=== PATIENT | female | born 1935 | race Caucasian/White ===

== ENCOUNTER 2017-11-28 15:15 | Outpatient (CLI) | payer MEDICARE ==
[2017-11-28 17:17] LABS: INR 2.4 (0.8-1.2); PT - PROTHROMBIN TIME 27.4 secs (9.9-12.6)
== END 2017-11-28 15:16 | disposition home or self-care (01) ==
LOC: LAB.F 15:15
PROVIDERS: ATTEND Emergency Medicine
DX: I48.91 Unspecified atrial fibrillation (principal)
CPT/HCPCS: 36415; 85610

== ENCOUNTER 2018-01-16 13:55 | Outpatient (CLI) | payer MEDICARE ==
[2018-01-16 17:37] LABS: INR 2.7 (0.8-1.2); PT - PROTHROMBIN TIME 30.6 secs (9.9-12.6)
== END 2018-01-16 13:56 | disposition home or self-care (01) ==
LOC: LAB.F 13:55
PROVIDERS: ATTEND Emergency Medicine
DX: I48.91 Unspecified atrial fibrillation (principal)
CPT/HCPCS: 36415; 85610

== ENCOUNTER 2018-02-15 11:20 | Outpatient (CLI) | payer MEDICARE | END 2018-02-15 11:21 | disposition critical access hospital (66) | LOC: EMS 11:20 | PROVIDERS: ATTEND Surgery | DX: T14.90XA Injury, unspecified, initial encounter (principal); W19.XXXA Unspecified fall, initial encounter; Y92.009 Unspecified place in unspecified non-institutional (private) residence as the place of occurrence of the external cause | CPT/HCPCS: A0425; A0427 ==

== ENCOUNTER 2018-02-15 11:23 | Observation (INO) | payer MEDICARE ==
[2018-02-15] MEDS ORDERED: HYDROmorphone 1 MG/ML CARPUJECT IVP STA (11:33)
[2018-02-15] MEDS ORDERED: ONDANSETRON 4 MG/2 ML VIAL IVP STA (11:33)
[2018-02-15] MEDS ORDERED: SODIUM CHLORIDE 0.9% 1,000 ML IV ONE (11:33)
--- NOTE | 2018-02-15 11:38 | ED Physician Documentation ---
PD HPI MAJOR TRAUMA - Stated complaint Stated Complaint: GLF - Chief complaint Chief Complaint: Trauma Hd/Nk - History obtained from History obtained from: Patient, EMS - History of Present Illness Mechanism of injury: Fell (possible syncope) Where injury occurred: Home Timing - onset: How many hours ago (1) Injury(ies) location: Head, Face, Neck, Right Upper Extremity (shoulder), Left Lower Extremity (hip) Pain level max: 8 Pain level now: 8 Quality of pain: Pain Associated symptoms: LOC (doesn't recall anything about the event.). No: Seizures, Weakness, Paresthesias, Dyspnea, Nausea / vomiting Symptoms improve with: Rest Worsens with: Movement Contributing factors: Anticoagulated (warfarin for Afib) Similar symptoms before: Has not had sx before Recently seen: Not recently seen - Additional information Additional information: Patient was at home today when a aircraft maintenance supervisor knocked on her door, the aircraft maintenance supervisor then heard a thud, entered the apartment and found her on the ground. Patient has no recollection of any events. Review of Systems Ten Systems: 10 systems reviewed and negative Constitutional: denies: Fever, Chills Throat: denies: Sore throat Respiratory: denies: Cough GI: denies: Vomiting Skin: denies: Rash Musculoskeletal: denies: Neck pain, Back pain Neurologic: denies: Focal weakness, Numbness, Headache PD PAST MEDICAL HISTORY - Past Medical History Past Medical History: Yes Cardiovascular: Atrial fibrillation - Past Surgical History Cardiovascular: Pacemaker - Allergies Allergies/Adverse Reactions: Allergies Allergy/AdvReac Type Severity Reaction Status Date / Time codeine Allergy Edema Verified 02/15/18 11:36 - Living Situation Living Situation: reports: Alone Living Arrangement: reports: At home - Social History Does the pt smoke?: No Does the pt drink ETOH?: No Does the pt have substance abuse?: No - Family History Family history: reports: Non contributory PD ED PE NORMAL - Vitals Vital signs reviewed: Yes - General General: Alert and oriented X 3, No acute distress - HEENT HEENT: Ears normal, Moist mucous membranes, Pharynx benign, Dentition benign, Other (Right eye is swollen, patient unable to open. There is significant swelling to the right periorbital area. Otherwise unremarkable examination of the head and face.) - Neck Neck: Supple, no meningeal sign, Other (Mild tender palpation mid C-spine. No step-off or deformity) - Cardiac Cardiac: RRR, Strong equal pulses - Respiratory Respiratory: No respiratory distress, Clear bilaterally - Abdomen Abdomen: Soft, Non tender, Non distended - Back Back: No spinal TTP - Derm Derm: Warm and dry - Extremities Extremities: Other (Tender palpation over the right glenohumeral joint. Also tender palpation over the left hip) - Neuro Neuro: Alert and oriented X 3, No motor deficit, No sensory deficit - Psych Psych: Normal mood, Normal affect Results - Vitals Vitals: Vital Signs - 24 hr 02/15/18 02/15/18 02/15/18 11:22 13:13 14:13 Temperature 36.1 C L Heart Rate 73 61 64 Respiratory 22 13 16 Rate Blood Pressure 152/72 H 135/67 H 115/61 O2 Saturation 98 98 97 02/15/18 02/15/18 14:57 15:36 Temperature Heart Rate 66 64 Respiratory 17 16 Rate Blood Pressure 128/69 120/64 O2 Saturation 98 97 Oxygen O2 Source Nasal cannula - EKG (time done) 1230 Rate: Rate (enter#) (71) Rhythm: NSR Henriette: Normal Intervals: Normal TX QRS: Normal, LVH Ischemia: Normal ST segments - Labs Labs: Laboratory Tests 02/15/18 02/15/18 02/15/18 11:39 11:39 11:39 WBC 12.9 H RBC 3.91 L Hgb 12.6 Hct 37.9 MCV 96.7 MCH 32.1 H MCHC 33.2 RDW 14.3 Plt Count 251 MPV 8.1 Neut # (Auto) 6.1 Lymph # (Auto) 5.4 H [place] # (Auto) 1.1 H Eos # (Auto) 0.2 Baso # (Auto) 0.1 Absolute Nucleated RBC 0.00 Nucleated RBC % 0.0 PT INR Sodium 138 Potassium 3.6 Chloride 102 Carbon Dioxide 25 Anion Gap 11.0 BUN 19 Creatinine 1.0 Estimated GFR (MDRD) 53 L Glucose 103 H Calcium 8.7 Total Bilirubin 0.7 AST 41 ALT 14 Alkaline Phosphatase 88 Troponin I < 0.04 Total Protein 7.0 Albumin 3.5 Globulin 3.5 Albumin/Globulin Ratio 1.0 Lipase 35 02/15/18 Unknown WBC RBC Hgb Hct MCV MCH MCHC RDW Plt Count MPV Neut # (Auto) Lymph # (Auto) [place] # (Auto) Eos # (Auto) Baso # (Auto) Absolute Nucleated RBC Nucleated RBC % PT 37.9 H INR 3.4 H Sodium Potassium Chloride Carbon Dioxide Anion Gap BUN Creatinine Estimated GFR (MDRD) Glucose Calcium Total Bilirubin AST ALT Alkaline Phosphatase Troponin I Total Protein Albumin Globulin Albumin/Globulin Ratio Lipase - Rads (name of study) head CT Radiology: Prelim report reviewed, EMP read contemporaneously, See rad report (Right orbital floor hematoma with blood within the maxillary sinus, better appreciated and detailed on dedicated maxillofacial CT. 2. No evidence for acute intracranial injury. 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 ) C-spine CT Radiology: Prelim report reviewed, EMP read contemporaneously, See rad report (No evidence for acute osseous injury cervical spine. Mild degenerative changes. ) facial bones CT Radiology: Prelim report reviewed, EMP read contemporaneously, See rad report (Right orbital floor and minimal tenting of the inferior rectus muscle without definite herniation. Buckling of the right medial maxillary wall suggestive of associated fracture. Right maxillary sinus hematoma. Extensive right periorbital hematoma. ) R shoulder xray Radiology: Prelim report reviewed, EMP read contemporaneously, See rad report (Findings are suspicious for a superior lateral humeral head fracture although difficult to diagnose with certainty. No distinct cortical break is seen. There is a "double density" at the superolateral aspect of the humeral head. If additional diagnostic confidence is needed, CT would be helpful. ) L hip xray Radiology: Prelim report reviewed, EMP read contemporaneously, See rad report (Evidence of prior left proximal femur fracture post ORIF. No acute fracture or other acute osseous abnormality identified. ) R UE CT Radiology: Prelim report reviewed, EMP read contemporaneously, See rad report ( No visible fracture. 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 ) PD MEDICAL DECISION MAKING - ED course Complexity details: reviewed results, re-evaluated patient, considered differential, d/w patient, d/w family, d/w business information consultant ED course: 83-year-old female presents to the emergency department after what sounds like a syncopal event to which she lost consciousness, fell to the ground and has a right orbital blowout fracture. Extraocular movements are intact. No hyphema. Normal vision out of the right eye. Discussed the case with Jay Mcdowell who recommends observing the patient overnight here for a syncopal workup and if there are issues with placement if she needs this, to recontact [facility] if she requires further assistance. I also discussed the case with Dr. Emiliano Lorenzo [facility] who recommends outpatient follow-up in his office for the fracture. Discussed the case with Dr. Tran, the hospitalist here who accepts for obs for syncope. This document was made in part using voice recognition software. While efforts are made to proofread this document, sound alike and grammatical errors may occur. Departure - Departure Disposition: ED Place in Observation Clinical Impression: Orbital floor (blow-out) closed fracture Syncope Qualifiers: Syncope type: unspecified Qualified Code(s): R55 - Syncope and collapse Periorbital contusion of right eye Qualifiers: Encounter type: initial encounter Qualified Code(s): S05.11XA - Contusion of eyeball and orbital tissues, right eye, initial encounter Condition: Stable
[2018-02-15 11:42] LABS: BASOPHILS # (AUTO) 0.1 10^3/uL (0.0-0.1); BASOPHILS % (AUTO) 0.8 %; EOSINOPHILS # (AUTO) 0.2 10^3/uL (0.0-0.7); EOSINOPHILS % (AUTO) 1.8 %; HGB - HEMOGLOBIN 12.6 g/dL (12.0-16.0); LYMPHOCYTES # (AUTO) 5.4 10^3/uL (1.5-3.5); LYMPHOCYTES % (AUTO) 41.7 %; MEAN CORPUSCULAR HEMOGLOBIN 32.1 pg (27.0-31.0); MEAN CORPUSCULAR HGB CONC 33.2 g/dL (32.0-36.0); MEAN CORPUSCULAR VOLUME 96.7 fL (81.0-99.0); MEAN PLATELET VOLUME 8.1 fL (7.9-10.8); MONOCYTES # (AUTO) 1.1 10^3/uL (0.0-1.0); MONOCYTES % (AUTO) 8.5 %; NEUTROPHILS # (AUTO) 6.1 10^3/uL (1.5-6.6); NEUTROPHILS % (AUTO) 47.2 %; PLT - PLATELET COUNT 251 10^3/uL (130-450); RED BLOOD COUNT 3.91 10^6/uL (4.20-5.40); RED CELL DISTRIBUTION WIDTH 14.3 % (12.0-15.0); WHITE BLOOD COUNT 12.9 x10^3/uL (4.8-10.8)
[2018-02-15 11:59] LABS: ALBUMIN 3.5 g/dL (3.2-5.5); BILIRUBIN,TOTAL 0.7 mg/dL (0.2-1.0); CALCIUM 8.7 mg/dL (8.5-10.3)
--- NOTE | 2018-02-15 12:24 | CT Report ---
Reason: fall Procedure Date: 02/15/2018 Accession Number: [id number] / [id number] Procedure: CT - Cervical Spine W/O CPT Code: FULL RESULT: EXAM: CT CERVICAL SPINE WITHOUT CONTRAST DATE: 02/15/2018 11:59 AM. HISTORY: Fall. COMPARISONS: None. TECHNIQUE: Thin-section axial images were acquired of the cervical spine without contrast. Post-processing: Coronal and sagittal reformats. Other: None. In accordance with CT protocol optimization, one or more of the following dose reduction techniques were utilized for this exam: automated exposure control, adjustment of mA and/or KV based on patient size, or use of iterative reconstructive technique. FINDINGS: Mild straightening of the normal cervical lordosis, which may be due to muscle spasm or c-collar placement. No evidence for acute fracture. Mild degenerative changes of the cervical spine, most prominent at the C3-C5 levels. Minimal 2 mm anterolisthesis of C5 on C6. Other: The paravertebral and prevertebral soft tissues are unremarkable. The lung apices are clear. IMPRESSION: No evidence for acute osseous injury cervical spine. Mild degenerative changes. [facility]
[2018-02-15 12:31] LABS: INR 3.4 (0.8-1.2); PT - PROTHROMBIN TIME 37.9 secs (9.9-12.6)
--- NOTE | 2018-02-15 12:41 | CT Report ---
Reason: fall Procedure Date: 02/15/2018 Accession Number: [id number] / [id number] Procedure: CT - Head W/O CPT Code: FULL RESULT: EXAM: CT HEAD EXAM DATE: 02/15/2018 11:59 AM. CLINICAL HISTORY: Fall. COMPARISON: FACIAL BONES W/O 02/15/2018 11:41 AM. TECHNIQUE: Multiaxial CT images were obtained from the foramen magnum to the vertex. Reformats: Sagittal and coronal. IV contrast: None. In accordance with CT protocol optimization, one or more of the following dose reduction techniques were utilized for this exam: automated exposure control, adjustment of mA and/or KV based on patient size, or use of iterative reconstructive technique. FINDINGS: Parenchyma: No intraparenchymal hemorrhage. No evidence of mass or midline shift. Hypodensities within the right frontal and left occipital lobe appear to represent old infarcts. Additional confluent deep white matter hypodensities, nonspecific however suggestive of chronic microvascular disease. Extraaxial Spaces: No subdural or epidural collections identified. Ventricles: Normal in size and position. Sinuses and Orbits: Air-blood level within the right maxillary sinus. Bones: Right orbital floor fracture better appreciated on dedicated maxillofacial CT. Other: Extensive right periorbital hematoma. IMPRESSION: 1. Right orbital floor hematoma with blood within the maxillary sinus, better appreciated and detailed on dedicated maxillofacial CT. 2. No evidence for acute intracranial injury. 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 [facility]
--- NOTE | 2018-02-15 12:47 | XRAY Report ---
Reason: fall Procedure Date: 02/15/2018 Accession Number: [id number] / [id number] Procedure: XR - Hip w/Pelvis 2-3V LT CPT Code: FULL RESULT: EXAM: LEFT HIP AND PELVIS RADIOGRAPHY EXAM DATE: 02/15/2018 12:27 PM. HISTORY: Ground-level fall. Pain. COMPARISONS: None. TECHNIQUE: 1 view of the pelvis and 1 view of the left hip. FINDINGS: Bones: Bones are diffusely demineralized. There is evidence of prior left proximal femoral fracture status post ORIF with a femoral neck screw and interlocking long intramedullary nail. There are proximal cerclage wires and a distal interlocking screw. The distal margin of the hardware is not included in the [id number]. Alignment appears anatomic. No residual fracture line or acute fracture identified. Joints: The bilateral hip, pubis symphysis, and sacroiliac joints are preserved. Soft Tissues: There are multiple phleboliths in the pelvis. There are foci of dystrophic ossification adjacent to the greater trochanter of the left proximal femur. No soft tissue swelling. IMPRESSION: Evidence of prior left proximal femur fracture post ORIF. No acute fracture or other acute osseous abnormality identified. [facility]
--- NOTE | 2018-02-15 12:56 | CT Report ---
Reason: fall Procedure Date: 02/15/2018 Accession Number: [id number] / [id number] Procedure: CT - Facial Bones W/O CPT Code: FULL RESULT: EXAM: CT MAXILLOFACIAL WITHOUT CONTRAST EXAM DATE: 02/15/2018 11:59 AM. CLINICAL HISTORY: Fall. COMPARISONS: None. TECHNIQUE: Thin-section axial images were acquired of the face without contrast. Post-processing: Coronal and sagittal reformats. Other: None. In accordance with CT protocol optimization, one or more of the following dose reduction techniques were utilized for this exam: automated exposure control, adjustment of mA and/or KV based on patient size, or use of iterative reconstructive technique. FINDINGS: Right inferior orbital wall fracture. There is tenting of the most inferior aspect of the inferior rectus muscle (coronal series 8 image 59) however no herniation of the muscle through the bony defect. The globe and remaining intra-ocular muscles appear intact. Associated buckling of the medial maxillary wall (axial series 2, image 87). No other fractures of the zygomatic arch or temporomandibular joints. Fluid within the right ethmoid, right sphenoid and bilateral frontal sinuses. IMPRESSION: Right orbital floor and minimal tenting of the inferior rectus muscle without definite herniation. Buckling of the right medial maxillary wall suggestive of associated fracture. Right maxillary sinus hematoma. Extensive right periorbital hematoma. Findings discussed with at 12:28 pm. [facility]
--- NOTE | 2018-02-15 12:57 | XRAY Report ---
Reason: fall Procedure Date: 02/15/2018 Accession Number: [id number] / [id number] Procedure: XR - Shoulder 3 View RT CPT Code: FULL RESULT: EXAM: RIGHT SHOULDER RADIOGRAPHY EXAM DATE: 02/15/2018 12:24 PM. CLINICAL HISTORY: Fall. COMPARISON: None. TECHNIQUE: 3 views. FINDINGS: Bones: No distinct cortical fractures or fracture lines. Please note, however, that there is a "double density" at the superior lateral aspect of the femoral head. Joints: AC joint is moderately osteoarthritic. Glenohumeral joint is intact. Soft tissues: The visualized hemithorax is unremarkable. No soft tissue swelling. IMPRESSION: 1. Findings are suspicious for a superior lateral humeral head fracture although difficult to diagnose with certainty. No distinct cortical break is seen. There is a "double density" at the superolateral aspect of the humeral head. If additional diagnostic confidence is needed, CT would be helpful. [facility]
--- NOTE | 2018-02-15 14:54 | CT Report ---
Reason: possible humeral head fracture Procedure Date: 02/15/2018 Accession Number: [id number] / [id number] Procedure: CT - Upper Extremity Right W/O CPT Code: FULL RESULT: EXAM: RIGHT SHOULDER CT WITHOUT CONTRAST EXAM DATE: 02/15/2018 02:24 PM. CLINICAL HISTORY: Possible humeral head fracture. COMPARISON: Shoulder 3 views right 02/15/2018 11:55 AM. TECHNIQUE: Thin-section axial images were acquired of the shoulder without contrast. Post-processing: Oblique coronal and sagittal reformats. Other: None. In accordance with CT protocol optimization, one or more of the following dose reduction techniques were utilized for this exam: automated exposure control, adjustment of mA and/or KV based on patient size, or use of iterative reconstructive technique. FINDINGS: Bones: Mild generalized osteopenia. No visible fracture. Acromioclavicular Region: The patient has a type II acromion. There is mild acromioclavicular joint osteoarthritis. Glenohumeral Joint: There is mild glenohumeral osteoarthritis. Musculature: Normal. No fatty atrophy. Other: The visualized lungs are unremarkable. No lymphadenopathy in the visualized axilla. IMPRESSION: 1. No visible fracture. 2. 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 [facility] MUSCULOSKELETAL RADIOLOGY SECTION
[2018-02-15] MEDS ORDERED: SODIUM CHLORIDE FLUSH 0.9% 10 ML SYRINGE IVP PRN (15:52)
[2018-02-15] MEDS ORDERED: ONDANSETRON 4 MG/2 ML VIAL IVP PRN (15:52)
[2018-02-15] MEDS ORDERED: ONDANSETRON ODT 4 MG TABLET TL PRN (15:52)
[2018-02-15] MEDS: oxyCODONE 5 MG TABLET PO PRN (17:43)
[2018-02-15] MEDS: SODIUM CHLORIDE FLUSH 0.9% 10 ML SYRINGE IVP SCH (17:58)
--- NOTE | 2018-02-15 18:00 | HISTORY & PHYSICAL EXAMINATION ---
Chief Complaint - Chief Complaint Chief Complaint: fall with damage to right face History of Present Illness - Admitted From Admitted From:: ROBY/ER - History Obtained From Records Reviewed: [facility] History obtained from: Dr. Natarajan, son and patient Exam Limitations: memory loss - History of Present Illness HPI Comment/Other: She is an 83-year-old female who [place]. She is a [facility] patient from [facility]. She moved up to the [facility] from [place], [place]. When that was not satisfactory for her son, he [place] be close to him. She last saw her primary care provider, which is Dr. Isa Bonilla in [place], 2 months ago. Her son describes her as a very sedentary person. Apathetic, and very private and really does not want to do much. The whole reason she moved up to [place] was because her in the spring 2016. And he had to move her up from the [facility] to up here. She has always been a relatively sedate person. Her did "absolutely everything" for her. Her son encourages her to get up and walk around but she just does not. She spends her day in the chair/recliner, in her assisted living facility. She does get up to walk to the dining room with her walker, and needs help with standby dressing, standby bathing. Memory is "just vague". It has been very frustrating for him to motiv ate her. While she was always a sedentary, quiet person before, with the loss of her she seems to have lost any gumption, or desire to be with family. She states many times that she misses her , and that she wishes she was with him. She is a nondenominational lady, and does find comfort in her oriental orthodox. She has been falling a few times in the last couple of years. She has a peripheral neuropathy of her feet, but she also has residual ataxia of a stroke, and she loses her balance. This is the second time she is fallen out of a chair after being asleep. He thinks what happened is that she was asleep in her chair. Someone knocked on her door. She put the recliner down and tried to get up quickly, but lost her balance and then fell. She did not have a loss of consciousness. When she fell she fell forward onto the right side of her body and landed with her face on the floor. She denies chest pain, fever, chest congestion. There is been no recent change in her physical status. She just saw her physician 2 months ago and there is been no change in her medications. Appetite is the same. No change in bowel or bladder habits. Tends toward constipation. After falling on the floor, the person knocking of the door heard her fall. They went into her room and found her on the ground. She was awake, responsive. Ambulance was called and she was brought to the emergency room. She is normotensive, afebrile, oxygenating normally on room air. She has completely closed right eyelids right eye from edematous ecchymosis. The entire orbital structure of her face on the right side into the right judaism is purple. Hyphema in the cornea. Extraocular movement is intact intact. She had a cervical spine CT, facial bone CT, head CT, hip pelvis x-ray, shoulder x-ray, and upper extremity CT. There was a humerus fracture suspected because on that right side it hurts so badly. She has right orbital floor fracture and minimal tenting of the inferior rectus muscle without definite herniation. Buckling of the right medial maxillary wall suggestive of an associated fracture. Right maxillary sinus hematoma. Extensive right periorbital hematoma. She has a history of chronic atrial fibrillation, has a pacer, and is on Coumadin. INR is 3.4. Dr. Torres, the emergency room physician, contacted Dr. Emiliano Lorenzo. This was after [facility] did not return his phone call. Dr. Lorenzo has reviewed the CT and states he can see her in a week. We are admitting her observation for the question of syncope. History - Past Medical History Cardiovascular: reports: Atrial fibrillation Respiratory: reports: None Neuro: reports: CVA (that is possibly embolic from afib before she was diagnosed and treated.), Peripheral neuropathy Endocrine/Autoimmune: reports: Type 2 diabetes (with peripheral neuropathy) GI: reports: None INDEX EDITOR: reports: Other ( with 1 stillbirth) : reports: Incontinence HEENT: reports: Chronic sinusitis Psych: reports: Depression Musculoskeletal: reports: Osteoarthritis (stiff and makes her not want to move) Derm: reports: None MRSA Hx?: No - Past Surgical History Ortho: reports: Hip replacement (after a fall and femur fracture 7 years ago) /INDEX EDITOR: reports: section Cardiovascular: reports: Pacemaker - Family & Social History Family History Comment/Other: Mom at age 73 of heart. Dad also in his early 80s of heart disease. 3 sisters and one brother. One older sister is alive. The others are from heart, breast cancer, and leukemia. 2 children. One was stillborn. Son, who accompanies her, states that he is healthy. No blood pressure, cancer, diabetes, heart, or thyroid disease. Living arrangement: Assisted living Living Situation: With caregiver(s) Social History Notes: She was born in [place]. Went to [place] when her father moved them there to be close to a daughter who moved to the [place] area. She met her , and they were for many years. He worked for the [employer]. 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 Her wanted her to retire so that they could travel in the and they retired when she was 39. They traveled up and down the [place]. Their favorite places were [place] in [place]. From the [facility] they moved to [place] in [place]. It was in [place] that he had a sudden heart attack, and about a month later. This was in the spring 2016. From there she was moved to [place]. [place]. She smoked a little bit when she was younger. It was mainly to "try it out" but it never stuck. She never had a problem with alcohol abuse and really rarely ever drink. She has no history of other recreational substance abuse. - Substance History Use: Uses substance without health or social issues: NONE Abuse: Recurrent use of substance despite neg consequences: NONE Dependence: Experiences withdrawal or developed tolerances: NONE - POLST Patient has POLST: No POLST Status: DNR (She does not want to be kept alive if she has cardiac or pulmonary arrest. She does not have a POLST form yet but son and she will sit down and fill one out with me.) Meds/Allgy - Home Medications Home Medications: Ambulatory Orders Medication Instructions Recorded Confirmed Atenolol 25 mg PO QPM 02/15/18 02/15/18 Atorvastatin Calcium 40 mg PO QPM 02/15/18 02/15/18 Calcium Citrate/Vitamin D3 1 tab PO DAILY 02/15/18 02/15/18 [Calcium Citrate-Vit D3 Tablet] Cyanocobalamin (Vitamin B-12) 1,000 mcg PO DAILY 02/15/18 02/15/18 [Vitamin B-12 (500 mcg sublingual)] Docusate Sodium [Dss] 250 mg PO DAILY 02/15/18 02/15/18 Famotidine 40 mg PO BID 02/15/18 02/15/18 Fluticasone [Flonase] 2 sprays CASSANDRA DAILY 02/15/18 02/15/18 Furosemide 20 mg PO Q2D 02/15/18 02/15/18 Lisinopril 10 mg PO DAILY 02/15/18 02/15/18 Multivitamin [Theragran] 1 tab PO DAILY 02/15/18 02/15/18 QUEtiapine [SEROquel] 12.5 mg PO BID 02/15/18 02/15/18 Sennosides [Senna] 8.6 mg PO BID 02/15/18 02/15/18 Sertraline HCl 25 mg PO DAILY 02/15/18 02/15/18 Warfarin Sodium 0.5 mg PO MOTUTH@1700 02/15/18 02/15/18 Warfarin Sodium 1 mg PO SUWESA@1700 02/15/18 02/15/18 Warfarin Sodium 5 mg PO DAILY@1700 02/15/18 02/15/18 - Allergies Allergies/Adverse Reactions: Allergies Allergy/AdvReac Type Severity Reaction Status Date / Time codeine Allergy Edema Verified 02/15/18 11:36 Review of Systems - Constitutional Constitutional: reports: Fatigue. denies: Fever, Chills, Malaise, Weakness, P oor appetite, Diaphoresis, Night sweats - Eyes Eyes: reports: Pain (right now), Irritation (right now). denies: Amaurosis, Blurred vision, Spots in vision, Field loss, Vision loss - Ears, Nose & Throat Ears, Nose & Throat: reports: Hearing loss, Vertigo, Nasal discharge (chronic), Nasal congestion (chronic), Postnasal drainage (chronic). denies: Ear pain, Hearing aids, Tinnitus, Nasal pain - Cardiovascular Cariovascular: reports: Irregular heart rate, Edema (chronic for years, with slight redness to shins, unchanged for years.), Lightheadedness. denies: Palpitations, Chest pain, Syncope, Exertional dyspnea, Decr. exercise tolerance - Respiratory Respiratory: denies: Cough, Sputum production, Wheezing, Snoring, Orthopnea, SOB at rest, SOB with exertion - Gastrointestinal Gastrointestinal: reports: Constipation. denies: Abdominal pain, Abdominal distention, Diarrhea, Change in bowel habits, Rectal bleeding, Black stools, Bloody stools, Reflux/heartburn - Genitourinary Genitourinary: reports: Urgency, Incontinence. denies: Dysuria, Frequency, Hematuria, Flank pain, Nocturia, Urethral discharge - Musculoskeletal Musculoskeletal: reports: Muscle pain, Back pain, Muscle aches, Stiffness. denies: Limited range of motion, Muscle weakness, Gout, Joint pain, Joint swelling - Integumentary Integumentary: denies: Rash, Pruritis, Lesions, Dryness - Neurological Neurological: reports: Headache (right now on right side), Numbness (of both feet to ankles), Memory problems, Pre-existing deficit (gait ataxia). denies: General weakness, Focal weakness, Dizziness, Seizures, Incoordination, Slurred speech - Psychiatric Psychiatric: reports: Depression, Delusions (very paranoid last year that people were listening in in her room in [facility]. That they were scheming to get her into Memory care. Better thoughts since moving here.). denies: Anxiety, Suicidal - Endocrine Endocrine: denies: Polyuria, Polydypsia, Polyphagia - Hematologic/Lymphatic Hematologic/Lymphatic: reports: Bruising, Petechiae. denies: Anemia, Blood clots Prior Level of Functionality: She is relatively sedentary. She has easy loss of balance. But also really hates to exercise or do anything. She will prefer to spend her days in her recliner. She reluctantly cooperates walking down to the dining room. She uses a walker all the time. Son and she endorse that she does use it. She has fallen 3 or 4 times in the last year. Mainly because of loss of balance. She needs help with bathing, and help with dressing but tries to avoid having people help her. She does need help with getting her medicines done. She last drove in the spring 2016 when she had to drive her to the hospital. Son pays her bills and takes care of the finances. Exam - Vital Signs Reviewed Vital Signs: Yes Vital Signs: Vital Signs x48h Temp Pulse Resp BP Pulse Ox 02/15/18 16:19 64 14 130/73 99 02/15/18 15:36 64 16 120/64 97 02/15/18 14:57 66 17 128/69 98 02/15/18 14:13 64 16 115/61 97 02/15/18 13:13 61 13 135/67 H 98 02/15/18 11:22 36.1 C L 73 22 152/72 H 98 - Physical Exam General Appearance: positive: No acute distress, Alert, Other (Elderly white female laying comfortably in the ER gurney, the entire skin around her right eye is black, eyelids closed, hyphema, bruising goes into the right judaism.She is complaining of increasing pain. Tylenol helps a little bit.) Eyes Bilateral: positive: PERRL, EOMI, Other (Right sclera injected) ENT: positive: Pharynx nml Neck: positive: No JVD. negative: Stiff neck, Carotid bruit Respiratory: positive: Chest non-tender. negative: Wheezes, Rales, Rhonchi Cardiovascular: positive: Regular rate & rhythm, Systolic murmur. negative: Gallop/S4, Friction rub Peripheral Pulses: positive: 1+ Abdomen: positive: Non-tender, No organomegaly, Nml bowel sounds, No distention Skin: positive: Warm, Dry, Other (Lin[place]us, chronic venous stasis discoloration, ov er the shins of both legs. Right leg is a little bit better than left leg. No open ulcers.) Extremities: positive: Pedal edema (From the feet up to almost the knees. 1+ at the feet, and trace edema by the time he get to the knees.). negative: Full ROM (Both shoulders really hurt, and flexing and extending her neck really hurts. She feels very stiff and sore all over.) Neurologic/Psychiatric: positive: Oriented x3, CN's nml (2-12), Other (She cooperates with the exam and will move all extremities for me. She lives some off the bed. Hand adobe maker strength in both hands is intact, mildly weak. I attribute that more to aging then to a deficit.) Babinski Reflex: Right: Down, Left: Down Conclusion/Plan - Problem List (1) Orbital floor (blow-out) closed fracture Conclusion/Plan: Subsequent to a fall out of a chair. It seems relatively clear that her falling down has more to do with being woken from asleep and getting out of a chair t [place] true syncope. She will be placed in observation, nevertheless, for syncopal workup. Plan: Dr. Torres has already done a telephone consult with Dr. Lorenzo He will see the patient in the office in the next week. (2) Fall from chair, initial encounter Conclusion/Plan: From loss of balance in an elderly woman who is sedentary, has residual gait ataxia, and a dense peripheral neuropathy of her feet.Already uses a walker. We will have her see physical therapy for evaluation while here.I do not think she has syncope. This is the second time she is done this. Plan is for her to return to her assisted living facility. She may benefit from physical therapy there. Although her son warns me that she is very resistant to any type of physical activity. Check echocardiogram, keep her on telemetry. Check carotid Dopplers. (3) Prolonged INR Conclusion/Plan: Hold Coumadin for tonight. Recheck pro time in the morning. At this time I do not need to use a reversal agent. (4) Chronic atrial fibrillation Conclusion/Plan: On her EKG she has sinus rhythm. We will place on telemetry. Already has 2 cardiac enzymes that are negative. - Lab Results Fish Bones: 02/15/18 11:39 02/15/18 11:39 - Diagnostic Imaging Results Diagnostic Imaging Results: positive: Final report reviewed Diagnostic Imaging Results Comments: CT OF HEAD EXAM DATE: 02/15/2018 11:59 AM. CLINICAL HISTORY: Fall. COMPARISON: FACIAL BONES W/O 02/15/2018 11:41 AM. TECHNIQUE: Multiaxial CT images were obtained from the foramen magnum to the vertex. Reformats: Sagittal and coronal. IV contrast: None. In accordance with CT protocol optimization, one or more of the following dose reduction techniques were utilized for this exam: automated exposure control, adjustment of mA and/or KV based on patient size, or use of iterative reconstructive technique. FINDINGS: Parenchyma: No intraparenchymal hemorrhage. No evidence of mass or midline shift. Hypodensities within the right frontal and left occipital lobe appear to represent old infarcts. Additional confluent deep white matter hypodensities, nonspecific however suggestive of chronic microvascular disease. Extraaxial Spaces: No subdural or epidural collections identified. Ventricles: Normal in size and position. Sinuses and Orbits: Air-blood level within the right maxillary sinus. Bones: Right orbital floor fracture better appreciated on dedicated maxillofacial CT. Other: Extensive right periorbital hematoma. IMPRESSION: 1. Right orbital floor hematoma with blood within the maxillary sinus, better appreciated and detailed on dedicated maxillofacial CT. 2. No evidence for acute intracranial injury. 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 CT MAXILLOFACIAL WITHOUT CONTRAST EXAM DATE: 02/15/2018 11:59 AM. CLINICAL HISTORY: Fall. COMPARISONS: None. TECHNIQUE: Thin-section axial images were acquired of the face without contrast. Post-processing: Coronal and sagittal reformats. Other: None. In accordance with CT protocol optimization, one or more of the following dose reduction techniques were utilized for this exam: automated exposure control, adjustment of mA and/or KV based on patient size, or use of iterative reconstructive technique. FINDINGS: Right inferior orbital wall fracture. There is tenting of the most inferior aspect of the inferior rectus muscle (coronal series 8 image 59) however no herniation of the muscle through the bony defect. The globe and remaining intra-ocular muscles appear intact. Associated buckling of the medial maxillary wall (axial series 2, image 87). No other fractures of the zygomatic arch or temporomandibular joints. Fluid within the right ethmoid, right sphenoid and bilateral frontal sinuses. IMPRESSION: Right orbital floor and minimal tenting of the inferior rectus muscle without definite herniation. Buckling of the right medial maxillary wall suggestive of associated fracture. Right maxillary sinus hematoma. Extensive right periorbital hematoma. Findings discussed with at 12:[address] CERVICAL SPINE WITHOUT CONTRAST DATE: 02/15/2018 11:59 AM. HISTORY: Fall. COMPARISONS: None. TECHNIQUE: Thin-section axial images were acquired of the cervical spine without contrast. Post-processing: Coronal and sagittal reformats. Other: None. In accordance with CT protocol optimization, one or more of the following dose reduction techniques were utilized for this exam: automated exposure control, adjustment of mA and/or KV based on patient size, or use of iterative reconstructive technique. FINDINGS: Mild straightening of the normal cervical lordosis, which may be due to muscle spasm or c-collar placement. No evidence for acute fracture. Mild degenerative changes of the cervical spine, most prominent at the C3-C5 levels. Minimal 2 mm anterolisthesis of C5 on C6. Other: The paravertebral and prevertebral soft tissues are unremarkable. The lung apices are clear. IMPRESSION: No evidence for acute osseous injury cervical spine. Mild degenerative changes. RIGHT SHOULDER RADIOGRAPHY EXAM DATE: 02/15/2018 12:24 PM. CLINICAL HISTORY: Fall. COMPARISON: None. TECHNIQUE: 3 views. FINDINGS: Bones: No distinct cortical fractures or fracture lines. Please note, however, that there is a "double density" at the superior lateral aspect of the femoral head. Joints: AC joint is moderately osteoarthritic. Glenohumeral joint is intact. Soft tissues: The visualized hemithorax is unremarkable. No soft tissue swelling. IMPRESSION: 1. Findings are suspicious for a superior lateral humeral head fracture although difficult to diagnose with certainty. No distinct cortical break is seen. There is a "double density" at the superolateral aspect of the humeral head. If additional diagnostic confidence is needed, CT would be helpful. RIGHT SHOULDER CT WITHOUT CONTRAST EXAM DATE: 02/15/2018 02:24 PM. CLINICAL HISTORY: Possible humeral head fracture. COMPARISON: Shoulder 3 views right 02/15/2018 11:55 AM. TECHNIQUE: Thin-section axial images were acquired of the shoulder without contrast. Post-processing: Oblique coronal and sagittal reformats. Other: None. In accordance with CT protocol optimization, one or more of the following dose reduction techniques were utilized for this exam: automated exposure control, adjustment of mA and/or KV based on patient size, or use of iterative reconstructive technique. FINDINGS: Bones: Mild generalized osteopenia. No visible fracture. Acromioclavicular Region: The patient has a type II acromion. There is mild acromioclavicular joint osteoarthritis. Glenohumeral Joint: There is mild glenohumeral osteoarthritis. Musculature: Normal. No fatty atrophy. Other: The visualized lungs are unremarkable. No lymphadenopathy in the visualized axilla. IMPRESSION: 1. No visible fracture. 2. 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 LEFT HIP AND PELVIS RADIOGRAPHY EXAM DATE: 02/15/2018 12:27 PM. HISTORY: Ground-level fall. Pain. COMPARISONS: None. TECHNIQUE: 1 view of the pelvis and 1 view of the left hip. FINDINGS: Bones: Bones are diffusely demineralized. There is evidence of prior left proximal femoral fracture status post ORIF with a femoral neck screw and interlocking long intramedullary nail. There are proximal cerclage wires and a distal interlocking screw. The distal margin of the hardware is not included in the [id number]. Alignment appears anatomic. No residual fracture line or acute fracture identified. Joints: The bilateral hip, pubis symphysis, and sacroiliac joints are preserved. Soft Tissues: There are multiple phleboliths in the pelvis. There are foci of dystrophic ossification adjacent to the greater trochanter of the left proximal femur. No soft tissue swelling. IMPRESSION: Evidence of prior left proximal femur fracture post ORIF. No acute fracture or other acute osseous abnormality identified. - EKG Results EKG Interpreted Independently: No EKG Comparison: No prior EKG EKG Findings: NSR w 1st degree AVB. No pacer spikes. Core Measures - Anticipated LOS I expect patient to be DC'd or transferred within 96 hours.: Yes - DVT/VTE - Prophylaxis VTE/DVT Device ordered at admit?: Yes
--- NOTE | 2018-02-15 18:41 | ADVANCE CARE PLANNING NOTE ---
Advance Care Planning - Date/Time Date: 02/15/18 Time: 18:39 - Purpose of encounter Text: To establish with son and her what her wishes are with regards to resuscitation, and begin discussions about what she defines as a good quality of life - Parties in attendance Parties in attendance: Son, patient - Decisional capacity Decisional capacity of: Patient is somewhat limited because of vague memory and a very reticent personality - Subjective/Patient's story Subjective/Patient's story: She is an 83-year-old female who has been living [place] the [place] for about a year. She is a [facility] patient from [facility]. She moved up to the [facility] from [place], [place]. When that was not satisfactory for her son, he moved her [place] to be close to him. She last saw her primary care provider, which is Dr. Isa Bonilla in [place], 2 months ago. She was born in [place]. Went to [place] when her father moved them there to be close to a daughter who moved to the [place] area. She met her , and they were for many years. He worked for the [employer]. She worked for [employer]. Her wanted her to retire so that they could travel in the and they retired when she was 39. They traveled up and down the [place]. Their favorite places were [facility] in [place]. From the [facility] they moved to [place] in [place]. It was in [place], [place] that he had a sudden heart attack, and about a month later. This was in the spring 2016. From there she was moved to [place], [place]. From [place] she was moved [place]. Her son describes her as a very sedentary person. Apathetic, and very private and really does not want to do much. The whole reason she moved up to [place] was because her in the spring 2016. And he had to move her up from the [facility] to up here. She has always been a relatively sedate person. Her did "absolutely everything" for her. Her son encourages her to get up and walk around but she just does not. She spends her day in the chair/recliner, in her assisted living facility. She does get up to walk to the dining room with her walker, and needs help with standby dressing, standby bathing. Memory is "just vague". It has been very frustrating for him to motivate her. While she was always a sedentary, quiet person before, with the loss of her she seems to have lost any gumption, or desire to be with family. She states many times that she misses her , and that she wishes she was with him. She is a amish lady, and does find comfort in her religious. She has been falling a few times in the last couple of years. She has a peripheral neuropathy of her feet, but she also has residual ataxia of a stroke, and she loses her balance. This is the second time she is fallen out of a chair after being asleep. He thinks what happened is that she was asleep in her chair. Someone knocked on her door. She put the recliner down and tried to get up quickly, but lost her balance and then fell. She did not have a loss of consciousness. When she fell she fell forward onto the right side of her body and landed with her face on the floor. She denies chest pain, fever, chest congestion. There is been no recent change in her physical status. She just saw her physician 2 months ago and there is been no change in her medications. Appetite is the same. No change in bowel or bladder habits. Tends toward constipation. - Objective/Medical story Objective/Medical Story: She is an 83-year-old female who has [place] living [place] the [place] for about a year. She is a [facility] patient from [facility]. She moved up to the [facility] from [place], [place]. When that was not satisfactory for her son, he moved [place] to be close to him. She last saw her primary care provider, which is Dr. Isa Bonilla in [place], 2 months ago. She has been falling a few times in the last couple of years. She has a peripheral neuropathy of her feet, but she also has residual ataxia of a stroke, and she loses her balance. This is the second time she is fallen out of a chair after being asleep. He thinks what happened is that she was asleep in her chair. Someone knocked on her door. She put the recliner down and tried to get up quickly, but lost her balance and then fell. She did not have a loss of consciousness. When she fell she fell forward onto the right side of her body and landed with her face on the floor. She denies chest pain, fever, chest congestion. There is been no recent change in her physical status. She just saw her physician 2 months ago and there is been no change in her medications. Appetite is the same. No change in bowel or bladder habits. Tends toward constipation. After falling on the floor, the person knocking of the door heard her fall. They went into her room and found her on the ground. She was awake, responsive. Ambulance was called and she was brought to the emergency room. She is normote nsive, afebrile, oxygenating normally on room air. She has completely closed right eyelids right eye from edematous ecchymosis. The entire orbital structure of her face on the right side into the right anglican is purple. Hyphema in the cornea. Extraocular movement is intact intact. She had a cervical spine CT, facial bone CT, head CT, hip pelvis x-ray, shoulder x-ray, and upper extremity CT. There was a humerus fracture suspected because on that right side it hurts so badly. The CT of her humerus was negative. She has right orbital floor fracture and minimal tenting of the inferior rectus muscle without definite herniation. Buckling of the right medial maxillary wall suggestive of an associated fracture. Right maxillary sinus hematoma. Extensive right periorbital hematoma. She has a history of chronic atrial fibrillation, has a pacer, and is on Coumadin. INR is 3.4. She appears to be slightly confused and that her history is very vague. Difficult to get a linear history, and definitive fax. But she is alert, oriented to person and place. Complaining of right rib cage, right shoulder, and right face pain. Lungs are clear, and she has a regular rate and rhythm. The abdomen is soft. Nontender. Legs have trace edema with some tight notes of the anterior villareal skin and slight warmth and redness indicating chronic venous stasis. No focal deficits. - Goals of Care Goals of care determinations: They both agree that she would not want to lose any more independence than she already has. The idea of moving to a fci facility is not acceptable to her. As for goals with regards to things she would like to do, she really does not have any. She prefers to be left alone. She is already unhappy at the idea that she may need increased care at the assisted living facility with more people coming into her room. - Plan Plan: With her goal in mind of remaining is independent as possible, and going no further than the assisted living facility, I broach the topic of palliative care, or transitioning to a definitive "less is more" approach to her care. They have not thought about this before. While they are interested in this, they feel that they need more time to talk about it. As such she and her son will start to have conversations about what she really wants, and if he is in agreement, get back to me. After discussing resuscitative status with them, specifically a stated full CODE STATUS, with her philosophy of not wanting to further deteriorate, or further need more care, CODE STATUS is changed to DO NOT RESUSCITATE. - Code Status Code Status: Do Not Attempt Resuscitation - Time Spent on Advance Care Planning Time spent on advance care plannin
[2018-02-15] MEDS ORDERED: FUROSEMIDE 20 MG TABLET PO SCH (19:00)
[2018-02-15] MEDS: QUEtiapine 25 MG TABLET PO SCH (20:54)
[2018-02-15] MEDS: ACETAMINOPHEN 325 MG TABLET PO PRN (20:54)
[2018-02-15] MEDS: SENNA 8.6 MG TABLET PO SCH (20:54)
[2018-02-15] MEDS ORDERED: MORPHINE 2 MG/ML CARPUJECT IVP SCH (21:00)
[2018-02-15] MEDS ORDERED: ATORVASTATIN 40 MG TABLET PO SCH (21:00)
[2018-02-15] MEDS ORDERED: FAMOTIDINE 20 MG TABLET PO SCH (21:00)
[2018-02-15] MEDS ORDERED: ATENOLOL 25 MG TABLET PO SCH (21:00)
[2018-02-15] MEDS ORDERED: MORPHINE 2 MG/ML CARPUJECT ONE (21:04)
--- NOTE | 2018-02-15 22:57 | Ultrasound Report ---
Reason: possible syncope Procedure Date: 02/15/2018 Accession Number: [id number] / [id number] Procedure: US - Carotid Doppler Complete CPT Code: FULL RESULT: EXAM: BILATERAL CAROTID AND VERTEBRAL ARTERY DUPLEX DOPPLER ULTRASOUND: EXAM DATE: 02/15/2018 10:25 PM CLINICAL HISTORY: Possible syncope. COMPARISON: None. TECHNIQUE: Grayscale imaging, color Doppler, and duplex spectral Doppler were used to evaluate the carotid and vertebral arteries bilaterally. Static images were obtained. FINDINGS: Mild bilateral plaque is identified in the carotid arteries. Normal antegrade flow is present in bilateral vertebral arteries. VELOCITIES (cm/sec): Right CCA mid: PSV 75 cm/sec CCA dist: PSV 66 cm/sec ICA prox: PSV 95 cm/sec, EDV 27 cm/sec ICA mid: PSV 84 cm/sec, EDV 27 cm/sec ICA dist: PSV 91 cm/sec, EDV 30 cm/sec ECA: PSV 108 cm/sec Vert: PSV 48 cm/sec ICA/CCA: 1.26 Left CCA mid: PSV 107 cm/sec CCA dist: PSV 80 cm/sec ICA prox: PSV 112 cm/sec, EDV 28 cm/sec ICA mid: PSV 95 cm/sec, EDV 23 cm/sec ICA dist: PSV 68 cm/sec, EDV 20 cm/sec ECA: PSV 120 cm/sec Vert: PSV 48 cm/sec ICA/CCA: 1.04 Right thyroid nodule noted 1.2 x 1.1 x 0.9 cm. ICA diameter stenosis: Right: <50% by velocity and <70% by NASCET criteria. Left: <50% by velocity and <70% by NASCET criteria. IMPRESSION: 1. Mild bilateral carotid artery plaquing. 2. In the right carotid artery there are no elevated carotid artery velocities to suggest hemodynamically significant stenosis. 3. In the left carotid artery there are no elevated carotid artery velocities to suggest hemodynamically significant stenosis. 4. Normal antegrade flow is present in bilateral vertebral arteries. 5. Right thyroid nodule. Consider ultrasound evaluation. General Recommendations: Stenosis =50% ICA - Follow-up ultrasound 6-12 months Stenosis <50% ICA - High Risk Patient with plaque - Follow-up ultrasound 1-2 years Normal Study but High Risk Patient - Follow-up ultrasound 3-5 years Management recommendations and diagnostic criteria are based on current IAC endorsed standards in Carotid Artery Stenosis: Grayscale and Doppler Ultrasound Diagnosis. Validated velocity measurements with angiographic measurements and velocity criteria are extrapolated from diameter data as defined by the Society of Radiologists in Ultrasound Consensus Conference Radiology 2003; 229;340-346. RADIA
[2018-02-16] MEDS: SODIUM CHLORIDE FLUSH 0.9% 10 ML SYRINGE IVP SCH ×2 (01:05→08:40)
[2018-02-16] MEDS: ACETAMINOPHEN 325 MG TABLET PO PRN ×2 (04:06→11:58)
[2018-02-16 05:50] LABS: BASOPHILS # (AUTO) 0.1 10^3/uL (0.0-0.1); BASOPHILS % (AUTO) 0.9 %; EOSINOPHILS # (AUTO) 0.1 10^3/uL (0.0-0.7); EOSINOPHILS % (AUTO) 0.6 %; HGB - HEMOGLOBIN 11.5 g/dL (12.0-16.0); LYMPHOCYTES % (AUTO) 21.9 %; MEAN CORPUSCULAR HEMOGLOBIN 32.2 pg (27.0-31.0); MEAN CORPUSCULAR HGB CONC 32.6 g/dL (32.0-36.0); MEAN PLATELET VOLUME 8.1 fL (7.9-10.8); MONOCYTES # (AUTO) 0.9 10^3/uL (0.0-1.0); MONOCYTES % (AUTO) 9.8 %; NEUTROPHILS # (AUTO) 6.1 10^3/uL (1.5-6.6); NEUTROPHILS % (AUTO) 66.8 %; PLT - PLATELET COUNT 215 10^3/uL (130-450); RED BLOOD COUNT 3.56 10^6/uL (4.20-5.40); RED CELL DISTRIBUTION WIDTH 14.1 % (12.0-15.0); WHITE BLOOD COUNT 9.1 x10^3/uL (4.8-10.8)
[2018-02-16 05:54] LABS: INR 3.2 (0.8-1.2)
[2018-02-16] MEDS: oxyCODONE 5 MG TABLET PO PRN (08:38)
[2018-02-16] MEDS: QUEtiapine 25 MG TABLET PO SCH (08:39)
[2018-02-16] MEDS: SENNA 8.6 MG TABLET PO SCH (08:39)
[2018-02-16] MEDS ORDERED: LISINOPRIL 5 MG TABLET PO SCH (09:00)
[2018-02-16] MEDS ORDERED: POLYETHYLENE GLYCOL 3350 17 GM PACKET PO SCH (09:00)
[2018-02-16] MEDS ORDERED: DOCUSATE SODIUM 250 MG CAPSULE PO SCH (09:00)
[2018-02-16] MEDS ORDERED: FAMOTIDINE 20 MG TABLET PO SCH (09:00)
[2018-02-16] MEDS ORDERED: CALCIUM CITRATE PO SCH (09:00)
[2018-02-16] MEDS ORDERED: SERTRALINE 25 MG TABLET PO SCH (09:00)
[2018-02-16] MEDS ORDERED: VITAMIN D3 PO SCH (09:00)
[2018-02-16] MEDS ORDERED: MULTIVITAMIN TABLET PO SCH (09:00)
--- NOTE | 2018-02-16 12:31 | Discharge Plan ---
"Discharge Plan for SNF / [facility] - Discharge Plan And Transition Orders Disposition: 06 Home Health Service Condition: Stable Allergies and Adverse Reactions: Allergies Allergy/AdvReac Type Severity Reaction Status Date / Time codeine Allergy Edema Verified 02/15/18 11:36 - SNF / [facility] Transition Orders Admit to (Facility): [facility] Under the care of (Name): Isa Bonilla MD Discharge Diagnosis: 1. Right orbital floor fracture, closed 2. Cognitive deficit of aging 3. Chronic atrial fibrillation 4. Chronic anticoagulation status 5. Depressive disorder, possible adjustment reaction 6. History of embolic stroke 7. Type 2 diabetes mellitus, with peripheral neuropathy 8. Urinary incontinence 9. Osteoarthritis 10. Pacemaker status 11. Fall from chair Medicare Certification Statement: I do not certify that Post Hospital correction care is medically necessary on a continuing basis for any of the conditions for which she/he is receiving care during hospitalization. Notify PCP of admission and forward orders to primary provider for signature. Weight on admission and: Monthly Other Notification Orders: Call PCP immediately if patient develops dyspnea, chest pain/tightness or edema. House Bowel Program: Yes Additional Bowel Program Orders: If no BM after 2 days, nurse may give M.O.M. 30ml PO PRN and/or ducolax Supp 1 WV and/or ARY 250mg P.O., and/or senna 1-2 tabs PO. On day 3 nurse may give repeat above order until residents constipation is resolved. Annual Influenza Vaccine (between Oct 12 and May 11): Yes Two-step PPD per [facility] [phone] or approved exception documents: Yes Medication Orders: PLEASE REFER TO THE DISCHARGE MEDICATION LIST. - Medications New Prescriptions: oxyCODONE [Roxicodone] 2.5 mg PO Q6H PRN #30 tablet PRN Reason: Pain 5 to 7 - Diet Type: Geriatric Texture: Regular Liquids: Thin May have monthly special meal: Yes - Therapies | Activity Rehabilitation Potential: Return to independent living Activity: Activity as Tolerated Assistance Devices: Walker Additional Instructions: She was admitted to the hospital because she woke up while sitting in her recliner. A knock on the door startled her. When she got up, she fell and landed on her face. She has hurt her right shoulder, right rib cage, and has an orbital fracture of the floor of her right eye. She will need to see the oral maxillofacial surgeon in a week. Please make sure she has either transportation for that appointment set up. Her INR is still 3.2 on the day of discharge. Hold her Coumadin and do not resume her Coumadin until February 18. Pain will be a problem because of overall musculoskeletal stiffness and trauma. She can have half of a oxycodone tablet with Tylenol every 6 hours as needed but watch out for constipation."
--- NOTE | 2018-02-16 14:23 | XRAY Report ---
Reason: fall w rib cage pain Procedure Date: 02/16/2018 Accession Number: [id number] / [id number] Procedure: XR - Ribs 2 View RT CPT Code: FULL RESULT: EXAM: RIGHT RIB RADIOGRAPHY EXAM DATE: 02/16/2018 11:57 AM. CLINICAL HISTORY: Fall w rib cage pain. COMPARISON: SHOULDER 3 VIEW RT 02/15/2018 11:55 AM. TECHNIQUE: 2 views. FINDINGS: Bones: Diffusely demineralized. No displaced fracture or bone lesion. Lungs: No focal opacities evident. No pneumothorax or pleural effusions. Mediastinum: Heart and cardiomediastinal contours are unremarkable. There is mild atherosclerotic calcification of the aortic arch. There are calcified left hilar lymph nodes. There is a left subclavian implanted cardiac device with lead tips projecting over the right atrium and right ventricle. Other: None. IMPRESSION: 1. No acute displaced rib fracture identified. 2. No pleural effusion, pneumothorax, or other acute cardiopulmonary abnormality. RADIA
[2018-02-16 14:36] VITALS: BP 116/50
--- NOTE | 2018-02-16 20:10 | DISCHARGE SUMMARY ---
Physician: Marla Tran MD DATE OF ADMISSION: 02/15/2018 DATE OF DISCHARGE: 02/16/2018 DISCHARGE DIAGNOSES 1. Right orbital floor blowout closed fracture, initial encounter 2. Fall from chair. 3. Prolonged INR. 4. Chronic atrial fibrillation. 5. Depression. DISCHARGE MEDICATIONS 1. Atenolol 25 mg p.o. q.p.m. 2. Atorvastatin 40 mg p.o. q.p.m. 3. Calcium with vitamin D tablet daily. 4. B12 at 1000 mcg daily. 5. Docusate 250 daily. 6. Famotidine 40 mg b.i.d. 7. Fluticasone nasal spray 2 sprays each nostril daily. 8. Lasix 20 mg every 2 days. 9. Lisinopril 10 mg daily. 10. Theragran vitamin daily. 11. Seroquel 12.5 mg p.o. b.i.d. 12. Senna 8.6 b.i.d. 13. Sertraline 25 daily. 14. Tylenol 650 every 4 hours as needed for pain 15. Roxicodone 2.5 mg every 6 hours as needed for pain, number 30. 16. Resume Coumadin 5 mg daily at 1700 on 02/18/2018; Coumadin 1 mg on Saturday, Saturday, Saturday to be resumed after 02/18/2018; and Coumadin 0.5 mg on Tuesdays and after 02/18/2018. PRINCIPAL PROCEDURES 1. CT of head 2. Right orbital floor hematoma with blood within the maxillary sinus, no evidence for acute intracranial injury. Probable old infarcts on the right frontal and left occipital lobe with additional confluent severe microvascular ischemic disease. 3. CT maxillofacial without contrast. Right inferior orbital wall fracture. Tenting of the most inferior aspect of the inferior rectus muscle. No herniation of muscle through bony defect. Globe is intact. Buckling of the medial maxillary wall. No fracture of the zygomatic arch or TMJs. Fluid within the right ethmoid, right sphenoid, and bilateral frontal sinuses. 4. CT of C-spine with straightening of normal cervical lordosis. No acute fracture. Degenerative joint changes. 5. Right shoulder radiography showed possible superior lateral humeral head fracture. 6. Right shoulder CT without contrast shows osteopenia, type 2 acromion, glenohumeral arthritis, but no fracture. 7. Left hip and pelvis radiography, prior left proximal femur fracture status post, status post ORIF. No acute fracture. 8. Echocardiogram with EF 55%-60%. Severe right atrial enlargement. No aortic stenosis. RVSP at rest 45 mmHg. Mild to moderate tricuspid regurgitation. This is a preliminary report and final is pending. 9. Rib films were negative for fracture. 10. Carotid Dopplers negative for carotid stenosis and had only mild plaquing. HOSPITAL COURSE: This is an unfortunate 83-year-old woman who is depressed, withdrawn. This is per description of her son. She was moved to [place], [place], when her in the spring. Son then moved her to the [place] to be in an assisted living facility here, closer to him, about a year ago. She is followed by [facility] and last saw her physician 2 months ago in [place] on the [facility]. Son describes her as withdrawn, apathetic. Mainly sits in her room a lot and does not want to do anything. He finds it very frustrating. She has already had an incident where she fell asleep in her chair and fell out of it. With this incident, she thinks that she was asleep in her recliner. Someone knocked on her door, and she sat up out of a recliner and, in getting up, lost her footing and fell down and hit her face. She was brought to the hospital, where she was evaluated by the ER doctor, who wanted to make sure this was not a syncope problem. She was placed in observation overnight, where telemetry showed normal sinus rhythm, first-degree AV block, but no ectopy or arrhythmia. When she was initially admitted, she had severe facial swelling so that the right eyelids were completely shut. On the morning of discharge, after overnight observation, the edema around her eye was significantly improved. She was opening her eyelid, and extraocular movements were intact in all directions. She denies double vision. She had significant headache, and overall diffuse musculoskeletal pain that seemed to be relieved by oxycodone, but she has a chronic problem with constipation. Right rib cage films were done because she was having rib cage pain, but those were negative. She is forgetful, and does not always remember sequence of events. She seems to be a very vague historian, and I cannot tell if it is dementia or depression. Echocardiogram results and carotid results are as above. Again, overnight, there are no arrhythmias. We think that she simply fell out of her chair after being startled, after falling asleep. She is discharged in stable condition back to her assisted living facility. Temperature is 36.4, pulse of 64, blood pressure 116/50, respirations 16, 94% on room air. She is a muted-affect elderly woman, who looks her stated age. The right orbital skin area is completely black and blue, and she had a small hyphema last night that does not appear to be present today. Sclerae slightly injected. Extraocular movement intact. PHYSICAL EXAMINATION NECK: Supple with no carotid bruits. LUNGS: Clear to auscultation and percussion. CARDIAC: PMI is normally placed with a regular rate and rhythm and the pacer box in place. ABDOMEN: Soft, nontender. No organomegaly. Main complaint this morning, on the day of discharge, is diffuse musculoskeletal pain, but more severe in the right shoulder, right elbow, right rib cage, right hip. She is very stiff to move and very slow to move. She has chronic venous stasis changes of her lower extremity. Those are improved from overnight. It is hoped that she will see her primary care provider in the next 1 to 2 weeks. Son may or may not establish herself with a PCP on the [place]. [facility] insurance on the [place] is difficult to deal with. She will see Dr. Emiliano Lorenzo, oral maxillofacial surgeon, in the next week. He was notified of her admission last night, and says he can see here in the outpatient setting next week. TD: 02/16/2018 16:41 DAVID
== END 2018-02-16 13:10 | disposition home health service (06) ==
LOC: EDUNIT# → ED 11:23 → MS2 15:52
PROVIDERS: ADMIT Specialist; ATTEND Specialist
DX: S02.31XA Fracture of orbital floor, right side, initial encounter for closed fracture (principal); W07.XXXA Fall from chair, initial encounter; Z91.81 History of falling; Y92.099 Unspecified place in other non-institutional residence as the place of occurrence of the external cause; I48.2 Chronic atrial fibrillation; F32.9 Major depressive disorder, single episode, unspecified; E11.42 Type 2 diabetes mellitus with diabetic polyneuropathy; I69.393 Ataxia following cerebral infarction; M54.2 Cervicalgia; M25.552 Pain in left hip; M25.511 Pain in right shoulder; I07.1 Rheumatic tricuspid insufficiency; M19.90 Unspecified osteoarthritis, unspecified site; R39.15 Urgency of urination; R32 Unspecified urinary incontinence; K59.00 Constipation, unspecified; H91.90 Unspecified hearing loss, unspecified ear; Z79.01 Long term (current) use of anticoagulants; Z95.0 Presence of cardiac pacemaker; Z87.81 Personal history of (healed) traumatic fracture; Z98.890 Other specified postprocedural states; Z87.891 Personal history of nicotine dependence; Z66 Do not resuscitate
CPT/HCPCS: 36415; 70450; 70486; 71100; 72125; 73030; 73200; 73502; 80053; 83690; 84484; 85025; 85610; 93005; 93306; 93880; 96374; 96375; 99284; A9270; G0378; J1170; 99285

== ENCOUNTER 2018-02-25 23:57 | Outpatient (CLI) | payer MEDICARE | END 2018-02-25 23:58 | disposition critical access hospital (66) | LOC: EMS 23:57 | PROVIDERS: ATTEND Surgery | DX: R04.2 Hemoptysis (principal) | CPT/HCPCS: A0425; A0427 ==

== ENCOUNTER 2018-02-26 00:25 | Emergency (ER) | payer MEDICARE ==
--- NOTE | 2018-02-26 00:44 | ED Physician Documentation ---
PD HPI DYSPNEA - Stated complaint Stated Complaint: SOA - History obtained from History obtained from: Patient, EMS - History of Present Illness Timing - onset: How many days ago (2) Timing - details: Gradual onset, Waxing and waning Pain level now: 2 Improved by: Rest Worsened by: Other (movement, deep inspiration, palpation) Associated symptoms: Hemoptysis, Chest pain / discomfort. No: Fever, Cough Similar symptoms before: Has not had sx before Recently seen: Admitted - Additional information Additional information: fell 02/15 and admitted to [facility] due to injuries sustained as a result of the fall. presents at this time for 2 days of waxing and waning midline chest pain and mild dyspnea. chest pain is worse with movement, palpation, and deep inspiration Review of Systems Cardiac: reports: Chest pain / pressure. denies: Palpitations Respiratory: reports: Dyspnea, Hemoptysis. denies: Cough GI: reports: Reviewed and negative Musculoskeletal: denies: Neck pain Neurologic: denies: Generalized weakness, Headache PD PAST MEDICAL HISTORY - Past Medical History Cardiovascular: Hypertension, Atrial fibrillation - Present Medications Home Medications: Ambulatory Orders Medication Instructions Recorded Confirmed Atenolol 25 mg PO QPM 02/15/18 02/26/18 Atorvastatin Calcium 40 mg PO QPM 02/15/18 02/26/18 Calcium Citrate/Vitamin D3 1 tab PO DAILY 02/15/18 02/26/18 [Calcium Citrate-Vit D3 Tablet] Cyanocobalamin (Vitamin B-12) 1,000 mcg PO DAILY 02/15/18 02/26/18 [Vitamin B-12 (500 mcg sublingual)] Docusate Sodium [Dss] 250 mg PO DAILY 02/15/18 02/26/18 Famotidine 40 mg PO BID 02/15/18 02/26/18 Fluticasone [Flonase] 2 sprays CASSANDRA DAILY 02/15/18 02/26/18 Furosemide 20 mg PO Q2D 02/15/18 02/26/18 Lisinopril 10 mg PO DAILY 02/15/18 02/26/18 QUEtiapine [SEROquel] 12.5 mg PO BID 02/15/18 02/26/18 Sennosides [Senna] 8.6 mg PO BID 02/15/18 02/26/18 Sertraline HCl 25 mg PO DAILY 02/15/18 02/26/18 Acetaminophen [Tylenol] 650 mg PO Q4HR PRN tablet 02/16/18 02/26/18 Warfarin Sodium 0.5 mg PO MOTUTH@1700 #0 02/16/18 02/26/18 Warfarin Sodium 1 mg PO SUWESA@1700 #0 02/16/18 02/26/18 Warfarin Sodium 5 mg PO DAILY@1700 #0 02/16/18 02/26/18 Bisacodyl Supp [Dulcolax Supp] 1 supp [place] Q3D PRN 02/26/18 02/26/18 Carbamide Peroxide Otic Drop 5 drops EACHEAR DAILY PRN 02/26/18 02/26/18 [Debrox Otic Drops] Clotrimazole [Clotrimazole 3] 1 applic TOP QPM 02/26/18 02/26/18 Loperamide HCl [Anti-Diarrheal] 2 mg PO DAILY PRN 02/26/18 02/26/18 Mag Hydrox/Al Hydrox/Simeth 20 ml PO DAILY PRN 02/26/18 02/26/18 [Antacid Suspension] Pedi Multivit 158/Iron/Vit K1 1 tab PO DAILY 02/26/18 02/26/18 [Cerovite Jr Tablet Chew] - Allergies Allergies/Adverse Reactions: Allergies Allergy/AdvReac Type Severity Reaction Status Date / Time codeine Allergy Edema Verified 02/26/18 00:34 - Living Situation Living Arrangement: reports: Assisted living - Social History Does the pt smoke?: No PD ED PE NORMAL - Vitals Vital signs reviewed: Yes - General General: Alert and oriented X 3, No acute distress, Well developed/nourished - HEENT HEENT: PERRL, EOMI, Other (right facial and right neck echymosis) - Neck Neck: No bony TTP - Cardiac Cardiac: RRR, No murmur - Respiratory Respiratory: No respiratory distress, Clear bilaterally - Abdomen Abdomen: Soft, Non tender - Back Back: No spinal TTP - Extremities Extremities: No edema Results - Vitals Vitals: Oxygen O2 Source Room air - EKG (time done) No standard instances Rate: Rate (enter#) (62) Rhythm: NSR [place]: LAD Intervals: Normal [place] QRS: Normal Ischemia: Normal ST segments - Labs Labs: Laboratory Tests 02/26/18 02/26/18 02/26/18 00:40 00:40 00:40 WBC 9.5 RBC 3.92 L Hgb 12.7 Hct 38.2 MCV 97.5 MCH 32.5 H MCHC 33.4 RDW 14.0 Plt Count 283 MPV 8.1 Neut # (Auto) 5.4 Lymph # (Auto) 2.7 [place] # (Auto) 0.9 Eos # (Auto) 0.3 Baso # (Auto) 0.1 Absolute Nucleated RBC 0.00 Nucleated RBC % 0.0 PT INR APTT Sodium 138 Potassium 3.8 Chloride 104 Carbon Dioxide 28 Anion Gap 6.0 BUN 24 H Creatinine 1.0 Estimated GFR (MDRD) 53 L Glucose 112 H Calcium 9.0 Total Bilirubin 0.8 AST 18 ALT 12 Alkaline Phosphatase 104 Troponin I < 0.04 Total Protein 7.6 Albumin 3.7 Globulin 3.9 Albumin/Globulin Ratio 0.9 L Lipase 44 02/26/18 00:40 WBC RBC Hgb Hct MCV MCH MCHC RDW Plt Count MPV Neut # (Auto) Lymph # (Auto) [place] # (Auto) Eos # (Auto) Baso # (Auto) Absolute Nucleated RBC Nucleated RBC % PT 22.0 H INR 2.0 H APTT 37.1 H Sodium Potassium Chloride Carbon Dioxide Anion Gap BUN Creatinine Estimated GFR (MDRD) Glucose Calcium Total Bilirubin AST ALT Alkaline Phosphatase Troponin I Total Protein Albumin Globulin Albumin/Globulin Ratio Lipase - Rads (name of study) CT chest Radiology: Prelim report reviewed, See rad report PD MEDICAL DECISION MAKING - ED course Complexity details: reviewed old records, reviewed results, re-evaluated patient, considered differential, d/w patient Departure - Departure Disposition: 01 Home, Self Care Clinical Impression: Chest wall pain, Dyspnea Condition: Good Instructions: ED Contusion Chest Wall, ED Dyspnea Shortness of Breath Follow-Up: Hermes Brian MD [Primary Care Provider] - Discharge Date/Time: 02/26/18 04:53
[2018-02-26 00:53] LABS: BASOPHILS # (AUTO) 0.1 10^3/uL (0.0-0.1); BASOPHILS % (AUTO) 1.2 %; EOSINOPHILS # (AUTO) 0.3 10^3/uL (0.0-0.7); EOSINOPHILS % (AUTO) 3.3 %; HGB - HEMOGLOBIN 12.7 g/dL (12.0-16.0); LYMPHOCYTES # (AUTO) 2.7 10^3/uL (1.5-3.5); LYMPHOCYTES % (AUTO) 28.6 %; MEAN CORPUSCULAR HEMOGLOBIN 32.5 pg (27.0-31.0); MEAN CORPUSCULAR HGB CONC 33.4 g/dL (32.0-36.0); MEAN CORPUSCULAR VOLUME 97.5 fL (81.0-99.0); MEAN PLATELET VOLUME 8.1 fL (7.9-10.8); MONOCYTES # (AUTO) 0.9 10^3/uL (0.0-1.0); MONOCYTES % (AUTO) 9.6 %; NEUTROPHILS # (AUTO) 5.4 10^3/uL (1.5-6.6); NEUTROPHILS % (AUTO) 57.3 %; PLT - PLATELET COUNT 283 10^3/uL (130-450); RED BLOOD COUNT 3.92 10^6/uL (4.20-5.40); WHITE BLOOD COUNT 9.5 x10^3/uL (4.8-10.8)
[2018-02-26 01:03] LABS: ALBUMIN 3.7 g/dL (3.2-5.5); ALBUMIN/GLOBULIN RATIO 0.9 (1.0-2.2); BILIRUBIN,TOTAL 0.8 mg/dL (0.2-1.0); TOTAL PROTEIN 7.6 g/dL (6.7-8.2)
[2018-02-26] MEDS ORDERED: ACETAMINOPHEN 325 MG TABLET PO STA (01:36)
[2018-02-26] MEDS ORDERED: IOVERSOL 320 100 ML VIAL IVP ONE ×3 (01:46→05:07)
--- NOTE | 2018-02-26 02:33 | CT Report ---
Reason: midline bony chest pain, hemoptysis Procedure Date: 02/26/2018 Accession Number: [id number] / [id number] Procedure: CT - Chest W/ CPT Code: FULL RESULT: EXAM: CT CHEST EXAM DATE: 02/26/2018 02:16 AM. CLINICAL HISTORY: Midline bony chest pain, hemoptysis. Fell. Contusions on the chest. COMPARISONS: None. TECHNIQUE: Routine helical CT imaging was performed through the chest. IV contrast: Nonionic. Reconstructions: Coronal and sagittal. In accordance with CT protocol optimization, one or more of the following dose reduction techniques were utilized for this exam: automated exposure control, adjustment of mA and/or KV based on patient size, or use of iterative reconstructive technique. FINDINGS: Lungs/Pleura: Mild bibasilar atelectasis. No alveolar consolidation or pleural effusion seen. No pneumothorax. Mediastinum: Heart size normal to upper normal. Mild mitral annulus calcification and mild coronary artery calcifications. Small hiatal hernia. Mild wall thickening in the distal esophagus. Normal sized mediastinal lymph nodes. Moderate aortic atherosclerosis. Ascending aorta measures 3.8 cm. No aortic dissection seen. Great vessels are otherwise unremarkable. Bones: Osteopenia. Moderate vertebral body fracture of uncertain age at L1. Otherwise no obvious acute osseous abnormality. Visualized Abdomen: Possible fatty liver. 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 IMPRESSION: 1. Small hiatal hernia. Wall thickening in the distal esophagus. Correlate for any symptoms of esophagitis. 2. Osteopenia. Moderate vertebral body fracture of uncertain age at L1. Otherwise no acute osseous abnormality identified. RADIA
[2018-02-26 02:48] VITALS: BP 153/65
== END 2018-02-26 04:53 | disposition home or self-care (01) ==
LOC: EDUNIT# → ED 00:25
DX: R07.89 Other chest pain (principal); R06.00 Dyspnea, unspecified; I44.0 Atrioventricular block, first degree; I10 Essential (primary) hypertension; I48.91 Unspecified atrial fibrillation; Z79.01 Long term (current) use of anticoagulants
CPT/HCPCS: 36415; 71260; 80053; 83690; 84484; 85025; 85610; 85730; 93005; 99283; 99284; A9270; Q9967

== ENCOUNTER 2018-03-14 14:05 | Outpatient (CLI) | payer MEDICARE | END 2018-03-14 14:06 | disposition critical access hospital (66) | LOC: EMS 14:05 | PROVIDERS: ATTEND Surgery | DX: R51 Headache (principal); S01.21XA Laceration without foreign body of nose, initial encounter; W18.30XA Fall on same level, unspecified, initial encounter; Z91.81 History of falling; Y92.002 Bathroom of unspecified non-institutional (private) residence as the place of occurrence of the external cause; S00.81XA Abrasion of other part of head, initial encounter; S02.81XD Fracture of other specified skull and facial bones, right side, subsequent encounter for fracture with routine healing; W19.XXXD Unspecified fall, subsequent encounter; M54.2 Cervicalgia; M25.511 Pain in right shoulder; M25.531 Pain in right wrist; M79.642 Pain in left hand; M79.641 Pain in right hand; R04.0 Epistaxis | CPT/HCPCS: A0425; A0427 ==

== ENCOUNTER 2018-03-14 14:31 | Emergency (ER) | payer MEDICARE ==
--- NOTE | 2018-03-14 14:54 | ED Physician Documentation ---
PD HPI Fall - Stated complaint Stated Complaint: GLF, R SHOULDER PAIN - Chief complaint Chief Complaint: Trauma Hd/Nk - History obtained from History obtained from: Patient - History of Present Illness Mechanism of injury: Unknown Fall distance: Standing position Timing - onset: Today (Just prior to arrival.) Injury(ies) location: Head, Face, Right Upper Extremity Associated symptoms: Neck pain. No: LOC Worsens with: Movement, Palpation - Treatment prior to arrival Treatment prior to arrival: Medics administered Fentanyl 100 mcg. - Additional information Additional information: The patient is an 83-year-old female who arrives via ambulance after falling when walking to the bathroom about 1 hour prior to arrival. She has been complaining of pain mostly in her right shoulder, but also in her face and neck. She is uncertain what caused the fall, she has not attempted ambulation since the incident occurred. She denies chest pain or shortness of breath. Medics administered fentanyl, a total of 100 mcg while in route to the emergency department. Past medical history is significant for pacemaker placement. She was seen here 1 month ago after a syncopal episode, and suffered a right orbital floor fracture at that time. She had been on warfarin prior to that incident, but warfarin has since been discontinued. Review of Systems Constitutional: reports: Fatigue. denies: Fever Eyes: denies: Decreased vision Ears: denies: Tinnitus/ringing Nose: denies: Congestion Throat: denies: Sore throat Cardiac: denies: Chest pain / pressure, Palpitations Respiratory: denies: Dyspnea, Cough GI: denies: Abdominal Pain, Nausea, Vomiting : denies: Dysuria Skin: denies: Rash Musculoskeletal: reports: Neck pain, Joint pain (right shoulder) Neurologic: reports: Syncope, Head injury. 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 Cardiovascular: Pacemaker - Present Medications Home Medications: Ambulatory Orders Medication Instructions Recorded Confirmed Atenolol 25 mg PO QPM 02/15/18 02/26/18 Atorvastatin Calcium 40 mg PO QPM 02/15/18 02/26/18 Calcium Citrate/Vitamin D3 1 tab PO DAILY 02/15/18 02/26/18 [Calcium Citrate-Vit D3 Tablet] Cyanocobalamin (Vitamin B-12) 1,000 mcg PO DAILY 02/15/18 02/26/18 [Vitamin B-12 (500 mcg sublingual)] Docusate Sodium [Dss] 250 mg PO DAILY 02/15/18 02/26/18 Famotidine 40 mg PO BID 02/15/18 02/26/18 Fluticasone [Flonase] 2 sprays CASSANDRA DAILY 02/15/18 02/26/18 Furosemide 20 mg PO Q2D 02/15/18 02/26/18 Lisinopril 10 mg PO DAILY 02/15/18 02/26/18 QUEtiapine [SEROquel] 12.5 mg PO BID 02/15/18 02/26/18 Sennosides [Senna] 8.6 mg PO BID 02/15/18 02/26/18 Sertraline HCl 25 mg PO DAILY 02/15/18 02/26/18 Acetaminophen [Tylenol] 650 mg PO Q4HR PRN tablet 02/16/18 02/26/18 Warfarin Sodium 0.5 mg PO MOTUTH@1700 #0 02/16/18 02/26/18 Warfarin Sodium 1 mg PO SUWESA@1700 #0 02/16/18 02/26/18 Warfarin Sodium 5 mg PO DAILY@1700 #0 02/16/18 02/26/18 Bisacodyl Supp [Dulcolax Supp] 1 supp [place] Q3D PRN 02/26/18 02/26/18 Carbamide Peroxide Otic Drop 5 drops EACHEAR DAILY PRN 02/26/18 02/26/18 [Debrox Otic Drops] Clotrimazole [Clotrimazole 3] 1 applic TOP QPM 02/26/18 02/26/18 Loperamide HCl [Anti-Diarrheal] 2 mg PO DAILY PRN 02/26/18 02/26/18 Mag Hydrox/Al Hydrox/Simeth 20 ml PO DAILY PRN 02/26/18 02/26/18 [Antacid Suspension] Pedi Multivit 158/Iron/Vit K1 1 tab PO DAILY 02/26/18 02/26/18 [Cerovite Jr Tablet Chew] - Allergies Allergies/Adverse Reactions: Allergies Allergy/AdvReac Type Severity Reaction Status Date / Time codeine Allergy Edema Verified 03/14/18 14:45 - Social History Does the pt smoke?: No Smoking Status: Never smoker Does the pt drink ETOH?: No Does the pt have substance abuse?: No - Immunizations Immunizations are current?: Yes - POLST Patient has POLST: No POLST Status: DNR (She does not want to be kept alive if she has cardiac or pulmonary arrest. She does not have a POLST form yet but son and she will sit down and fill one out with me.) PD ED PE NORMAL - Vitals Vital signs reviewed: Yes (normal) - General General: Alert and oriented X 3, Well developed/nourished - HEENT HEENT: PERRL, EOMI, Other (There is ecchymosis on the right side of the forehead , without break in the integument or bony step-off palpated. There is superficial abrasion at the nasal bridge, with associated tenderness to palpation of the nose. No septal hematoma. There is swelling of the right maxillary aspect of her cheek, with hematoma noted. Teeth are intact, and there is no mandibular tenderness to palpation.) - Neck Neck: No adenopathy, No JVD, Other (There is tenderness to palpation of the mid cervical spine.) - Cardiac Cardiac: RRR - Respiratory Respiratory: No respiratory distress, Clear bilaterally, Other (No chest wall tenderness to palpation.) - Abdomen Abdomen: Soft, Non tender - Back Back: No CVA TTP, No spinal TTP - Derm Derm: No rash - Extremities Extremities: No calf tenderness / cord, Other (2+ pedal edema bilaterally.) - Neuro Neuro: Alert and oriented X 3, No motor deficit, No sensory deficit, Normal speech Eye Opening: Spontaneous Motor: Obeys Commands Verbal: Oriented GCS Score: 15 Results - Vitals Vitals: Vital Signs - 24 hr 03/14/18 03/14/18 03/14/18 14:33 14:44 16:44 Temperature 36.4 C L Heart Rate 79 78 85 Respiratory 14 14 14 Rate Blood Pressure 140/67 H 133/65 H O2 Saturation 95 91 L 100 03/14/18 03/14/18 18:00 18:31 Temperature Heart Rate 78 76 Respiratory 14 11 L Rate Blood Pressure 142/79 H 133/55 H O2 Saturation 98 98 Oxygen O2 Source Room air - Labs Labs: Laboratory Tests 03/14/18 03/14/18 03/14/18 15:05 15:05 15:37 WBC 10.2 RBC 3.57 L Hgb 11.9 L Hct 34.9 L MCV 97.7 MCH 33.4 H MCHC 34.2 RDW 13.5 Plt Count 205 MPV 8.3 Neut # (Auto) 7.2 H Lymph # (Auto) 1.7 [place] # (Auto) 1.1 H Eos # (Auto) 0.1 Baso # (Auto) 0.1 Absolute Nucleated RBC 0.00 Nucleated RBC % 0.0 PT 12.8 H INR 1.1 Sodium 133 L Potassium 4.1 Chloride 99 L Carbon Dioxide 25 Anion Gap 9.0 BUN 17 Creatinine 1.0 Estimated GFR (MDRD) 53 L Glucose 112 H Calcium 8.9 Total Bilirubin 0.9 AST 20 ALT 10 Alkaline Phosphatase 89 Total Protein 7.4 Albumin 3.6 Globulin 3.8 Albumin/Globulin Ratio 0.9 L Lipase 32 Urine Color Urine Clarity Urine pH Ur Specific [place] Urine Protein Urine Glucose (UA) Urine Ketones Urine Occult Blood Urine Nitrite Urine Bilirubin Urine Urobilinogen Ur Leukocyte Esterase Urine RBC Urine WBC Ur Squamous Epith Cells Urine Bacteria Ur Microscopic Review Urine Culture Comments 03/14/18 16:05 WBC RBC Hgb Hct MCV MCH MCHC RDW Plt Count MPV Neut # (Auto) Lymph # (Auto) [place] # (Auto) Eos # (Auto) Baso # (Auto) Absolute Nucleated RBC Nucleated RBC % PT INR Sodium Potassium Chloride Carbon Dioxide Anion Gap BUN Creatinine Estimated GFR (MDRD) Glucose Calcium Total Bilirubin AST ALT Alkaline Phosphatase Total Protein Albumin Globulin Albumin/Globulin Ratio Lipase Urine Color YELLOW Urine Clarity HAZY Urine pH 6.0 Ur Specific [place] 1.010 Urine Protein NEGATIVE Urine Glucose (UA) NEGATIVE Urine Ketones NEGATIVE Urine Occult Blood NEGATIVE Urine Nitrite NEGATIVE Urine Bilirubin NEGATIVE Urine Urobilinogen 0.2 (NORMAL) Ur Leukocyte Esterase SMALL H Urine RBC 0-5 Urine WBC >25 H Ur Squamous Epith Cells MANY Squamous H Urine Bacteria Many H Ur Microscopic Review INDICATED Urine Culture Comments NOT INDICATED - Rads (name of study) Head CT Radiology: Prelim report reviewed, EMP read contemporaneously, See rad report (Mixed density subdural fluid collection overlying the right frontal and parietal lobes, likely representing a subdural hematoma with acute and chronic blood products. Leftward midline shift of approximately 2 mm. No acute intraparenchymal hemorrhage. No evidence of epidural hematoma or subarachnoid blood.) Facial bone CT Radiology: Prelim report reviewed, EMP read contemporaneously, See rad report (1) Acute comminuted nasal bone fracture with mild depression at the anterior aspect with adjacent soft tissue swelling and soft tissue gas. 2) Acute right anterior maxillary wall fractures with acute right orbital floor fracture, mildly displaced. 3) Small amount of fluid in the right mastoid air cells. 4) Minimal bilateral maxillary sinus mucosal thickening. Mild bilateral ethmoid sinus mucosal thickening. 5) Right cheek subcutaneous soft tissue fluid collection, suspect liquefying hematoma, measures 2.7 x 1.6 cm.) Cervical spine CT Radiology: Prelim report reviewed, EMP read contemporaneously, See rad report (Osteopenia. No acute fracture or malalignment of the cervical spine visualized.) Right shoulder xray Radiology: Prelim report reviewed, EMP read contemporaneously, See rad report (Mild right shoulder DJD changes are seen. No acute findings.) PD MEDICAL DECISION MAKING - ED course Complexity details: reviewed old records, reviewed results, re-evaluated patient, considered differential, d/w patient, d/w system consultant ED course: The patient's presentation is significant for acute on chronic subdural hemorrhage. CT scan of the facial bones also reveals nasal bone fracture and right orbital floor fracture. Cervical spine x-rays reveal osteopenia, without acute findings. X-rays of the right shoulder reveal DJD, with no acute bony abnormality detected. Urinalysis is positive for pyuria and bacteriuria, consistent with urinary tract infection. The patient does not appear septic. Treatment in the emergency department included administration of normal saline 1 L IV, and Macrobid 100 mg orally. I discussed her condition with Dr. Richter, and neurosurgeon at [facility], and she will accept the patient in transfer. She is being transferred by ALS ambulance. Transfer forms were completed. Departure - Departure Disposition: 02 Transfer Acute Care Hosp Clinical Impression: Orbital floor (blow-out) closed fracture Traumatic subdural hemorrhage Qualifiers: Encounter type: initial encounter Loss of consciousness presence/duration: with LOC of unspecified duration Qualified Code(s): S06.5X9A - Traumatic subdural hemorrhage with loss of consciousness of unspecified duration, initial encounter Nasal bone fracture Qualifiers: Encounter type: initial encounter Fracture type: closed Qualified Code(s): S02.2XXA - Fracture of nasal bones, initial encounter for closed fracture UTI (urinary tract infection) Qualifiers: Urinary tract infection type: acute cystitis Hematuria presence: without hematuria Qualified Code(s): N30.00 - Acute cystitis without hematuria Condition: Fair
[2018-03-14 15:15] LABS: BASOPHILS # (AUTO) 0.1 10^3/uL (0.0-0.1); EOSINOPHILS # (AUTO) 0.1 10^3/uL (0.0-0.7); EOSINOPHILS % (AUTO) 0.7 %; HGB - HEMOGLOBIN 11.9 g/dL (12.0-16.0); LYMPHOCYTES # (AUTO) 1.7 10^3/uL (1.5-3.5); LYMPHOCYTES % (AUTO) 16.5 %; MEAN CORPUSCULAR HEMOGLOBIN 33.4 pg (27.0-31.0); MEAN CORPUSCULAR HGB CONC 34.2 g/dL (32.0-36.0); MEAN CORPUSCULAR VOLUME 97.7 fL (81.0-99.0); MEAN PLATELET VOLUME 8.3 fL (7.9-10.8); MONOCYTES # (AUTO) 1.1 10^3/uL (0.0-1.0); MONOCYTES % (AUTO) 10.8 %; NEUTROPHILS # (AUTO) 7.2 10^3/uL (1.5-6.6); PLT - PLATELET COUNT 205 10^3/uL (130-450); RED BLOOD COUNT 3.57 10^6/uL (4.20-5.40); RED CELL DISTRIBUTION WIDTH 13.5 % (12.0-15.0); WHITE BLOOD COUNT 10.2 x10^3/uL (4.8-10.8)
[2018-03-14 15:30] LABS: ALBUMIN 3.6 g/dL (3.2-5.5); ALBUMIN/GLOBULIN RATIO 0.9 (1.0-2.2); BILIRUBIN,TOTAL 0.9 mg/dL (0.2-1.0); CALCIUM 8.9 mg/dL (8.5-10.3); TOTAL PROTEIN 7.4 g/dL (6.7-8.2)
[2018-03-14 15:50] LABS: INR 1.1 (0.8-1.2); PT - PROTHROMBIN TIME 12.8 secs (9.9-12.6)
--- NOTE | 2018-03-14 16:33 | CT Report ---
Reason: Fall with head injury Procedure Date: 03/14/2018 Accession Number: [id number] / [id number] Procedure: CT - Head W/O CPT Code: FULL RESULT: EXAM: CT HEAD EXAM DATE: 03/14/2018 03:27 PM. CLINICAL HISTORY: Fall with head injury. COMPARISON: CT head 02/15/2018. TECHNIQUE: Multiaxial CT images were obtained from the foramen magnum to the vertex. Reformats: Sagittal and coronal. IV contrast: None. In accordance with CT protocol optimization, one or more of the following dose reduction techniques were utilized for this exam: automated exposure control, adjustment of mA and/or KV based on patient size, or use of iterative reconstructive technique. FINDINGS: Parenchyma: No acute intraparenchymal hemorrhage. There is approximately 2 mm of leftward midline shift. Again seen is focal encephalization involving the right frontal and left parieto-occipital lobes from prior infarct or trauma. Hypodense changes to the periventricular white matter likely related to chronic small vessel ischemic disease. Extraaxial Spaces: There is a mixed density, primarily hypodense, subdural fluid collection overlying the right frontal and parietal lobes, which measures up to 12 mm in thickness. There are streaky hyperdense foci within this fluid collection, which may represent acute blood products. No evidence of epidural hematoma or subarachnoid blood. Ventricles: Ex vacuo dilation of the lateral ventricles. Sinuses and Orbits: Mucosal thickening in the ethmoid air cells. Trace fluid in the right mastoid air cells. Bones: No acute fracture or calvarial defect. Other: There is a focal frontal scalp hematoma measuring 0.8 x 4.2 cm. No radiopaque foreign body. IMPRESSION: Mixed density subdural fluid collection overlying the right frontal and parietal lobes, likely representing a subdural hematoma with acute and chronic blood products. Leftward midline shift of approximately 2 mm. No acute intraparenchymal hemorrhage. No evidence of epidural hematoma or subarachnoid blood. Chronic changes detailed above. [facility] The call report notification system was initiated by Dr. Mariusz Rizo at 04:25 PM hrs on 03/14/2018. The above findings were discussed with Randall Duarte by Dr. Mariusz Rizo at 04:31 PM hrs on 03/14/2018.
[2018-03-14 16:35] LABS: BILIRUBIN,URINE NEGATIVE (NEGATIVE); GLUCOSE, URINE (UA) NEGATIVE (NEGATIVE); KETONES,URINE (UA) NEGATIVE (NEGATIVE); LEUKOCYTE ESTERASE, URINE SMALL (NEGATIVE); NITRITE,URINE NEGATIVE (NEGATIVE); OCCULT BLOOD,URINE NEGATIVE (NEGATIVE); PROTEIN,URINE NEGATIVE (NEGATIVE); UROBILINOGEN,URINE 0.2 (NORMAL) E.U./dL (NORMAL)
--- NOTE | 2018-03-14 16:37 | CT Report ---
Reason: Fall with head and facial injuries. Procedure Date: 03/14/2018 Accession Number: [id number] / [id number] Procedure: CT - Cervical Spine W/O CPT Code: FULL RESULT: EXAM: CT CERVICAL SPINE WITHOUT CONTRAST DATE: 03/14/2018 03:40 PM. HISTORY: Fall with head and facial injuries. COMPARISONS: CERVICAL SPINE W/O 02/15/2018 11:41 AM. TECHNIQUE: Thin-section axial images were acquired of the cervical spine without contrast. Post-processing: Coronal and sagittal reformats. Other: None. In accordance with CT protocol optimization, one or more of the following dose reduction techniques were utilized for this exam: automated exposure control, adjustment of mA and/or KV based on patient size, or use of iterative reconstructive technique. FINDINGS: Alignment: The patient's head and neck are tilted to the right. Bones/discs: The bones are osteopenic. No acute fracture, subluxation, or compression deformity visualized. The craniocervical junction is intact. Facet joint alignment is normal. Degenerative disc disease C3-C4 and C4-C5. Mild multilevel degenerative facet arthropathy. Musculature: Unremarkable. Other: The paravertebral and prevertebral soft tissues are unremarkable. The lung apices are clear. Small amount of nonspecific fluid in the right mastoid air cells. IMPRESSION: Osteopenia. No acute fracture or malalignment of the cervical spine visualized. RADIA
[2018-03-14 16:42] LABS: CLARITY,URINE HAZY (CLEAR)
--- NOTE | 2018-03-14 16:50 | XRAY Report ---
Reason: Fall, with right shoulder pain Procedure Date: 03/14/2018 Accession Number: [id number] / [id number] Procedure: XR - Shoulder 3 View RT CPT Code: FULL RESULT: EXAM: RIGHT SHOULDER RADIOGRAPHY EXAM DATE: 03/14/2018 04:40 PM. CLINICAL HISTORY: Right shoulder pain. COMPARISON: SHOULDER 3 VIEW RT 02/15/2018 11:55 AM. TECHNIQUE: 3 views. FINDINGS: Bones: Normal. No fracture or bone lesion. Joints: Minor glenohumeral and mild acromioclavicular DJD changes are seen. Alignment is preserved. Soft tissues: The visualized hemithorax is unremarkable. No soft tissue swelling. IMPRESSION: Mild right shoulder DJD changes are seen. No acute findings. RADIA
[2018-03-14 16:52] LABS: BACTERIA,URINE Many /HPF (None Seen); RBC,URINE 0-5 /HPF (0-5); SQUAMOUS EPITHELIAL CELL,UR MANY Squamous (<= Few)
--- NOTE | 2018-03-14 17:02 | CT Report ---
Reason: Right facial injury from falling. Procedure Date: 03/14/2018 Accession Number: [id number] / [id number] Procedure: CT - Facial Bones W/O CPT Code: FULL RESULT: EXAM: CT MAXILLOFACIAL WITHOUT CONTRAST EXAM DATE: 03/14/2018 03:40 PM. CLINICAL HISTORY: Right facial injury from falling. COMPARISONS: CERVICAL SPINE W/O 02/15/2018 11:41 AM HEAD W/O 03/14/2018 3:27 PM. TECHNIQUE: Thin-section axial images were acquired of the face without contrast. Post-processing: Coronal and sagittal reformats. Other: None. In accordance with CT protocol optimization, one or more of the following dose reduction techniques were utilized for this exam: automated exposure control, adjustment of mA and/or KV based on patient size, or use of iterative reconstructive technique. FINDINGS: Acute comminuted nasal bone fracture with mild depression at the anterior aspect with adjacent soft tissue swelling and soft tissue gas. Acute right anterior maxillary wall fractures with a mild depression. The fracture extends to the right orbital floor. The right orbital floor fracture is mildly displaced at the more posterior aspect. Minimal bilateral maxillary sinus mucosal thickening. Mild bilateral ethmoid sinus mucosal thickening. Small amount of fluid in the right mastoid air cells. Left mastoid air cells appear clear. Right cheek subcutaneous soft tissue fluid collection, suspect liquefying hematoma, measures 2.7 x 1.6 cm. See the separate head CT report from the same date. Normal alignment of the bilateral temporomandibular joints. IMPRESSION: 1. Acute comminuted nasal bone fracture with mild depression at the anterior aspect with adjacent soft tissue swelling and soft tissue gas. 2. Acute right anterior maxillary wall fractures and acute right orbital floor fracture, mildly displaced. 3. Small amount of fluid in the right mastoid air cells. 4. Minimal bilateral maxillary sinus mucosal thickening. Mild bilateral ethmoid sinus mucosal thickening. 5. Right cheek subcutaneous soft tissue fluid collection, suspect liquefying hematoma, measures 2.7 x 1.6 cm. See the separate head CT report from the same date. 6. See above. RADIA
[2018-03-14] MEDS ORDERED: NITROFURANTOIN MACRO 100 MG CAPSULE PO STA (17:19)
[2018-03-14 19:31] VITALS: BP 121/52
[2018-03-14] MEDS ORDERED: fentaNYL 100 MCG/2 ML VIAL IVP STA (19:47)
== END 2018-03-14 19:50 | disposition short-term general hospital (02) ==
LOC: EDUNIT# → ED 14:31
DX: S02.31XA Fracture of orbital floor, right side, initial encounter for closed fracture (principal); S06.5X9A Traumatic subdural hemorrhage with loss of consciousness of unspecified duration, initial encounter; S02.2XXA Fracture of nasal bones, initial encounter for closed fracture; W18.30XA Fall on same level, unspecified, initial encounter; Y93.01 Activity, walking, marching and hiking; I10 Essential (primary) hypertension; N30.00 Acute cystitis without hematuria; E11.42 Type 2 diabetes mellitus with diabetic polyneuropathy; Z86.73 Personal history of transient ischemic attack (TIA), and cerebral infarction without residual deficits; Z79.01 Long term (current) use of anticoagulants; Z95.0 Presence of cardiac pacemaker; Z96.649 Presence of unspecified artificial hip joint
CPT/HCPCS: 36415; 70450; 70486; 72125; 73030; 80053; 81001; 83690; 85025; 85610; 96374; 99284; 99285; A9270; 81003; 87070; 87086; 87205; 89051

== ENCOUNTER 2018-04-01 12:12 | Outpatient (CLI) | payer MEDICARE | END 2018-04-01 12:13 | disposition critical access hospital (66) | LOC: EMS 12:12 | PROVIDERS: ATTEND Surgery | DX: M79.604 Pain in right leg (principal) | CPT/HCPCS: A0425; A0429 ==

== ENCOUNTER 2018-04-01 12:37 | Emergency (ER) | payer MEDICARE ==
--- NOTE | 2018-04-01 13:24 | ED Physician Documentation ---
History of Present Illness - Stated complaint Stated Complaint: POSS BLOOD CLOT - Chief complaint Chief Complaint: General - History obtained from History obtained from: Patient, EMS - History of Present Illness Timing: Other (This is an 83-year-old woman with dementia who presents from an assisted living facility with concerns for DVT. She was on warfarin which was stopped about a month ago I think after a fall. The visiting nurse noted pedal edema, right greater than left with right leg pain with foot dorsiflexion today and referred her here for a DVT evaluation. She notes no chest pain or trouble breathing. She also notes that she recently fell and injured her shoulder. 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: Other : Incontinence HEENT: Chronic sinusitis Psych: Depression Musculoskeletal: Osteoarthritis Derm: None - Past Surgical History Past Surgical History: Yes Ortho: Hip replacement /QUARTER SECTION IRONER: section Cardiovascular: Pacemaker - Present Medications Home Medications: Ambulatory Orders Medication Instructions Recorded Confirmed Atenolol 25 mg PO QPM 02/15/18 02/26/18 Atorvastatin Calcium 40 mg PO QPM 02/15/18 02/26/18 Calcium Citrate/Vitamin D3 1 tab PO DAILY 02/15/18 02/26/18 [Calcium Citrate-Vit D3 Tablet] Cyanocobalamin (Vitamin B-12) 1,000 mcg PO DAILY 02/15/18 02/26/18 [Vitamin B-12 (500 mcg sublingual)] Docusate Sodium [Dss] 250 mg PO DAILY 02/15/18 02/26/18 Famotidine 40 mg PO BID 02/15/18 02/26/18 Fluticasone [Flonase] 2 sprays CASSANDRA DAILY 02/15/18 02/26/18 Furosemide 20 mg PO Q2D 02/15/18 02/26/18 Lisinopril 10 mg PO DAILY 02/15/18 02/26/18 QUEtiapine [SEROquel] 12.5 mg PO BID 02/15/18 02/26/18 Sennosides [Senna] 8.6 mg PO BID 02/15/18 02/26/18 Sertraline HCl 25 mg PO DAILY 02/15/18 02/26/18 Acetaminophen [Tylenol] 650 mg PO Q4HR PRN tablet 02/16/18 02/26/18 Warfarin Sodium 0.5 mg PO MOTUTH@1700 #0 02/16/18 02/26/18 Warfarin Sodium 1 mg PO SUWESA@1700 #0 02/16/18 02/26/18 Warfarin Sodium 5 mg PO DAILY@1700 #0 02/16/18 02/26/18 Bisacodyl Supp [Dulcolax Supp] 1 supp TN Q3D PRN 02/26/18 02/26/18 Carbamide Peroxide Otic Drop 5 drops EACHEAR DAILY PRN 02/26/18 02/26/18 [Debrox Otic Drops] Clotrimazole [Clotrimazole 3] 1 applic TOP QPM 02/26/18 02/26/18 Loperamide HCl [Anti-Diarrheal] 2 mg PO DAILY PRN 02/26/18 02/26/18 Mag Hydrox/Al Hydrox/Simeth 20 ml PO DAILY PRN 02/26/18 02/26/18 [Antacid Suspension] Pedi Multivit 158/Iron/Vit K1 1 tab PO DAILY 02/26/18 02/26/18 [Cerovite Jr Tablet Chew] - Allergies Allergies/Adverse Reactions: Allergies Allergy/AdvReac Type Severity Reaction Status Date / Time codeine Allergy Edema Verified 03/14/18 14:45 - Social History Does the pt smoke?: No Smoking Status: Never smoker Does the pt drink ETOH?: No Does the pt have substance abuse?: No - Immunizations Immunizations are current?: Yes - POLST Patient has POLST: No POLST Status: DNR (She does not want to be kept alive if she has cardiac or pulmonary arrest. She does not have a POLST form yet but son and she will sit down and fill one out with me.) PD ED PE NORMAL - Vitals Vital signs reviewed: Yes - General General: Other (She is alert and oriented to person and place but not very well to situation or time) - HEENT HEENT: PERRL, EOMI - Extremities Extremities: Other (She has bilateral pitting pedal edema, 2+ without overt leg tenderness or redness.) - Psych Psych: Normal mood, Normal affect Results - Vitals Vitals: Vital Signs - 24 hr 04/01/18 12:39 Temperature 36.7 C Heart Rate 64 Respiratory 16 Rate Blood Pressure 134/72 H O2 Saturation 97 Oxygen O2 Source Room air - Labs Labs: Laboratory Tests 04/01/18 04/01/18 13:24 13:24 WBC 7.2 RBC 3.53 L Hgb 11.6 L Hct 35.3 L MCV 100.0 H MCH 32.7 H MCHC 32.7 RDW 13.9 Plt Count 236 MPV 7.8 L Neut # (Auto) 3.8 Lymph # (Auto) 2.5 [place] # (Auto) 0.6 Eos # (Auto) 0.2 Baso # (Auto) 0.1 Absolute Nucleated RBC 0.00 Nucleated RBC % 0.0 Sodium 137 Potassium 3.6 Chloride 100 L Carbon Dioxide 29 Anion Gap 8.0 BUN 18 Creatinine 1.0 Estimated GFR (MDRD) 53 L Glucose 119 H Calcium 8.7 Total Bilirubin 0.4 AST 16 ALT 11 Alkaline Phosphatase 88 Total Protein 6.6 L Albumin 3.3 Globulin 3.3 Albumin/Globulin Ratio 1.0 Lipase 36 - Rads (name of study) BLE DVt sono Radiology: EMP read contemporaneously (no dvt) Departure - Departure Disposition: 01 Home, Self Care Clinical Impression: Leg swelling Dementia Qualifiers: Dementia type: unspecified type Dementia behavioral disturbance: without behavioral disturbance Qualified Code(s): F03.90 - Unspecified dementia without behavioral disturbance Condition: Good Record reviewed to determine appropriate education?: Yes Comments: She should follow-up with her doctor in a week for recheck. Return for new or worsening symptoms. Your blood pressure was elevated today on check into the emergency department. This does not mean that you have hypertension, it is a common phenomenon to come to the emergency department and have elevated blood pressure. I recommend that you see your primary care physician within the week to have it rechecked when you are feeling better.
[2018-04-01 13:35] LABS: BASOPHILS # (AUTO) 0.1 10^3/uL (0.0-0.1); BASOPHILS % (AUTO) 1.2 %; EOSINOPHILS # (AUTO) 0.2 10^3/uL (0.0-0.7); EOSINOPHILS % (AUTO) 2.5 %; HGB - HEMOGLOBIN 11.6 g/dL (12.0-16.0); LYMPHOCYTES # (AUTO) 2.5 10^3/uL (1.5-3.5); LYMPHOCYTES % (AUTO) 35.4 %; MEAN CORPUSCULAR HEMOGLOBIN 32.7 pg (27.0-31.0); MEAN CORPUSCULAR HGB CONC 32.7 g/dL (32.0-36.0); MEAN PLATELET VOLUME 7.8 fL (7.9-10.8); MONOCYTES # (AUTO) 0.6 10^3/uL (0.0-1.0); MONOCYTES % (AUTO) 8.6 %; NEUTROPHILS # (AUTO) 3.8 10^3/uL (1.5-6.6); NEUTROPHILS % (AUTO) 52.3 %; PLT - PLATELET COUNT 236 10^3/uL (130-450); RED BLOOD COUNT 3.53 10^6/uL (4.20-5.40); RED CELL DISTRIBUTION WIDTH 13.9 % (12.0-15.0); WHITE BLOOD COUNT 7.2 x10^3/uL (4.8-10.8)
[2018-04-01 13:49] LABS: ALBUMIN 3.3 g/dL (3.2-5.5); BILIRUBIN,TOTAL 0.4 mg/dL (0.2-1.0); CALCIUM 8.7 mg/dL (8.5-10.3); TOTAL PROTEIN 6.6 g/dL (6.7-8.2)
--- NOTE | 2018-04-01 15:13 | Ultrasound Report ---
Reason: B leg swelling Procedure Date: 04/01/2018 Accession Number: [id number] / [id number] Procedure: US - Duplex Ext Veins Bilateral CPT Code: FULL RESULT: EXAM: BILATERAL LOWER EXTREMITY VENOUS ULTRASOUND. EXAM DATE: 04/01/2018 03:00 PM. CLINICAL HISTORY: Bilateral leg swelling. COMPARISON: None. TECHNIQUE: Real-time sonographic vascular imaging was performed by the placer miner through the lower extremities utilizing both color-flow and Doppler spectral analysis. Multiple senior sales representative static images were saved for review. FINDINGS: Right: Common Femoral Vein (CFV): Normal. CFV-GSV Junction: Normal. Profunda Femoral Vein (PFV): Normal. Femoral Vein (FV) Prox: Normal. Femoral Vein (FV) Mid: Normal. Femoral Vein (FV) Dist: Normal. Popliteal Vein: Normal. Posterior Tibial Veins: Suboptimal visualization. Peroneal Veins: Suboptimal visualization. Left: Common Femoral Vein (CFV): Normal. CFV-GSV Junction: Normal. Profunda Femoral Vein (PFV): Normal. Femoral Vein (FV) Prox: Normal. Femoral Vein (FV) Mid: Normal. Femoral Vein (FV) Dist: Normal. Popliteal Vein: Normal. Posterior Tibial Veins: Suboptimal visualization. Peroneal Veins: Suboptimal visualization. Other: In the right popliteal fossa is a 3.5 x 1.5 x 2.1 cm anechoic collection, possibly [place] cyst. IMPRESSION: No evidence for deep venous thrombosis bilaterally. Limited visualization of calf veins. RADIA The call report notification system was initiated by Dr. Souleymane Skaggs at 03:12 PM on 04/01/2018. The above call report findings were discussed with Milton Martinez by Dr. Souleymane Skaggs at 03:18 PM on 04/01/2018.
[2018-04-01 15:35] VITALS: BP 152/73
== END 2018-04-01 16:38 | disposition home or self-care (01) ==
LOC: EDUNIT# → ED 12:37
DX: R60.0 Localized edema (principal); M79.604 Pain in right leg; F03.90 Unspecified dementia, unspecified severity, without behavioral disturbance, psychotic disturbance, mood disturbance, and anxiety; I10 Essential (primary) hypertension; E11.42 Type 2 diabetes mellitus with diabetic polyneuropathy; Z86.73 Personal history of transient ischemic attack (TIA), and cerebral infarction without residual deficits
CPT/HCPCS: 36415; 80053; 83690; 85025; 93970; 99283

== ENCOUNTER 2018-04-17 11:02 | Outpatient (CLI) | payer MEDICARE | END 2018-04-17 11:03 | disposition critical access hospital (66) | LOC: EMS 11:02 | PROVIDERS: ATTEND Surgery | DX: R46.89 Other symptoms and signs involving appearance and behavior (principal) | CPT/HCPCS: A0425; A0429 ==

== ENCOUNTER 2018-04-17 11:29 | Emergency (ER) | payer MEDICARE ==
[2018-04-17 11:38] VITALS: BP 134/59
--- NOTE | 2018-04-17 12:43 | ED Physician Documentation ---
History of Present Illness - Stated complaint Stated Complaint: PANICK ATTACK - Chief complaint Chief Complaint: General - History obtained from History obtained from: Patient - History of Present Illness Timing: Today (83-year-old woman who is a resident of [facility]. She was upset about the deterioration of a friend of hers and she says she is very congregational and started speaking in the "heavenly language." It sounds like maybe they thought she was having a stroke or a panic attack and brought her in by ambulance. 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: Other : Incontinence HEENT: Chronic sinusitis Psych: Depression Musculoskeletal: Osteoarthritis Derm: None - Past Surgical History Past Surgical History: Yes Ortho: Hip replacement /INTERNATIONAL MARKETING COORDINATOR: section Cardiovascular: Pacemaker - Present Medications Home Medications: Ambulatory Orders Medication Instructions Recorded Confirmed Atenolol 25 mg PO QPM 02/15/18 04/01/18 Atorvastatin Calcium 40 mg PO QPM 02/15/18 04/01/18 Calcium Citrate/Vitamin D3 1 tab PO DAILY 02/15/18 04/01/18 [Calcium Citrate-Vit D3 Tablet] Cyanocobalamin (Vitamin B-12) 1,000 mcg PO DAILY 02/15/18 04/01/18 [Vitamin B-12 (500 mcg sublingual)] Docusate Sodium [Dss] 250 mg PO DAILY 02/15/18 04/01/18 Famotidine 40 mg PO BID 02/15/18 04/01/18 Fluticasone [Flonase] 2 sprays CASSANDRA DAILY 02/15/18 04/01/18 Furosemide 20 mg PO Q2D 02/15/18 04/01/18 Lisinopril 10 mg PO DAILY 02/15/18 04/01/18 QUEtiapine [SEROquel] 12.5 mg PO BID 02/15/18 04/01/18 Sennosides [Senna] 8.6 mg PO BID 02/15/18 04/01/18 Sertraline HCl 25 mg PO DAILY 02/15/18 04/01/18 Acetaminophen [Tylenol] 650 mg PO Q4HR PRN tablet 02/16/18 04/01/18 Bisacodyl Supp [Dulcolax Supp] 1 supp [place] Q3D PRN 02/26/18 04/01/18 Carbamide Peroxide Otic Drop 5 drops EACHEAR DAILY PRN 02/26/18 04/01/18 [Debrox Otic Drops] Clotrimazole [Clotrimazole 3] 1 applic TOP QPM 02/26/18 04/01/18 Loperamide HCl [Anti-Diarrheal] 2 mg PO DAILY PRN 02/26/18 04/01/18 Mag Hydrox/Al Hydrox/Simeth 20 ml PO DAILY PRN 02/26/18 04/01/18 [Antacid Suspension] Pedi Multivit 158/Iron/Vit K1 1 tab PO DAILY 02/26/18 04/01/18 [Cerovite Jr Tablet Chew] Triamcinolone 0.1% Cream [Kenalog 1 applic PO QID 04/01/18 04/01/18 0.1% Cream] - Allergies Allergies/Adverse Reactions: Allergies Allergy/AdvReac Type Severity Reaction Status Date / Time codeine Allergy Edema Verified 04/17/18 11:38 - Social History Does the pt smoke?: No Smoking Status: Never smoker Does the pt drink ETOH?: No Does the pt have substance abuse?: No - Immunizations Immunizations are current?: Yes - POLST Patient has POLST: No POLST Status: DNR (She does not want to be kept alive if she has cardiac or pulmonary arrest. She does not have a POLST form yet but son and she will sit down and fill one out with me.) PD ED PE NORMAL - Vitals Vital signs reviewed: Yes - General General: Other (She is alert and oriented to person and place but not date. 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 She has no specific complaints now. Departure - Departure Disposition: 01 Home, Self Care Clinical Impression: Dementia Qualifiers: Dementia type: unspecified type Dementia behavioral disturbance: without behavioral disturbance Qualified Code(s): F03.90 - Unspecified dementia without behavioral disturbance Condition: Stable Record reviewed to determine appropriate education?: Yes Instructions: ED Dementia Caregiver Support Comments: Return for new or concerning symptoms. Your blood pressure was elevated today on check into the emergency department. This does not mean that you have hypertension, it is a common phenomenon to come to the emergency department and have elevated blood pressure. I recommend that you see your primary care physician within the week to have it rechecked when you are feeling better.
== END 2018-04-17 13:35 | disposition home or self-care (01) ==
LOC: EDUNIT# → ED 11:29
DX: F03.90 Unspecified dementia, unspecified severity, without behavioral disturbance, psychotic disturbance, mood disturbance, and anxiety (principal); I10 Essential (primary) hypertension; E11.42 Type 2 diabetes mellitus with diabetic polyneuropathy; Z86.73 Personal history of transient ischemic attack (TIA), and cerebral infarction without residual deficits; Z95.0 Presence of cardiac pacemaker; Z96.649 Presence of unspecified artificial hip joint
CPT/HCPCS: 99283; 99284

== ENCOUNTER 2018-05-01 11:31 | Outpatient (CLI) | payer MEDICARE | END 2018-05-01 11:32 | disposition critical access hospital (66) | LOC: EMS 11:31 | PROVIDERS: ATTEND Surgery | DX: R41.82 Altered mental status, unspecified (principal); R05 Cough | CPT/HCPCS: A0425; A0429 ==

== ENCOUNTER 2018-05-01 11:59 | Emergency (ER) | payer MEDICARE ==
[2018-05-01 13:49] LABS: BASOPHILS # (AUTO) 0.1 10^3/uL (0.0-0.1); BASOPHILS % (AUTO) 1.1 %; LYMPHOCYTES # (AUTO) 1.3 10^3/uL (1.5-3.5); LYMPHOCYTES % (AUTO) 24.4 %; MEAN CORPUSCULAR HEMOGLOBIN 32.5 pg (27.0-31.0); MEAN CORPUSCULAR HGB CONC 33.6 g/dL (32.0-36.0); MEAN CORPUSCULAR VOLUME 96.6 fL (81.0-99.0); MEAN PLATELET VOLUME 8.4 fL (7.9-10.8); MONOCYTES # (AUTO) 0.9 10^3/uL (0.0-1.0); MONOCYTES % (AUTO) 17.8 %; NEUTROPHILS % (AUTO) 56.7 %; PLT - PLATELET COUNT 165 10^3/uL (130-450); RED BLOOD COUNT 3.71 10^6/uL (4.20-5.40); RED CELL DISTRIBUTION WIDTH 13.7 % (12.0-15.0); WHITE BLOOD COUNT 5.3 x10^3/uL (4.8-10.8)
[2018-05-01 14:05] LABS: ALBUMIN 3.3 g/dL (3.2-5.5); BILIRUBIN,TOTAL 0.6 mg/dL (0.2-1.0); CALCIUM 8.1 mg/dL (8.5-10.3); TOTAL PROTEIN 6.7 g/dL (6.7-8.2)
[2018-05-01] MEDS ORDERED: SODIUM CHLORIDE 0.9% 500 ML IV ONE (14:17)
--- NOTE | 2018-05-01 14:30 | ED Physician Documentation ---
History of Present Illness - Stated complaint Stated Complaint: COUGH - Chief complaint Chief Complaint: General - Additonal information Additional information: 83-year-old female who resides at a nursing facility was sent in for weakness and cough which started today. No reports of respiratory distress. The patient does have dementia and the history is limited. But on examination the patient has no significant complaints is resting comfortably. 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: Other : Incontinence HEENT: Chronic sinusitis Psych: Depression Musculoskeletal: Osteoarthritis Derm: None - Past Surgical History Past Surgical History: Yes Ortho: Hip replacement /PEER EDUCATOR: section Cardiovascular: Pacemaker - Present Medications Home Medications: Ambulatory Orders Medication Instructions Recorded Confirmed Atenolol 25 mg PO QPM 02/15/18 04/01/18 Atorvastatin Calcium 40 mg PO QPM 02/15/18 04/01/18 Calcium Citrate/Vitamin D3 1 tab PO DAILY 02/15/18 04/01/18 [Calcium Citrate-Vit D3 Tablet] Cyanocobalamin (Vitamin B-12) 1,000 mcg PO DAILY 02/15/18 04/01/18 [Vitamin B-12 (500 mcg sublingual)] Docusate Sodium [Dss] 250 mg PO DAILY 02/15/18 04/01/18 Famotidine 40 mg PO BID 02/15/18 04/01/18 Fluticasone [Flonase] 2 sprays CASSANDRA DAILY 02/15/18 04/01/18 Furosemide 20 mg PO Q2D 02/15/18 04/01/18 Lisinopril 10 mg PO DAILY 02/15/18 04/01/18 QUEtiapine [SEROquel] 12.5 mg PO BID 02/15/18 04/01/18 Sennosides [Senna] 8.6 mg PO BID 02/15/18 04/01/18 Sertraline HCl 25 mg PO DAILY 02/15/18 04/01/18 Acetaminophen [Tylenol] 650 mg PO Q4HR PRN tablet 02/16/18 04/01/18 Bisacodyl Supp [Dulcolax Supp] 1 supp ID Q3D PRN 02/26/18 04/01/18 Carbamide Peroxide Otic Drop 5 drops EACHEAR DAILY PRN 02/26/18 04/01/18 [Debrox Otic Drops] Clotrimazole [Clotrimazole 3] 1 applic TOP QPM 02/26/18 04/01/18 Loperamide HCl [Anti-Diarrheal] 2 mg PO DAILY PRN 02/26/18 04/01/18 Mag Hydrox/Al Hydrox/Simeth 20 ml PO DAILY PRN 02/26/18 04/01/18 [Antacid Suspension] Pedi Multivit 158/Iron/Vit K1 1 tab PO DAILY 02/26/18 04/01/18 [Cerovite Jr Tablet Chew] Triamcinolone 0.1% Cream [Kenalog 1 applic PO QID 04/01/18 04/01/18 0.1% Cream] Oseltamivir [Tamiflu] 75 mg PO BID #9 capsule 05/01/18 - Allergies Allergies/Adverse Reactions: Allergies Allergy/AdvReac Type Severity Reaction Status Date / Time codeine Allergy Edema Verified 04/17/18 11:38 - Social History Does the pt smoke?: No Smoking Status: Never smoker Does the pt drink ETOH?: No Does the pt have substance abuse?: No - Immunizations Immunizations are current?: Yes - POLST Patient has POLST: No POLST Status: DNR (She does not want to be kept alive if she has cardiac or pulmonary arrest. She does not have a POLST form yet but son and she will sit down and fill one out with me.) PD ED PE NORMAL - General General: No acute distress, Other (The patient's alert, cooperative, and appears to be in no acute distress) - HEENT HEENT: Atraumatic, PERRL, EOMI, Ears normal - Cardiac Cardiac: RRR, Strong equal pulses - Respiratory Respiratory: No respiratory distress - Abdomen Abdomen: Soft, Non tender - Derm Derm: Normal color - Extremities Extremities: No tenderness to palpate, Normal ROM s pain - Neuro Neuro: Other (The patient is alert, cooperative follows commands and has no acu te focal neurologic deficit) - Psych Psych: Other Results - Vitals Vitals: Vital Signs - 24 hr 05/01/18 05/01/18 05/01/18 12:07 12:22 15:20 Temperature 37.0 C 37 C Heart Rate 73 73 67 Respiratory 12 12 24 Rate Blood Pressure 126/68 126/68 142/64 H O2 Saturation 95 95 94 Oxygen O2 Source Room air - Labs Labs: Laboratory Tests 05/01/18 05/01/18 05/01/18 13:30 13:30 13:30 WBC 5.3 RBC 3.71 L Hgb 12.0 Hct 35.8 L MCV 96.6 MCH 32.5 H MCHC 33.6 RDW 13.7 Plt Count 165 MPV 8.4 Neut # (Auto) 3.0 Lymph # (Auto) 1.3 L [place] # (Auto) 0.9 Eos # (Auto) 0.0 Baso # (Auto) 0.1 Absolute Nucleated RBC 0.00 Nucleated RBC % 0.0 Sodium 134 L Potassium 3.8 Chloride 101 Carbon Dioxide 25 Anion Gap 8.0 BUN 19 Creatinine 1.0 Estimated GFR (MDRD) 53 L Glucose 94 Calcium 8.1 L Total Bilirubin 0.6 AST 36 ALT 15 Alkaline Phosphatase 78 Total Creatine Kinase 222 Troponin I < 0.04 Total Protein 6.7 Albumin 3.3 Globulin 3.4 Albumin/Globulin Ratio 1.0 Lipase 37 Urine Color Urine Clarity Urine pH Ur Specific [place] Urine Protein Urine Glucose (UA) Urine Ketones Urine Occult Blood Urine Nitrite Urine Bilirubin Urine Urobilinogen Ur Leukocyte Esterase Urine RBC Urine WBC Ur Squamous Epith Cells Urine Bacteria Ur Microscopic Review Urine Culture Comments Influenza A (Rapid) Influenza B (Rapid) 05/01/18 05/01/18 14:18 15:50 WBC RBC Hgb Hct MCV MCH MCHC RDW Plt Count MPV Neut # (Auto) Lymph # (Auto) [place] # (Auto) Eos # (Auto) Baso # (Auto) Absolute Nucleated RBC Nucleated RBC % Sodium Potassium Chloride Carbon Dioxide Anion Gap BUN Creatinine Estimated GFR (MDRD) Glucose Calcium Total Bilirubin AST ALT Alkaline Phosphatase Total Creatine Kinase Troponin I Total Protein Albumin Globulin Albumin/Globulin Ratio Lipase Urine Color YELLOW Urine Clarity HAZY Urine pH 6.0 Ur Specific [place] 1.025 Urine Protein NEGATIVE Urine Glucose (UA) NEGATIVE Urine Ketones NEGATIVE Urine Occult Blood NEGATIVE Urine Nitrite NEGATIVE Urine Bilirubin NEGATIVE Urine Urobilinogen 0.2 (NORMAL) Ur Leukocyte Esterase MODERATE H Urine RBC None Seen Urine WBC 11-25 H Ur Squamous Epith Cells MANY Squamous H Urine Bacteria Few Ur Microscopic Review INDICATED Urine Culture Comments NOT INDICATED Influenza A (Rapid) POSITIVE H Influenza B (Rapid) Negative - Rads (name of study) CXR Radiology: Final report received, See rad report PD MEDICAL DECISION MAKING - ED course ED course: The patient has influenza, the patient will be treated as an outpatient. The patient has no signs of a secondary bacterial infection and no evidence of sepsis or respiratory distress and appears appropriate for outpatient management. The patient's urinalysis is contaminated with squamous cells and has no complaints of dysuria. A culture will be sent and no antibiotics will be started. The patient will follow up with primary care. The patient will return to the emergency department for any worsening or any concerns Departure - Departure Disposition: 01 Home, Self Care Clinical Impression: Weakness, Influenza Condition: Good Instructions: Oseltamivir capsules, ED Flu Follow-Up: Hermes Brian MD [Primary Care Provider] - Within 1 week Prescriptions: Oseltamivir [Tamiflu] 75 mg PO BID #9 capsule Comments: Please return to the emergency department for worsening symptoms or any concerns
--- NOTE | 2018-05-01 14:56 | XRAY Report ---
Reason: cough Procedure Date: 05/01/2018 Accession Number: [id number] / [id number] Procedure: XR - Chest 2 View X-Ray CPT Code: 77409 FULL RESULT: EXAM: CHEST RADIOGRAPHY EXAM DATE: 05/01/2018 02:42 PM. CLINICAL HISTORY: Cough. COMPARISON: RIBS 2 VIEW RT 02/16/2018 11:26 AM. TECHNIQUE: 2 views. FINDINGS: Lungs/Pleura: Lungs are well expanded. No evidence of lobar infiltrate. There is costophrenic sulcus blunting. No pneumothorax. Mediastinum: Normal heart size. Left subclavian dual-lead pacemaker is in place. Other: None. IMPRESSION: 1. Costophrenic sulcus blunting could represent small effusions. 2. Evidence of lobar consolidation. 3. No pneumothorax. RADIA ADDENDUM: 05/01/18 15:07 CORRECTED IMPRESSION: 2. No evidence of lobar consolidation.
[2018-05-01 15:21] VITALS: BP 142/64
[2018-05-01 16:06] LABS: BILIRUBIN,URINE NEGATIVE (NEGATIVE); GLUCOSE, URINE (UA) NEGATIVE (NEGATIVE); KETONES,URINE (UA) NEGATIVE (NEGATIVE); LEUKOCYTE ESTERASE, URINE MODERATE (NEGATIVE); NITRITE,URINE NEGATIVE (NEGATIVE); OCCULT BLOOD,URINE NEGATIVE (NEGATIVE); PROTEIN,URINE NEGATIVE (NEGATIVE); UROBILINOGEN,URINE 0.2 (NORMAL) E.U./dL (NORMAL)
[2018-05-01 16:08] LABS: CLARITY,URINE HAZY (CLEAR)
[2018-05-01 16:15] LABS: BACTERIA,URINE Few /HPF (None Seen); RBC,URINE None Seen /HPF (0-5); SQUAMOUS EPITHELIAL CELL,UR MANY Squamous (<= Few)
[2018-05-01] MEDS ORDERED: OSELTAMIVIR 75 MG CAPSULE PO STA (16:17)
[2018-05-01] MEDS ORDERED: OLANZapine ODT 5 MG TABLET TL STA (17:32)
[2018-05-01] MEDS ORDERED: HALOPERIDOL 5 MG/ML VIAL IM ONE (17:39)
== END 2018-05-01 17:51 | disposition home or self-care (01) ==
LOC: EDUNIT# → ED 11:59
DX: J11.1 Influenza due to unidentified influenza virus with other respiratory manifestations (principal); R53.1 Weakness; R94.31 Abnormal electrocardiogram [ECG] [EKG]; F03.90 Unspecified dementia, unspecified severity, without behavioral disturbance, psychotic disturbance, mood disturbance, and anxiety; I10 Essential (primary) hypertension; E11.42 Type 2 diabetes mellitus with diabetic polyneuropathy; Z86.73 Personal history of transient ischemic attack (TIA), and cerebral infarction without residual deficits; Z95.0 Presence of cardiac pacemaker; Z96.649 Presence of unspecified artificial hip joint
CPT/HCPCS: 36415; 71046; 80053; 81001; 82550; 83690; 84484; 85025; 87275; 87276; 93005; 96360; 96372; 99283; A9270; 81003; 87086

== ENCOUNTER 2018-05-05 06:43 | Outpatient (CLI) | payer MEDICARE | END 2018-05-05 06:44 | disposition critical access hospital (66) | LOC: EMS 06:43 | PROVIDERS: ATTEND Surgery | DX: R10.9 Unspecified abdominal pain (principal); R19.7 Diarrhea, unspecified; R05 Cough | CPT/HCPCS: A0425; A0429 ==

== ENCOUNTER 2018-05-05 07:06 | Emergency (ER) | payer MEDICARE ==
--- NOTE | 2018-05-05 07:24 | ED Physician Documentation ---
PD HPI ABD PAIN - Stated complaint Stated Complaint: ABD PX - History obtained from History obtained from: Patient, EMS - History of Present Illness Timing - onset: Last night Timing - duration: Hours Timing - details: Gradual onset, Still present Quality: Sharp, Pain Location: LLQ Radiation: Lower back Improved by: Laying still Worsened by: Moving, Position Associated symptoms: Diarrhea. No: Fever, Nausea, Vomiting Similar symptoms before: Has not had sx before Recently seen: Emergency Dept - Additional information Additional information: 83-year-old female with a history of dementia has had several falls recently and today she is complaining of pain in her abdomen when she moves. She states that she is comfortable when she is laying still but when she goes to lay back in bed she will have pain come across her abdomen. She has not had vomiting diarrhea or fever. Review of Systems Constitutional: denies: Fever, Chills, Myalgias Eyes: denies: Decreased vision Ears: denies: Ear pain Nose: denies: Rhinorrhea / runny nose, Congestion Throat: denies: Sore throat Cardiac: denies: Chest pain / pressure, Palpitations Respiratory: denies: Dyspnea, Cough GI: reports: Abdominal Pain. denies: Nausea, Vomiting, Constipation, Diarrhea : denies: Dysuria, Frequency Skin: denies: Rash Musculoskeletal: reports: Back pain. 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: Other : Incontinence HEENT: Chronic sinusitis Psych: Depression Musculoskeletal: Osteoarthritis Derm: None - Past Surgical History Past Surgical History: Yes Ortho: Hip replacement /LAUNDRY PRESSER: section Cardiovascular: Pacemaker - Present Medications Home Medications: Ambulatory Orders Medication Instructions Recorded Confirmed RX: Atenolol 25 mg PO QPM 02/15/18 05/05/18 RX: Atorvastatin Calcium 40 mg PO QPM 02/15/18 05/05/18 RX: Calcium Citrate/Vitamin D3 1 tab PO DAILY 02/15/18 05/05/18 [Calcium Citrate-Vit D3 Tablet] RX: Cyanocobalamin (Vitamin B-12) 1,000 mcg PO DAILY 02/15/18 05/05/18 [Vitamin B-12 (500 mcg sublingual)] RX: Docusate Sodium [Dss] 250 mg PO DAILY 02/15/18 05/05/18 RX: Famotidine 40 mg PO BID 02/15/18 05/05/18 RX: Fluticasone [Flonase] 2 sprays CASSANDRA DAILY 02/15/18 05/05/18 RX: Furosemide 20 mg PO Q2D 02/15/18 05/05/18 RX: Lisinopril 10 mg PO DAILY 02/15/18 05/05/18 RX: QUEtiapine [SEROquel] 12.5 mg PO BID 02/15/18 05/05/18 RX: Sennosides [Senna] 8.6 mg PO BID 02/15/18 05/05/18 RX: Sertraline HCl 25 mg PO DAILY 02/15/18 05/05/18 RX: Acetaminophen [Tylenol] 650 mg PO Q4HR PRN tablet 02/16/18 05/05/18 Carbamide Peroxide Otic Drop 5 drops EACHEAR DAILY PRN 02/26/18 05/05/18 [Debrox Otic Drops] Loperamide HCl [Anti-Diarrheal] 2 mg PO DAILY PRN 02/26/18 05/05/18 Mag Hydrox/Al Hydrox/Simeth 20 ml PO DAILY PRN 02/26/18 05/05/18 [Antacid Suspension] Pedi Multivit 158/Iron/Vit K1 1 tab PO DAILY 02/26/18 05/05/18 [Cerovite Jr Tablet Chew] RX: Bisacodyl Supp [Dulcolax Supp] 1 supp [place] Q3D PRN 02/26/18 05/05/18 RX: Clotrimazole [Clotrimazole 3] 1 applic TOP QPM 02/26/18 05/05/18 RX: Triamcinolone 0.1% Cream 1 applic PO QID 04/01/18 05/05/18 [Kenalog 0.1% Cream] Oseltamivir [Tamiflu] 75 mg PO BID #9 capsule 05/01/18 05/05/18 - Allergies Allergies/Adverse Reactions: Allergies Allergy/AdvReac Type Severity Reaction Status Date / Time codeine Allergy Edema Verified 05/05/18 07:32 - Social History Does the pt smoke?: No Smoking Status: Never smoker Does the pt drink ETOH?: No Does the pt have substance abuse?: No - Immunizations Immunizations are current?: Yes - POLST Patient has POLST: No POLST Status: DNR (She does not want to be kept alive if she has cardiac or pulmonary arrest. She does not have a POLST form yet but son and she will sit down and fill one out with me.) PD ED PE NORMAL - Vitals Vital signs reviewed: Yes (mild systolic hypertension ) - General General: No acute distress, Well developed/nourished, Other (pleasant female in no distress) - HEENT HEENT: Atraumatic, PERRL, EOMI - Neck Neck: Supple, no meningeal sign, No bony TTP - Cardiac Cardiac: RRR, No murmur - Respiratory Respiratory: No respiratory distress, Clear bilaterally - Abdomen Abdomen: Soft, Non tender - Back Back: No CVA TTP, Other (There is tenderness to the lumbar spine over the T/L junction ) - Derm Derm: Normal color, Warm and dry, No rash - Extremities Extremities: No deformity, No edema - 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, No motor deficit, No sensory deficit, Normal speech Eye Opening: Spontaneous Motor: Obeys Commands Verbal: Oriented GCS Score: 15 - Psych Psych: Normal mood, Normal affect Results - Vitals Vitals: Vital Signs - 24 hr 05/05/18 07:05 Temperature 36.5 C Heart Rate 70 Respiratory 18 Rate Blood Pressure 142/71 H O2 Saturation 100 Oxygen O2 Source Room air - Labs Labs: Laboratory Tests 05/05/18 05/05/18 05/05/18 07:50 07:50 07:50 WBC 3.7 L RBC 3.88 L Hgb 12.3 Hct 37.3 MCV 96.1 MCH 31.8 H MCHC 33.1 RDW 13.4 Plt Count 155 MPV 8.4 Neut # (Auto) 0.9 L Lymph # (Auto) 2.1 [place] # (Auto) 0.6 Eos # (Auto) 0.1 Baso # (Auto) 0.0 Absolute Nucleated RBC 0.00 Nucleated RBC % 0.1 PT 12.6 INR 1.1 Sodium 139 Potassium 3.7 Chloride 102 Carbon Dioxide 28 Anion Gap 9.0 BUN 19 Creatinine 1.0 Estimated GFR (MDRD) 53 L Glucose 110 H Calcium 8.7 Total Bilirubin 0.5 AST 39 ALT 18 Alkaline Phosphatase 82 Troponin I Total Protein 6.8 Albumin 3.3 Globulin 3.5 Albumin/Globulin Ratio 0.9 L Lipase 42 05/05/18 07:50 WBC RBC Hgb Hct MCV MCH MCHC RDW Plt Count MPV Neut # (Auto) Lymph # (Auto) [place] # (Auto) Eos # (Auto) Baso # (Auto) Absolute Nucleated RBC Nucleated RBC % PT INR Sodium Potassium Chloride Carbon Dioxide Anion Gap BUN Creatinine Estimated GFR (MDRD) Glucose Calcium Total Bilirubin AST ALT Alkaline Phosphatase Troponin I < 0.04 Total Protein Albumin Globulin Albumin/Globulin Ratio Lipase - Rads (name of study) lumbar spine Radiology: Prelim report reviewed (Impression: 1. Mild anterior wedge compression deformity of the L1 vertebral body. This was present on prior chest radiographs on 05/01/[address] on 02/26/2018. 2 Bones are diffusely demineralized 3 mild degenerative disc and degenerative facet changes of the lumbar spine.), EMP read indepedently, See rad report PD MEDICAL DECISION MAKING - ED course Complexity details: reviewed old records, reviewed results, re-evaluated patient, considered differential, d/w patient, d/w family ED course: 83 y/o female with advanced dementia has developed increasing paranoia and has pain in her abdomen which appears to be related to her back and she has pain with movement and is comfortable while still. She develops the paranoia while here and refuses urinalysis. She will do that at [place] with her DrGabrielato follow up. Departure - Departure Disposition: 01 Home, Self Care Clinical Impression: Back pain of thoracolumbar region Instructions: ED Fx Comp Vertebral Follow-Up: Jeronimo Shaffer MD [Credentialed Staff Provider] - Comments: Follow-up with Dr. Shaffer for a urinalysis at [facility].
--- NOTE | 2018-05-05 07:53 | XRAY Report ---
Reason: mid lumbar pain with movement Procedure Date: 05/05/2018 Accession Number: [id number] / [id number] Procedure: XR - Lumbar Spine 2 View CPT Code: FULL RESULT: EXAM: LUMBOSACRAL SPINE RADIOGRAPHY EXAM DATE: 05/05/2018 07:19 AM. CLINICAL HISTORY: Mid lumbar pain with movement. COMPARISONS: HIP W/PELVIS 2-3V LT 02/15/2018 11:55 AM CHEST 2 VIEW 05/01/2018 2:33 PM CHEST W/ 02/26/2018 1:53 AM. TECHNIQUE: 3 views. FINDINGS: Alignment: Normal. No spondylolisthesis or scoliosis. Bones: Five fag-[id number] lumbar vertebral bodies are present. Bones are diffusely demineralized. There is mild anterior wedge compression deformity of the L1 vertebral body. Anterior height loss measures approximately 30% compared to the posterior wall. The remainder of visualized bones appear intact. Disks: There is mild disk height loss and end plate osteophyte formation throughout the lumbar spine. Facets: There are mild degenerative facet changes of the lower lumbar spine. Sacroiliac Joints: Unremarkable. Soft Tissues: Normal. The visualized bowel gas pattern is normal. IMPRESSION: 1. Mild anterior wedge compression deformity of the L1 vertebral body. This was present on prior chest radiographs on 05/01/[address] on 02/26/2018. 2. Bones are diffusely demineralized. 3. Mild degenerative disk and degenerative facet changes of the lumbar spine. RADIA
[2018-05-05 07:57] LABS: BASOPHILS % (AUTO) 1.3 %; EOSINOPHILS # (AUTO) 0.1 10^3/uL (0.0-0.7); EOSINOPHILS % (AUTO) 2.1 %; HGB - HEMOGLOBIN 12.3 g/dL (12.0-16.0); LYMPHOCYTES # (AUTO) 2.1 10^3/uL (1.5-3.5); LYMPHOCYTES % (AUTO) 57.1 %; MEAN CORPUSCULAR HEMOGLOBIN 31.8 pg (27.0-31.0); MEAN CORPUSCULAR HGB CONC 33.1 g/dL (32.0-36.0); MEAN CORPUSCULAR VOLUME 96.1 fL (81.0-99.0); MEAN PLATELET VOLUME 8.4 fL (7.9-10.8); MONOCYTES # (AUTO) 0.6 10^3/uL (0.0-1.0); NEUTROPHILS # (AUTO) 0.9 10^3/uL (1.5-6.6); NEUTROPHILS % (AUTO) 24.5 %; PLT - PLATELET COUNT 155 10^3/uL (130-450); RED BLOOD COUNT 3.88 10^6/uL (4.20-5.40); RED CELL DISTRIBUTION WIDTH 13.4 % (12.0-15.0); WHITE BLOOD COUNT 3.7 x10^3/uL (4.8-10.8)
[2018-05-05 08:05] LABS: INR 1.1 (0.8-1.2); PT - PROTHROMBIN TIME 12.6 secs (9.9-12.6)
[2018-05-05 08:14] LABS: ALBUMIN 3.3 g/dL (3.2-5.5); ALBUMIN/GLOBULIN RATIO 0.9 (1.0-2.2); BILIRUBIN,TOTAL 0.5 mg/dL (0.2-1.0); CALCIUM 8.7 mg/dL (8.5-10.3); TOTAL PROTEIN 6.8 g/dL (6.7-8.2)
[2018-05-05 19:28] VITALS: BP 132/70
== END 2018-05-05 11:24 | disposition home or self-care (01) ==
LOC: ED 07:06
DX: M51.36 Other intervertebral disc degeneration, lumbar region (principal); M48.56XA Collapsed vertebra, not elsewhere classified, lumbar region, initial encounter for fracture; M25.78 Osteophyte, vertebrae; F03.90 Unspecified dementia, unspecified severity, without behavioral disturbance, psychotic disturbance, mood disturbance, and anxiety; F22 Delusional disorders; I10 Essential (primary) hypertension; E11.42 Type 2 diabetes mellitus with diabetic polyneuropathy
CPT/HCPCS: 36415; 72100; 80053; 83690; 84484; 85025; 85610; 99283

== ENCOUNTER 2018-06-03 19:33 | Outpatient (CLI) | payer MEDICARE | END 2018-06-03 19:34 | disposition critical access hospital (66) | LOC: EMS 19:33 | PROVIDERS: ATTEND Surgery | DX: R46.89 Other symptoms and signs involving appearance and behavior (principal) | CPT/HCPCS: A0425; A0429 ==

== ENCOUNTER 2018-06-03 19:58 | Emergency (ER) | payer MEDICARE ==
--- NOTE | 2018-06-03 20:22 | ED Physician Documentation ---
PD HPI ALTERED MENTAL STATUS - Stated complaint Stated Complaint: AMS - Chief complaint Chief Complaint: General - History obtained from History obtained from: Patient, EMS, Caregiver - History of Present Illness Timing - onset: Today (Report from EMS is caregivers at [facility] noted the patient to abruptly be more agitated and somewhat combative as a attempted to help her. She did not seem to have any focal deficits. There is no apparent new injury. She has a bruise on her right cheek from a fall couple of weeks ago or more. She apparently had been doing okay earlier in the day and then had changed mentation around dinnertime tonight. There is no report of her complaining of headache chest pain or belly pain. Here in the ER she is not really answering questions and that she seems very angry and just asks why we bothering her when we ask questions and does not give real direct answers. She is awake and conversant.) Timing - duration: Hours (2) Timing - details: Abrupt onset Quality / character: Agitated, Combative. No: Less responsive, Confused Associated symptoms: No: Fever, Headache, NVD Contributing factors: No: Recent med change, Recent illness Basline status: Ambulatory, Disoriented (c/w some dementia), Walker Similar symptoms before: Diagnosis (had similar agitation with UTI in the past. Usually interacts okay by report.) Recently seen: Not recently seen Review of Systems Unable to obtain: Dementia, Uncooperative, Other (she does calm and answer some questions, otherwise responds with "why are you bothering me" or "you're the doctor, you should know the answer already".) Constitutional: denies: Fever Nose: denies: Congestion Throat: denies: Sore throat Cardiac: denies: Chest pain / pressure Respiratory: denies: Dyspnea GI: denies: Abdominal Pain, Vomiting, Diarrhea : denies: Dysuria Neurologic: denies: Headache PD PAST MEDICAL HISTORY - Past Medical History Past Medical History: Yes Cardiovascular: Hypertension, Atrial fibrillation Respiratory: None Neuro: Dementia, CVA, Peripheral neuropathy Endocrine/Autoimmune: Type 2 diabetes GI: None 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 : Incontinence HEENT: Chronic sinusitis Psych: Depression Musculoskeletal: Osteoarthritis Derm: None - Past Surgical History Past Surgical History: Yes Ortho: Hip replacement /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: section Cardiovascular: Pacemaker - Present Medications Home Medications: Ambulatory Orders Medication Instructions Recorded Confirmed Atenolol 25 mg PO QPM 02/15/18 05/05/18 Atorvastatin Calcium 40 mg PO QPM 02/15/18 05/05/18 Calcium Citrate/Vitamin D3 1 tab PO DAILY 02/15/18 05/05/18 [Calcium Citrate-Vit D3 Tablet] Cyanocobalamin (Vitamin B-12) 1,000 mcg PO DAILY 02/15/18 05/05/18 [Vitamin B-12 (500 mcg sublingual)] Docusate Sodium [Dss] 250 mg PO DAILY 02/15/18 05/05/18 Famotidine 40 mg PO BID 02/15/18 05/05/18 Fluticasone [Flonase] 2 sprays CASSANDRA DAILY 02/15/18 05/05/18 Furosemide 20 mg PO Q2D 02/15/18 05/05/18 Lisinopril 10 mg PO DAILY 02/15/18 05/05/18 QUEtiapine [SEROquel] 12.5 mg PO BID 02/15/18 05/05/18 Sennosides [Senna] 8.6 mg PO BID 02/15/18 05/05/18 Sertraline HCl 25 mg PO DAILY 02/15/18 05/05/18 Acetaminophen [Tylenol] 650 mg PO Q4HR PRN tablet 02/16/18 05/05/18 Bisacodyl Supp [Dulcolax Supp] 1 supp [place] Q3D PRN 02/26/18 05/05/18 Carbamide Peroxide Otic Drop 5 drops EACHEAR DAILY PRN 02/26/18 05/05/18 [Debrox Otic Drops] Clotrimazole [Clotrimazole 3] 1 applic TOP QPM 02/26/18 05/05/18 Loperamide HCl [Anti-Diarrheal] 2 mg PO DAILY PRN 02/26/18 05/05/18 Mag Hydrox/Al Hydrox/Simeth 20 ml PO DAILY PRN 02/26/18 05/05/18 [Antacid Suspension] Pedi Multivit 158/Iron/Vit K1 1 tab PO DAILY 02/26/18 05/05/18 [Cerovite Jr Tablet Chew] Triamcinolone 0.1% Cream [Kenalog 1 applic PO QID 04/01/18 05/05/18 0.1% Cream] Oseltamivir [Tamiflu] 75 mg PO BID #9 capsule 05/01/18 05/05/18 - Allergies Allergies/Adverse Reactions: Allergies Allergy/AdvReac Type Severity Reaction Status Date / Time codeine Allergy Edema Verified 05/05/18 07:32 - Social History Does the pt smoke?: No Smoking Status: Never smoker Does the pt drink ETOH?: No Does the pt have substance abuse?: No - Immunizations Immunizations are current?: Yes - POLST Patient has POLST: No POLST Status: DNR (She does not want to be kept alive if she has cardiac or pulmonary arrest. She does not have a POLST form yet but son and she will sit down and fill one out with me.) PD ED PE NORMAL - General General: Alert and oriented X 3, No acute distress, Well developed/nourished - HEENT HEENT: Pharynx benign, Other (older purple bruising right cheek.) - Neck Neck: Supple, no meningeal sign, No adenopathy - Cardiac Cardiac: RRR, No murmur - Respiratory Respiratory: Clear bilaterally - Abdomen Abdomen: Soft, Non tender, Non distended - Derm Derm: Normal color, Warm and dry - Neuro Neuro: No motor deficit, No sensory deficit, Normal speech - Psych Psych: No: Normal mood (agitated and mean verbally) Results - Vitals Vitals: Vital Signs - 24 hr 06/03/18 06/04/18 20:04 00:59 Temperature 36.7 C 36.6 C Heart Rate 80 74 Respiratory 24 17 Rate Blood Pressure 156/59 H 148/60 H O2 Saturation 100 99 Oxygen O2 Source Room air - Labs Labs: Laboratory Tests 06/03/18 06/03/18 06/03/18 21:10 21:50 21:50 WBC 9.1 RBC 3.55 L Hgb 11.3 L Hct 34.6 L MCV 97.6 MCH 31.8 H MCHC 32.6 RDW 14.2 Plt Count 197 MPV 8.0 Neut # (Auto) 5.7 Lymph # (Auto) 2.2 [place] # (Auto) 0.9 Eos # (Auto) 0.2 Baso # (Auto) 0.1 Absolute Nucleated RBC 0.00 Nucleated RBC % 0.0 Sodium 139 Potassium 3.8 Chloride 102 Carbon Dioxide 26 Anion Gap 11.0 BUN 20 Creatinine 1.3 H Estimated GFR (MDRD) 39 L Glucose 128 H Lactic Acid Calcium 8.6 Magnesium 2.0 Total Bilirubin 0.5 AST 20 ALT < 10 L Alkaline Phosphatase 71 Troponin I Total Protein 6.2 L Albumin 3.3 Globulin 2.9 Albumin/Globulin Ratio 1.1 Lipase 40 TSH Urine Color YELLOW Urine Clarity CLEAR Urine pH 6.5 Ur Specific [place] <=1.005 Urine Protein NEGATIVE Urine Glucose (UA) NEGATIVE Urine Ketones NEGATIVE Urine Occult Blood NEGATIVE Urine Nitrite NEGATIVE Urine Bilirubin NEGATIVE Urine Urobilinogen 0.2 (NORMAL) Ur Leukocyte Esterase NEGATIVE Ur Microscopic Review NOT INDICATED Urine Culture Comments NOT INDICATED Ethyl Alcohol < 5.0 06/03/18 06/03/18 06/03/18 21:50 21:50 21:50 WBC RBC Hgb Hct MCV MCH MCHC RDW Plt Count MPV Neut # (Auto) Lymph # (Auto) [place] # (Auto) Eos # (Auto) Baso # (Auto) Absolute Nucleated RBC Nucleated RBC % Sodium Potassium Chloride Carbon Dioxide Anion Gap BUN Creatinine Estimated GFR (MDRD) Glucose Lactic Acid 1.2 Calcium Magnesium Total Bilirubin AST ALT Alkaline Phosphatase Troponin I < 0.04 Total Protein Albumin Globulin Albumin/Globulin Ratio Lipase TSH 2.13 Urine Color Urine Clarity Urine pH Ur Specific [place] Urine Protein Urine Glucose (UA) Urine Ketones Urine Occult Blood Urine Nitrite Urine Bilirubin Urine Urobilinogen Ur Leukocyte Esterase Ur Microscopic Review Urine Culture Comments Ethyl Alcohol PD MEDICAL DECISION MAKING - ED course Complexity details: re-evaluated patient (Calm, pleasant and cooperative on recheck. No acute process on testing. F/U PMD regarding potential med adjustments. ), considered differential, d/w patient Departure - Departure Disposition: 01 Home, Self Care Clinical Impression: Behavioral change Clinical Impression: (Ruled Out): UTI (urinary tract infection) Condition: Stable Record reviewed to determine appropriate education?: Yes Follow-Up: Hermes Brian MD [Primary Care Provider] - Comments: Continue usual medications and diet. Recheck PMD if recurrent changes in b ehavior for potential medications changes. Discharge Date/Time: 06/04/18 01:09
[2018-06-03] MEDS ORDERED: HALOPERIDOL 5 MG/ML VIAL IM STA (20:33)
[2018-06-03 21:30] LABS: BILIRUBIN,URINE NEGATIVE (NEGATIVE); GLUCOSE, URINE (UA) NEGATIVE (NEGATIVE); KETONES,URINE (UA) NEGATIVE (NEGATIVE); LEUKOCYTE ESTERASE, URINE NEGATIVE (NEGATIVE); NITRITE,URINE NEGATIVE (NEGATIVE); OCCULT BLOOD,URINE NEGATIVE (NEGATIVE); PH,URINE 6.5 PH (5.0-7.5); PROTEIN,URINE NEGATIVE (NEGATIVE); UROBILINOGEN,URINE 0.2 (NORMAL) E.U./dL (NORMAL)
[2018-06-03 21:31] LABS: CLARITY,URINE CLEAR (CLEAR)
[2018-06-03 21:56] LABS: BASOPHILS # (AUTO) 0.1 10^3/uL (0.0-0.1); BASOPHILS % (AUTO) 1.1 %; EOSINOPHILS # (AUTO) 0.2 10^3/uL (0.0-0.7); EOSINOPHILS % (AUTO) 2.3 %; HGB - HEMOGLOBIN 11.3 g/dL (12.0-16.0); LYMPHOCYTES # (AUTO) 2.2 10^3/uL (1.5-3.5); LYMPHOCYTES % (AUTO) 23.8 %; MEAN CORPUSCULAR HEMOGLOBIN 31.8 pg (27.0-31.0); MEAN CORPUSCULAR HGB CONC 32.6 g/dL (32.0-36.0); MEAN CORPUSCULAR VOLUME 97.6 fL (81.0-99.0); MONOCYTES # (AUTO) 0.9 10^3/uL (0.0-1.0); MONOCYTES % (AUTO) 9.9 %; NEUTROPHILS # (AUTO) 5.7 10^3/uL (1.5-6.6); NEUTROPHILS % (AUTO) 62.9 %; PLT - PLATELET COUNT 197 10^3/uL (130-450); RED BLOOD COUNT 3.55 10^6/uL (4.20-5.40); RED CELL DISTRIBUTION WIDTH 14.2 % (12.0-15.0); WHITE BLOOD COUNT 9.1 x10^3/uL (4.8-10.8)
[2018-06-03 22:19] LABS: ALBUMIN 3.3 g/dL (3.2-5.5); ALBUMIN/GLOBULIN RATIO 1.1 (1.0-2.2); ALKALINE PHOSPHATASE 71 IU/L (42-121); ALT ALANINE AMINOTRANSFERASE < 10 IU/L (10-60); AST ASPARTATE AMINOTRANSFERASE 20 IU/L (10-42); BILIRUBIN,TOTAL 0.5 mg/dL (0.2-1.0); BUN - BLOOD UREA NITROGEN 20 mg/dL (6-20); CALCIUM 8.6 mg/dL (8.5-10.3); CARBON DIOXIDE - CO2 26 mmol/L (21-32); CHLORIDE 102 mmol/L (101-111); CREATININE 1.3 mg/dL (0.4-1.0); GFR - MDRD 39 (>89); GLUCOSE 128 mg/dL (70-100); LIPASE 40 U/L (22-51); SODIUM 139 mmol/L (135-145); TOTAL PROTEIN 6.2 g/dL (6.7-8.2)
--- NOTE | 2018-06-04 00:03 | CT Report ---
Reason: abrupt behavioral change today Procedure Date: 06/03/2018 Accession Number: [id number] / [id number] Procedure: CT - HEAD WO CPT Code: FULL RESULT: EXAM: CT HEAD EXAM DATE: 06/03/2018 11:47 PM. CLINICAL HISTORY: Transient alteration in awareness. COMPARISON: CERVICAL SPINE W/O 03/14/2018 3:27 PM HEAD W/O 03/14/2018 3:27 PM. TECHNIQUE: Multiaxial CT images were obtained from the foramen magnum to the vertex. Reformats: Sagittal and coronal. IV contrast: None. In accordance with CT protocol optimization, one or more of the following dose reduction techniques were utilized for this exam: automated exposure control, adjustment of mA and/or KV based on patient size, or use of iterative reconstructive technique. FINDINGS: Parenchyma: Old infarcts in the right frontal and left parietal lobe are seen. No intracranial hemorrhage, midline shift, or mass-effect. Diffuse chronic microangiopathic white matter changes are evident. Extraaxial Spaces: Previous right hemispheric subdural hematoma has essentially resolved. Trace low-density subdural collection measuring 4 mm over the right parietal lobe region persists. Ventricles: The ventricles and cortical sulci are enlarged, consistent with age-related tissue loss. Sinuses and orbits: Imaged paranasal sinuses, orbits, and mastoids show no significant abnormality. Bones: No evidence of fracture or calvarial defect. Other: None. IMPRESSION: No acute findings. Near complete resolution in previous subdural hematoma over the right cerebral hemisphere. RADIA
[2018-06-04 01:00] VITALS: BP 148/60
== END 2018-06-04 01:09 | disposition home or self-care (01) ==
LOC: EDUNIT# → ED 19:58
DX: F03.91 Unspecified dementia, unspecified severity, with behavioral disturbance (principal); I10 Essential (primary) hypertension; E11.42 Type 2 diabetes mellitus with diabetic polyneuropathy; Z86.73 Personal history of transient ischemic attack (TIA), and cerebral infarction without residual deficits; Z87.440 Personal history of urinary (tract) infections; Z66 Do not resuscitate
CPT/HCPCS: 36415; 70450; 80053; 80320; 81001; 81003; 83605; 83690; 83735; 84443; 84484; 85025; 87086; 96372; 99283

== ENCOUNTER 2018-10-01 09:59 | Outpatient (CLI) | payer MEDICARE | END 2018-10-01 10:00 | disposition critical access hospital (66) | LOC: EMS 09:59 | PROVIDERS: ATTEND Surgery | DX: S09.90XA Unspecified injury of head, initial encounter (principal); M25.512 Pain in left shoulder; W19.XXXA Unspecified fall, initial encounter; Y92.092 Bedroom in other non-institutional residence as the place of occurrence of the external cause | CPT/HCPCS: A0425; A0429 ==

== ENCOUNTER 2018-10-01 10:25 | Observation (INO) | payer MEDICARE ==
--- NOTE | 2018-10-01 10:44 | ED Physician Documentation ---
PD HPI Fall - Stated complaint Stated Complaint: GLF - Chief complaint Chief Complaint: Trauma Ext - History obtained from History obtained from: EMS - History of Present Illness Mechanism of injury: Unknown Fall distance: Unknown Where injury occurred: Home Timing - onset: Last night Injury(ies) location: Head, Face, Left Uppper Extremity Quality of pain: Pain Associated symptoms: AMS, Amnesia Symptoms improve with: Rest Worsens with: Movement, Palpation Contributing factors: No: Anticoagulated, Intoxicated Similar symptoms before: Diagnosis (facial trauma) Recently seen: Not recently seen - Additional information Additional information: 83-year-old female with advanced dementia was last seen in her apartment at [facility] yesterday afternoon at 4:30 PM. When they want to check on the patient this morning she was found on the floor between her bed and the wall. She has bruising to the left face and shoulder and altered level of consciousness. She is transferred to the hospital by ambulance and medics indicate the patient is a comfort measures only patient. Review of Systems Unable to obtain: AMS PD PAST MEDICAL HISTORY - Past Medical History Cardiovascular: Hypertension, Atrial fibrillation Respiratory: None Neuro: Dementia, CVA, Peripheral neuropathy Endocrine/Autoimmune: Type 2 diabetes GI: None PM HEAD COOK: Other : Incontinence HEENT: Chronic sinusitis Psych: Depression Musculoskeletal: Osteoarthritis Derm: None - Past Surgical History Past Surgical History: Yes Ortho: Hip replacement /PM HEAD COOK: section Cardiovascular: Pacemaker - Present Medications Home Medications: Ambulatory Orders Medication Instructions Recorded Confirmed Atenolol 25 mg PO QPM 02/15/18 05/05/18 Atorvastatin Calcium 40 mg PO QPM 02/15/18 05/05/18 Calcium Citrate/Vitamin D3 1 tab PO DAILY 02/15/18 05/05/18 [Calcium Citrate-Vit D3 Tablet] Cyanocobalamin (Vitamin B-12) 1,000 mcg PO DAILY 02/15/18 05/05/18 [Vitamin B-12 (500 mcg sublingual)] Docusate Sodium [Dss] 250 mg PO DAILY 02/15/18 05/05/18 Famotidine 40 mg PO BID 02/15/18 05/05/18 Fluticasone [Flonase] 2 sprays CASSANDRA DAILY 02/15/18 05/05/18 Furosemide 20 mg PO Q2D 02/15/18 05/05/18 Lisinopril 10 mg PO DAILY 02/15/18 05/05/18 QUEtiapine [SEROquel] 12.5 mg PO BID 02/15/18 05/05/18 Sennosides [Senna] 8.6 mg PO BID 02/15/18 05/05/18 Sertraline HCl 25 mg PO DAILY 02/15/18 05/05/18 Acetaminophen [Tylenol] 650 mg PO Q4HR PRN tablet 02/16/18 05/05/18 Bisacodyl Supp [Dulcolax Supp] 1 supp IN Q3D PRN 02/26/18 05/05/18 Carbamide Peroxide Otic Drop 5 drops EACHEAR DAILY PRN 02/26/18 05/05/18 [Debrox Otic Drops] Clotrimazole [Clotrimazole-3] 1 applic TOP QPM 02/26/18 05/05/18 Loperamide HCl [Anti-Diarrheal] 2 mg PO DAILY PRN 02/26/18 05/05/18 Mag Hydrox/Al Hydrox/Simeth 20 ml PO DAILY PRN 02/26/18 05/05/18 [Antacid Suspension] Pedi Multivit 158/Iron/Vit K1 1 tab PO DAILY 02/26/18 05/05/18 [Cerovite Jr Tablet Chew] Triamcinolone 0.1% Cream [Kenalog 1 applic PO QID 04/01/18 05/05/18 0.1% Cream] Oseltamivir [Tamiflu] 75 mg PO BID #9 capsule 05/01/18 05/05/18 - Allergies Allergies/Adverse Reactions: Allergies Allergy/AdvReac Type Severity Reaction Status Date / Time codeine Allergy Edema Verified 05/05/18 07:32 - Social History Does the pt smoke?: No Smoking Status: Never smoker Does the pt drink ETOH?: No Does the pt have substance abuse?: No - Immunizations Immunizations are current?: Yes - POLST Patient has POLST: No POLST Status: DNR (She does not want to be kept alive if she has cardiac or pulmonary arrest. She does not have a POLST form yet but son and she will sit down and fill one out with me.) PD ED PE NORMAL - Vitals Vital signs reviewed: Yes (tachy and hypertensive ) - General General: Well developed/nourished, Other (opens eyes to voice and will follow commands is unable to make understandable vocalization) - HEENT HEENT: PERRL, EOMI, Other (There is obvious trauma to the left face with eccyh mosis to the left tenisha-orbital tissues. The paitent appears to be breathing without difficulty. ) - Neck Neck: Supple, no meningeal sign, Other (There is some pain to palpation of the neck but without crepitnance. There is obvious swelling to the left shoulder. ) - Cardiac Cardiac: Other (irregularly irregular rapid and with audible flow murmer .) - Respiratory Respiratory: No respiratory distress, Clear bilaterally - Abdomen Abdomen: Soft, Non tender - Back Back: No CVA TTP - Derm Derm: Normal color, Warm and dry, No rash - Extremities Extremities: Other (There is swelling, tenderness and reduced ROM of the left shoulder. distla n/v is intact. ) - Neuro Neuro: No motor deficit, No sensory deficit Eye Opening: To Voice Motor: Obeys Commands Verbal: Incomprehensible GCS Score: 11 - Psych Psych: Other (mood is withdrawn and the affect is flat) Results - Vitals Vitals: Vital Signs - 24 hr 10/01/18 10/01/18 10/01/18 10:27 11:01 11:30 Temperature 36 C L Heart Rate 116 H 113 H Respiratory 14 17 Rate Blood Pressure 140/94 H 159/70 H O2 Saturation 97 97 10/01/18 10/01/18 12:00 13:00 Temperature Heart Rate 129 H 82 Respiratory 15 20 Rate Blood Pressure 124/85 H 109/66 O2 Saturation 97 100 Oxygen O2 Source Room air - Labs Labs: Laboratory Tests 10/01/18 10/01/18 10/01/18 10:37 10:37 10:37 WBC 18.8 H RBC 4.16 L Hgb 13.7 Hct 42.4 MCV 101.9 H MCH 32.9 H MCHC 32.3 RDW 13.8 Plt Count 171 MPV 10.2 Neut # (Auto) 16.3 H Lymph # (Auto) 1.3 L Stokes # (Auto) 0.9 Eos # (Auto) 0.2 Baso # (Auto) 0.1 Absolute Nucleated RBC 0.00 Nucleated RBC % 0.0 Sodium 139 Potassium 3.8 Chloride 100 L Carbon Dioxide 22 Anion Gap 17.0 H BUN 22 H Creatinine 1.1 H Estimated GFR (MDRD) 47 L Glucose 176 H Calcium 9.4 Total Bilirubin 1.1 H AST 30 ALT 13 Alkaline Phosphatase 83 Total Creatine Kinase 334 H CK-MB (CK-2) 16.0 H Total Protein 8.2 Albumin 4.2 Globulin 4.0 Albumin/Globulin Ratio 1.1 Lipase 32 Urine Color Urine Clarity Urine pH Ur Specific [place] Urine Protein Urine Glucose (UA) Urine Ketones Urine Occult Blood Urine Nitrite Urine Bilirubin Urine Urobilinogen Ur Leukocyte Esterase Urine RBC Urine WBC Urine WBC Clumps Ur Squamous Epith Cells Urine Bacteria Ur Microscopic Review Urine Culture Comments 10/01/18 11:55 WBC RBC Hgb Hct MCV MCH MCHC RDW Plt Count MPV Neut # (Auto) Lymph # (Auto) Stokes # (Auto) Eos # (Auto) Baso # (Auto) Absolute Nucleated RBC Nucleated RBC % Sodium Potassium Chloride Carbon Dioxide Anion Gap BUN Creatinine Estimated GFR (MDRD) Glucose Calcium Total Bilirubin AST ALT Alkaline Phosphatase Total Creatine Kinase CK-MB (CK-2) Total Protein Albumin Globulin Albumin/Globulin Ratio Lipase Urine Color YELLOW Urine Clarity CLOUDY Urine pH 6.5 Ur Specific [place] 1.020 Urine Protein 100 H Urine Glucose (UA) NEGATIVE Urine Ketones NEGATIVE Urine Occult Blood LARGE H Urine Nitrite POSITIVE H Urine Bilirubin NEGATIVE Urine Urobilinogen 0.2 (NORMAL) Ur Leukocyte Esterase LARGE H Urine RBC 11-25 H Urine WBC >25 H Urine WBC Clumps PRESENT Ur Squamous Epith Cells FEW Squamous Urine Bacteria Moderate H Ur Microscopic Review INDICATED Urine Culture Comments INDICATED - Rads (name of study) CT head without Radiology: Prelim report reviewed (Impression: 1. Acute focal posttraumatic intraparenchymal hemorrhage as described adjacent to the encephalomalacia in the right frontal lobe and in the anterior left frontal lobe underlying site of injury. 2 Acute subdural blood measuring 7 mm maximum thickness over the right parietal convexity consistent with contrecoup injury. 3 Superimposed senescent changes and sequela of prior infarction as described. No significant mass- effect. 4 Acute fractures of left maxillary sinus and left zygomatic arch as described.), EMP read indepedently, See rad report CT cervical spine Radiology: Prelim report reviewed (Impression degenerative changes as detailed. No fracture of the cervical spine appreciated.), EMP read indepedently, See rad report Shoulder Radiology: Prelim report reviewed (Impression displaced anterior angulated fracture surgical neck of the left humerus.), EMP read indepedently, See rad report CT facial bones Radiology: Prelim report reviewed (Impression: 1. Multiple left facial fractures involving the maxillary sinus, and zygomatic arch and lateral superior left orbital pabon as detailed.), EMP read indepedently, See rad report chest Radiology: Prelim report reviewed (Impression: No acute abnormality.), EMP read indepedently, See rad report Procedures - IVC sono (time) 1030 Bedside IVC sono: IVC measures (cm) (1.42), IVC collapsed c insp (cm) (0.83), [facility] PD MEDICAL DECISION MAKING - ED course Complexity details: reviewed old records, reviewed results, re-evaluated patient, considered differential, d/w family ED course: 83-year-old female with advanced dementia has had a fall with catastrophic injuries including intraparenchymal and subdural hematoma orbital fracture left shoulder fracture. She has a request to her son that no heroics be done in the event of catastrophic illness or injury. She has been wanting to join her who has since he . She has had pathologic grieving and a lot of spontaneous emotional breakdown. She has had progressive dementia and she has had multiple falls. Today the patient has a reduced level of consciousness and catastrophic injuries and I have discussed with the son admission for comfort measures and at this point we have held off on applying intravenous fluids or antibiotics for what appears to be urinary tract infection as well. We did attempt to consult the hospice doctor who was not on-call. I did contact Dr. Kelly Infante for consultation with the plan for admission here for comfort measures. Departure - Departure Disposition: 66 [facility] DC/Xfer Clinical Impression: Orbital floor (blow-out) closed fracture Traumatic subdural hemorrhage Qualifiers: Encounter type: initial encounter Loss of consciousness presence/duration: with LOC of unspecified duration Qualified Code(s): S06.5X9A - Traumatic subdural hemorrhage with loss of consciousness of unspecified duration, initial encounter UTI (urinary tract infection) Qualifiers: Urinary tract infection type: acute cystitis Hematuria presence: without hematuria Qualified Code(s): N30.00 - Acute cystitis without hematuria Intraparenchymal hematoma of brain due to trauma Qualifiers: Encounter type: initial encounter Laterality: unspecified laterality Loss of consciousness presence/duration: with LOC of unspecified duration Qualified Code(s): S06.369A - Traumatic hemorrhage of cerebrum, unspecified, with loss of consciousness of unspecified duration, initial encounter Closed fracture of left proximal humerus Qualifiers: Encounter type: initial encounter Fracture morphology: unspecified fracture morphology Qualified Code(s): S42.202A - Unspecified fracture of upper end of left humerus, initial encounter for closed fracture
[2018-10-01 10:49] LABS: BASOPHILS # (AUTO) 0.1 10^3/uL (0.0-0.1); BASOPHILS % (AUTO) 0.4 %; EOSINOPHILS # (AUTO) 0.2 10^3/uL (0.0-0.7); EOSINOPHILS % (AUTO) 0.9 %; HGB - HEMOGLOBIN 13.7 g/dL (12.0-16.0); LYMPHOCYTES # (AUTO) 1.3 10^3/uL (1.5-3.5); LYMPHOCYTES % (AUTO) 6.8 %; MEAN CORPUSCULAR HEMOGLOBIN 32.9 pg (27.0-31.0); MEAN CORPUSCULAR HGB CONC 32.3 g/dL (32.0-36.0); MEAN CORPUSCULAR VOLUME 101.9 fL (81.0-99.0); MEAN PLATELET VOLUME 10.2 fL (7.9-10.8); MONOCYTES # (AUTO) 0.9 10^3/uL (0.0-1.0); MONOCYTES % (AUTO) 4.6 %; NEUTROPHILS # (AUTO) 16.3 10^3/uL (1.5-6.6); NEUTROPHILS % (AUTO) 86.8 %; PLT - PLATELET COUNT 171 10^3/uL (130-450); RED BLOOD COUNT 4.16 10^6/uL (4.20-5.40); RED CELL DISTRIBUTION WIDTH 13.8 % (12.0-15.0); WHITE BLOOD COUNT 18.8 x10^3/uL (4.8-10.8)
[2018-10-01 10:59] LABS: ALBUMIN 4.2 g/dL (3.2-5.5); ALBUMIN/GLOBULIN RATIO 1.1 (1.0-2.2); BILIRUBIN,TOTAL 1.1 mg/dL (0.2-1.0); CALCIUM 9.4 mg/dL (8.5-10.3); CREATININE 1.1 mg/dL (0.4-1.0); TOTAL PROTEIN 8.2 g/dL (6.7-8.2)
--- NOTE | 2018-10-01 11:32 | CT Report ---
Reason: fall altered LOC L facial trauma Procedure Date: 10/01/2018 Accession Number: [id number] / [id number] Procedure: CT - HEAD WO CPT Code: FULL RESULT: EXAM: CT HEAD EXAM DATE: 10/01/2018 11:02 AM. CLINICAL HISTORY: Fall, altered loss of consciousness, left facial trauma. COMPARISON: HEAD W/O 06/03/2018 11:40 PM. TECHNIQUE: Multiaxial CT images were obtained from the foramen magnum to the vertex. Reformats: Sagittal and coronal. IV contrast: None. In accordance with CT protocol optimization, one or more of the following dose reduction techniques were utilized for this exam: automated exposure control, adjustment of mA and/or KV based on patient size, or use of iterative reconstructive technique. FINDINGS: Parenchyma: Stable encephalomalacia of the left occipital and right frontal lobes presumably from prior infarction. There is an 9 mm oval hemorrhage of the right frontal lobe along the posterior margin of encephalomalacia. There are 2 areas of subcortical parenchymal hemorrhage of the anterior left frontal lobe, each measuring 7 mm. There is acute subdural blood along the right parieto-occipital convexity measuring 7 mm in thickness. No midline shift or herniation. Stable encephalomalacic changes related to aging. Confluent low density in the periventricular white matter consistent with chronic microvascular ischemic changes. Extraaxial Spaces: As above. Ventricles: Within expected limits for age and atrophy. Sinuses and Orbits: Acute multi-part fracture of the left anterior medial and lateral maxillary sinus pabon with subtotal opacification. There is also segmental fracture of the left zygomatic arch. Partial opacification of several left-sided ethmoid air cells and air-fluid levels presumably blood within the sphenoid sinuses. Bones: No appreciable calvarial fracture. Other: Soft tissue swelling overlying the left frontal scalp consistent with scalp hematoma. IMPRESSION: 1. Acute focal posttraumatic intraparenchymal hemorrhage as described adjacent to encephalomalacia in the right frontal lobe and in the anterior left frontal lobe underlying site of injury. 2. Acute subdural blood measuring 7 mm in maximum thickness over the right parietal convexity consistent with contrecoup injury. 3. Superimposed senescent changes and sequela of prior infarction as described. No significant mass effect. 4. Acute fractures of the left maxillary sinus and left zygomatic arch as described. RADIA The call report notification system was initiated by Dr. Alfonso Guzmán at 11:30 AM on 10/01/2018. The above call report findings were discussed with Cullen Ambrocio by Dr. Alfonso Guzmán at 11:35 AM on 10/01/2018.
--- NOTE | 2018-10-01 11:33 | XRAY Report ---
Reason: chest pain Procedure Date: 10/01/2018 Accession Number: [id number] / [id number] Procedure: XR - Chest 1 View X-Ray CPT Code: 80697 FULL RESULT: EXAM: CHEST RADIOGRAPHY 1 VIEW EXAM DATE: 10/01/2018. CLINICAL HISTORY: Chest pain. COMPARISON: PA and lateral chest done 05/01/2018. TECHNIQUE: AP portable chest at 1102. FINDINGS: Lungs/Pleura: Normal vasculature. The lungs are clear. No pleural fluid or pneumothorax. Mediastinum: Normal cardiac and mediastinal contours. Dual lead pacemaker in place from the left, the right atrial and right ventricular leads in customary position. Bones: Normal. IMPRESSION: No acute abnormality. RADIA
--- NOTE | 2018-10-01 11:35 | XRAY Report ---
Reason: fall swelling pain Procedure Date: 10/01/2018 Accession Number: [id number] / [id number] Procedure: XR - Shoulder 3 View LT CPT Code: FULL RESULT: EXAM: LEFT SHOULDER RADIOGRAPHY EXAM DATE: 10/01/2018 11:22 AM. CLINICAL HISTORY: Fall, swelling, pain. COMPARISON: None. TECHNIQUE: 3 views. FINDINGS: Bones: There is an acute mildly impacted displaced transverse fracture anatomic neck of the left humerus with apex anterior displacement/angulation. Joints: Humeral head fracture fragment remains located. Soft tissues: The visualized hemithorax is unremarkable. Left posterior pectoral pacing devices included. IMPRESSION: Displaced anterior angulated fracture surgical neck of the left humerus. RADIA
--- NOTE | 2018-10-01 11:45 | CT Report ---
Reason: Left facial trauma Procedure Date: 10/01/2018 Accession Number: [id number] / [id number] Procedure: CT - MAXILLOFACIAL WO CPT Code: FULL RESULT: EXAM: CT MAXILLOFACIAL WITHOUT CONTRAST EXAM DATE: 10/01/2018 11:02 AM. CLINICAL HISTORY: Left facial trauma. COMPARISONS: HEAD W/O 06/03/2018 11:40 PM. TECHNIQUE: Thin-section axial images were acquired of the face without contrast. Post-processing: Coronal and sagittal reformats. Other: None. In accordance with CT protocol optimization, one or more of the following dose reduction techniques were utilized for this exam: automated exposure control, adjustment of mA and/or KV based on patient size, or use of iterative reconstructive technique. FINDINGS: Soft Tissue: Asymmetric soft tissue swelling noted of the left face, left periorbital tissues and left forehead. Orbits: Mild edema adjacent to the left lacrimal gland. Bones: Minimally overlapping fractures of the posterior lateral left orbital wall extending to nondisplaced buckle fractures involving the superior left orbital wall. The inferior and medial left orbital pabon appear to be intact. Multipart buckle fractures noted of the anterior lateral and inferior left maxillary sinus. Mildly displaced segmental fracture of the left zygomatic arch. Right-sided sinuses are intact. Skull base appears intact. The mandible is intact. There is mild degenerative erosion of the left mandibular condyle. Temporomandibular Joints: As above. Sinuses: Posttraumatic opacification of the left maxillary sinus. Multiple air-fluid levels noted of sphenoid sinuses presumably related products of hemorrhage from fracture. Small fluid level noted within the left frontal sinus. Other: Focal areas of parenchymal hemorrhage noted of the frontal lobes, previously described on head CT. IMPRESSION: 1. Multiple left facial fractures involving the maxillary sinus, zygomatic arch and lateral/superior left orbital pabon as detailed. RADIA
[2018-10-01] MEDS ORDERED: ONDANSETRON 4 MG/2 ML VIAL IVP STA (11:53)
--- NOTE | 2018-10-01 11:56 | CT Report ---
Reason: head injury neck pain Procedure Date: 10/01/2018 Accession Number: [id number] / [id number] Procedure: CT - CERVICAL SPINE WO CPT Code: FULL RESULT: EXAM: CT CERVICAL SPINE WITHOUT CONTRAST DATE: 10/01/2018 11:02 AM. HISTORY: Head injury, neck pain. COMPARISONS: HEAD W/O 06/03/2018 11:40 PM. TECHNIQUE: Thin-section axial images were acquired of the cervical spine without contrast. Post-processing: Coronal and sagittal reformats. Other: None. In accordance with CT protocol optimization, one or more of the following dose reduction techniques were utilized for this exam: automated exposure control, adjustment of mA and/or KV based on patient size, or use of iterative reconstructive technique. FINDINGS: Alignment: 2 mm of degenerative appearing grade 1 anterolisthesis of C5 on C6. Bones: No fracture or bone lesion. Interspace Levels/Facets: C1-C2: Degenerative changes at the tip of dens. C2-C3: Unremarkable. C3-C4: Degenerative disk space narrowing with mild dorsal osteophyte. C4-C5: Disk space narrowing with mild dorsal osteophyte. C5-C6: Mild bilateral facet arthrosis. C6-C7: Unremarkable. C7-T1: Unremarkable. Musculature: Normal. No fatty atrophy. Other: The paravertebral and prevertebral soft tissues are unremarkable. The lung apices are clear. IMPRESSION: Degenerative changes as detailed. No acute fracture of the cervical spine appreciated. RADIA
[2018-10-01] MEDS ORDERED: ONDANSETRON 4 MG/2 ML VIAL ONE (12:04)
[2018-10-01 12:08] LABS: BILIRUBIN,URINE NEGATIVE (NEGATIVE); GLUCOSE, URINE (UA) NEGATIVE (NEGATIVE); KETONES,URINE (UA) NEGATIVE (NEGATIVE); LEUKOCYTE ESTERASE, URINE LARGE (NEGATIVE); NITRITE,URINE POSITIVE (NEGATIVE); OCCULT BLOOD,URINE LARGE (NEGATIVE); PH,URINE 6.5 PH (5.0-7.5); PROTEIN,URINE 100 mg/dL (NEGATIVE); UROBILINOGEN,URINE 0.2 (NORMAL) E.U./dL (NORMAL)
[2018-10-01 12:10] LABS: BACTERIA,URINE Moderate /HPF (None Seen); CLARITY,URINE CLOUDY (CLEAR); SQUAMOUS EPITHELIAL CELL,UR FEW Squamous (<= Few); WBC CLUMPS,URINE PRESENT
[2018-10-01] MEDS ORDERED: ONDANSETRON 4 MG/2 ML VIAL IVP PRN (13:58)
[2018-10-01] MEDS ORDERED: MORPHINE 2 MG/ML CARPUJECT IVP PRN (13:58)
[2018-10-01] MEDS ORDERED: KETOROLAC 15 MG/ML VIAL IVP PRN (14:15)
[2018-10-01] MEDS ORDERED: LORazepam 2 MG/ML VIAL IVP PRN (14:16)
[2018-10-01] MEDS: MORPHINE 2 MG/ML CARPUJECT IVP PRN ×2 (14:46→22:04)
[2018-10-01] MEDS: SODIUM CHLORIDE FLUSH 0.9% 10 ML SYRINGE IVP PRN ×2 (14:55→22:05)
--- NOTE | 2018-10-01 15:19 | HISTORY & PHYSICAL EXAMINATION ---
Chief Complaint - Chief Complaint Chief Complaint: fall, loss of consciousness History of Present Illness - History of Present Illness HPI Comment/Other: is an 83-year-old female with a PMH significant for multiple falls in the past, hx of CVA, AFib, HTN, DM2, advanced Dementia, Depression, periphery neuropathy, who present ER for evaluation of her catastrophic fall. pt did not open her eye, has no verbal response. Pt's son is at the bedside. he did not know what it exactly happened to her mother. pt was last seen in her apartment at [facility] 4:30 PM on yesterday afternoon. Pt did not come for breakfast. patient was found on the floor between her bed and the wall at this morning. There were bruising on the left face, around orbital eye, and on left shoulder. she was found to have no response. Pt was found to have acute focal postt raumatic intraparenchymal hemorrhage adjacent to the encephalomalacia in the right frontal lobe and in the anterior left frontal lobe underlying site of injury, acute subdural blood measuring 7 mm maximum thickness over the right parietal convexity consistent with contrecoup injury, there is no significant mass-effect. Acute fractures of left maxillary sinus and left zygomatic arch, and left shoulder fracture as well. Pt's son state her mother has a request to him that no heroics measures should be done to her in the event of catastrophic illness or injury. She expressed to her son she want to join with her who has two years ago. Pt's son clearly request comfort measure only at this point, no trauma measures, no IVF, no antibiotics to pt. Pt likely had UTI at this time. Her son state he will see how much her mother could recover, and he will discuss with significant another for his mother's condition and come to hospital on tomorrow. 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 Dad also in his early 80s of heart disease. 3 sisters and one brother. One older sister is alive. The others are from heart, breast cancer, and leukemia. 2 children. One was stillborn. Son, who accompanies her, states that he is healthy. No blood pressure, cancer, diabetes, heart, or thyroid disease. Social History Notes: She was born in [place]. Went to [place] when her father moved them there to be close to a daughter who moved to the [place] area. She met her , and they were for many years. He worked for the [employer]. 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 Her wanted her to retire so that they could travel in the and they re tired when she was 39. They traveled up and down the [place]. Their favorite places were moderate in [place]. From the [facility] they moved to [place] in [place]. It was in [place] that he had a sudden heart attack, and about a month later. This was in the spring 2016. From there she was moved to [place]. From [place] she was moved to the [place]. She smoked a little bit when she was younger. It was mainly to "try it out" but it never stuck. She never had a problem with alcohol abuse and really rarely ever drink. She has no history of other recreational substance abuse. - Substance History Use: Uses substance without health or social issues: NONE - POLST Patient has POLST: No POLST Status: DNR (She does not want to be kept alive if she has cardiac or pulmonary arrest. She does not have a POLST form yet but son and she will sit down and fill one out with me.) Meds/Allgy - Home Medications Home Medications: Ambulatory Orders Medication Instructions Recorded Confirmed Atenolol 25 mg PO QPM 02/15/18 10/01/18 Atorvastatin Calcium 40 mg PO QPM 02/15/18 10/01/18 Calcium Citrate/Vitamin D3 1 tab PO DAILY 02/15/18 10/01/18 [Calcium Citrate-Vit D3 Tablet] Docusate Sodium [Dss] 250 mg PO DAILY 02/15/18 10/01/18 Fluticasone [Flonase] 2 sprays CASSANDRA DAILY 02/15/18 10/01/18 Furosemide 20 mg PO Q2D 02/15/18 10/01/18 Lisinopril 10 mg PO DAILY 02/15/18 10/01/18 QUEtiapine [SEROquel] 12.5 mg PO BIDWM 02/15/18 10/01/18 Sennosides [Senna] 8.6 mg PO BIDWM 02/15/18 10/01/18 Sertraline HCl 25 mg PO DAILY 02/15/18 10/01/18 Acetaminophen [Tylenol] 650 mg PO Q6H PRN 10/01/18 10/01/18 Clotrimazole [Clotrimazole AF] 1 applic TOP DAILY 10/01/18 10/01/18 Cyanocobalamin (Vitamin B-12) 1,000 mcg SL DAILY 10/01/18 10/01/18 [Vitamin B-12 (1000 mcg sublingual)] Famotidine [Pepcid] 40 mg PO BIDWM 10/01/18 10/01/18 Multivitamin,Therapeutic [Thera] 1 tab PO DAILY 10/01/18 10/01/18 - Allergies Allergies/Adverse Reactions: Allergies Allergy/AdvReac Type Severity Reaction Status Date / Time codeine Allergy Edema Verified 05/05/18 07:32 Review of Systems - Other Findings Other Findings: pt lost her consciousness, could not answer any questions Exam - Vital Signs Vital Signs: Vital Signs x48h Temp Pulse Resp BP Pulse Ox 10/01/18 14:24 87 19 126/65 97 10/01/18 13:30 36.3 C L 89 21 128/66 96 10/01/18 13:00 82 20 109/66 100 10/01/18 12:00 129 H 15 124/85 H 97 10/01/18 11:30 113 H 17 159/70 H 97 10/01/18 11:01 36 C L 10/01/18 10:27 116 H 14 140/94 H 97 - Physical Exam General Appearance: positive: No acute distress, Alert, Lethargic Eyes Bilateral: positive: Other (left orbital bruise. pt did not follow commend and open her eye) ENT: positive: ENT inspection nml, No signs of dehydration. negative: Purulent nasal drainage, Pharyngeal erythema Neck: positive: Nml inspection, Thyroid nml, No JVD, Trachea midline. negative: Thyromegaly, Lymphadenopathy (R), Lymphadenopathy (L), Swelling/bruising, Tracheal deviation Respiratory: positive: Chest non-tender, No respiratory distress, Breath sounds nml. negative: Wheezes, Rales, Rhonchi Cardiovascular: positive: Regular rate & rhythm, No murmur, No gallop. negative: Irregularly irregular, Extrasystoles, Tachycardia, Bradycardia, JVD p resent, Systolic murmur, Diastolic murmur Peripheral Pulses: positive: 2+ Abdomen: positive: Non-tender, No organomegaly, Nml bowel sounds, No distention. negative: Tenderness, Guarding, Rebound Back: positive: Nml inspection. negative: CVA tenderness (R), CVA tenderness (L) Skin: positive: Color nml, No rash, Warm, Dry. negative: Cyanosis, Diaphoresis, Pallor Extremities: positive: Nml appearance. negative: Calf tenderness, Joint swelling, Preston's sign/cords Neurologic/Psychiatric: negative: Facial droop Sepsis Event Note (H) - Evaluation Current Stage of Sepsis: Ruled out Conclusion/Plan - Problem List (1) Traumatic intracranial hemorrhage Conclusion/Plan: after fall, pt had loss of her consciousness. CT of head found pt had intracranial hemorrhage, adjacent to the encephalomalacia in the right frontal lobe and in the anterior left frontal lobe underlying site of injury. pt's son choose comfort measure only for pt. (2) Comfort measures only status Conclusion/Plan: pt's son request comfort measure only status for pt. we will support. hospice care can be tomorrow after her son return to hospital for further care for pt (3) Loss of consciousness Conclusion/Plan: pt did not open her eyes, did not followup any commends. comfort measure only now (4) Fall Conclusion/Plan: pt has hx of multiple fall. pt had catastrophic fall at this time. comfortable measure (5) Traumatic subdural hemorrhage Conclusion/Plan: CT reveals pt has subdural hematoma/hemorrhage, likely further cause pt lost her consciousness. comfort measure status Qualifiers: Encounter type: initial encounter Loss of consciousness presence/duration: with LOC of unspecified duration Qualified Code(s): S06.5X9A - Traumatic subdural hemorrhage with loss of consciousness of unspecified duration, initial encounter (6) Fracture of left maxilla Conclusion/Plan: IV of Morphine for pt's pain control (7) Fracture of left shoulder Conclusion/Plan: IV fo pain meds, comfort measure (8) Fracture of zygomatic arch Conclusion/Plan: IV of Morphine, pain control (9) UTI (urinary tract infection) Conclusion/Plan: pt likely had UTI, and elevated WBC. pt's son choose comfort measure only now, her son request hold of antibiotics (10) Dementia Conclusion/Plan: hx of Dementia, continue support pt (11) Afib Conclusion/Plan: heart rate is controlled, HR 84 now. stable (12) DM2 (diabetes mellitus, type 2) Conclusion/Plan: pt is on comfort measure, hold insulin now (13) HTN (hypertension) Conclusion/Plan: stable, followup comfort measure - Lab Results Fish Bones: 10/01/18 10:37 10/01/18 10:37 Core Measures - Anticipated LOS I expect patient to be DC'd or transferred within 96 hours.: Yes - DVT/VTE - Prophylaxis VTE/DVT Device ordered at admit?: Yes VTE/DVT Prophylaxis med ordered at admit?: Yes
--- NOTE | 2018-10-01 15:22 | ADVANCE CARE PLANNING NOTE ---
Advance Care Planning - Planning Encounter Date: 10/01/18 Time: 14:20 Purpose: possible hospice care Parties in Attendance: pt's son and me. pt is loss of consciousness now. Decisional Capacity of the Patient: pt is loss of consciousness now. pt's only son make the decision. - Diagnosis for Encounter (1) Traumatic subdural hemorrhage Qualifiers: Encounter type: initial encounter Loss of consciousness presence/duration: with LOC of unspecified duration Qualified Code(s): S06.5X9A - Traumatic subdural hemorrhage with loss of consciousness of unspecified duration, initial encounter - Encounter Subjective/Patient's Story: pt loss her consciousness as far after she had very bad fall. Pt's son report she was found to fall the bedroom floor and pt was no consciousness. He state pt has two major fall in the pass which result injury. he state his mother expressed many time she do not want to extend her life since she lost her two years ago, she expressed she want to followup her . Pt had three locations bleeding at intracranial on CT of brain. The son request clearly only comfort measure now, no trauma management for her mother. he will talk with his friend to make the hospice final decision on tomorrow morning. Objective/Medical Story: pt was found to have acute focal posttraumatic hemorrhage in the right frontal lobe and in the anterior left frontal lobe, acute subdural blood consistent with contrecoup injury. acute fractures of the left maxillary sinus and left zygomatic arch, and left shoulder fracture. Goals of Care: comfort measure only Plan: DNR with comfort measure only Code Status: Do Not Attempt Resuscitation Time spent on advance care plannin
[2018-10-01] MEDS: SODIUM CHLORIDE FLUSH 0.9% 10 ML SYRINGE IVP SCH (18:12)
[2018-10-02] MEDS: SODIUM CHLORIDE FLUSH 0.9% 10 ML SYRINGE IVP SCH ×3 (01:04→17:49)
[2018-10-02] MEDS: SODIUM CHLORIDE FLUSH 0.9% 10 ML SYRINGE IVP PRN ×2 (08:25→10:22)
[2018-10-02] MEDS: POLYETHYLENE GLYCOL 3350 17 GM PACKET PO SCH (08:25)
[2018-10-02] MEDS: MORPHINE 2 MG/ML CARPUJECT IVP PRN ×3 (08:25→12:53)
--- NOTE | 2018-10-02 14:23 | PROVIDER PROGRESS NOTE ---
Subjective - Prog Note Date Prog Note Date: 10/02/18 - Subjective Subjective: pt is still aphasia, lethargic. Pt's son request hospice service. Hospice care was referred. Dr. Reyes visited pt. Per Dr. Reyes's recommend, IV of Morphine 2 mg Q6H scheduled, plus PRN Morphine Q2H 2 mg. pt is aphasia from her injury, pt had multiple fractures from her fall. Per Dr. Reyes's report, pt's son agree to have hospice care, pt is planed to d/c to [facility] with hospice care on tomorrow. [facility] need prepare equipments for hospice care. Current Medications - Current Medications Current Medications: Active Medications Lorazepam (Ativan Inj (Vial)) 0.5 mg IVP Q6H PRN PRN Reason: Anxiety Morphine Sulfate (Morphine (Carpuject)) 2 mg IVP Q2HR PRN PRN Reason: PAIN Last Admin: 10/02/18 12:53 Dose: 2 mg Morphine Sulfate (Morphine (Carpuject)) 2 mg IVP Q6HR [facility] Ondansetron HCl (Zofran Inj) 4 mg IVP Q6HR PRN PRN Reason: Nausea / Vomiting Last Admin: 10/01/18 14:46 Dose: 4 mg Polyethylene Glycol (Miralax) 17 gm PO DAILY [facility] Last Admin: 10/02/18 08:25 Dose: Not Given Sodium Chloride (Normal Saline Flush 0.9%) 10 ml IVP PRN PRN PRN Reason: NEEDED PER PROVIDER ORDERS Last Admin: 10/02/18 10:22 Dose: 10 ml Sodium Chloride (Normal Saline Flush 0.9%) 10 ml IVP 0100,0900,1700 [facility] Last Admin: 10/02/18 09:56 Dose: Not Given Atenolol 25 mg PO QPM 02/15/18 Atorvastatin Calcium 40 mg PO QPM 02/15/18 Calcium Citrate/Vitamin D3 [Calcium Citrate-Vit D3 Tablet] 1 tab PO DAILY 02/15/18 Docusate Sodium [Dss] 250 mg PO DAILY 02/15/18 Fluticasone [Flonase] 2 sprays CASSANDRA DAILY 02/15/18 Furosemide 20 mg PO Q2D 02/15/18 Lisinopril 10 mg PO DAILY 02/15/18 QUEtiapine [SEROquel] 12.5 mg PO BIDWM 02/15/18 Sennosides [Senna] 8.6 mg PO BIDWM 02/15/18 Sertraline HCl 25 mg PO DAILY 02/15/18 Acetaminophen [Tylenol] 650 mg PO Q6H PRN 10/01/18 Clotrimazole [Clotrimazole AF] 1 applic TOP DAILY 10/01/18 Cyanocobalamin (Vitamin B-12) [Vitamin B-12 (1000 mcg sublingual)] 1,000 mcg SL DAILY 10/01/18 Famotidine [Pepcid] 40 mg PO BIDWM 10/01/18 Multivitamin,Therapeutic [Thera] 1 tab PO DAILY 10/01/18 Objective - Vital Signs/Intake & Output Reviewed Vital Signs: Yes Vital Signs: Vital Signs x48h Temp Pulse Resp BP Pulse Ox 10/02/18 07:52 36.4 C L 84 18 154/69 H 95 Intake & Output: Intake & Output 09/29/18 09/30/18 10/01/18 10/02/18 23:59 23:59 23:59 23:59 Output Total 150 150 Balance -150 -150 - Objective General Appearance: positive: No acute distress, Alert, Lethargic Eyes Bilateral: positive: Other (eye closed, left eye orbital with bruise) ENT: positive: ENT inspection nml, Dry mucous membranes Neck: positive: Nml inspection, Thyroid nml, Trachea midline. negative: Thyromegaly, Lymphadenopathy (R), Lymphadenopathy (L) Respiratory: negative: No respiratory distress, Wheezes, Rales, Rhonchi Cardiovascular: positive: No murmur, No gallop. negative: Tachycardia, Bradycardia, Systolic murmur, Diastolic murmur Peripheral Pulses: 2+ Radial (R), 2+ Radial (L) Abdomen: positive: Nml bowel sounds, No distention Skin: positive: Color nml, No rash, Warm, Dry. negative: Cyanosis, Diaphoresis, Pallor Neurologic/Psychiatric: negative: Facial droop, Slurred/abnml speech - Lab Results Fish Bones: 10/01/18 10:37 10/01/18 10:37 ABX Reporting Has patient been on IV antibiotics over the past 48 hours?: No Sepsis Event Note (H) - Evaluation Current Stage of Sepsis: Ruled out Assessment/Plan - Problem List (1) Traumatic intracranial hemorrhage Impression: 10/02 pt's mental status seems keeping the similar as yesterday. pt's son choose hospice care. after fall, pt had loss of her consciousness. CT of head found pt had intracranial hemorrhage, adjacent to the encephalomalacia in the right frontal lobe and in the anterior left frontal lobe underlying site of injury. pt's son choose comfort measure only for pt. (2) Comfort measures only status Conclusion/Plan: pt's son request comfort measure only status for pt. we will support. hospice care can be tomorrow after her son return to hospital for further care for pt (3) Loss of consciousness Conclusion/Plan: pt did not open her eyes, did not followup any commends. comfort measure only now (4) Fall Conclusion/Plan: pt has hx of multiple fall. pt had catastrophic fall at this time. comfortable measure (5) Traumatic subdural hemorrhage Conclusion/Plan: CT reveals pt has subdural hematoma/hemorrhage, likely further cause pt lost her consciousness. comfort measure status Qualifiers: Encounter type: initial encounter Loss of consciousness presence/duration: with LOC of unspecified duration Qualified Code(s): S06.5X9A - Traumatic subdural hemorrhage with loss of consciousness of unspecified duration, initial encounter (6) Fracture of left maxilla Conclusion/Plan: 10/02 per Eric's recommendation, add scheduled Morphine Q6H 2 mg, plus Morphine PRN Q2H 2 mg. pt had multiple fractures, aphasia and intracranial bleeding IV of Morphine for pt's pain control (7) Fracture of left shoulder Conclusion/Plan: IV fo pain meds, comfort measure (8) Fracture of zygomatic arch Conclusion/Plan: IV of Morphine, pain control (9) UTI (urinary tract infection) Conclusion/Plan: pt likely had UTI, and elevated WBC. pt's son choose comfort measure only now, her son request hold of antibiotics (10) Dementia Conclusion/Plan: hx of Dementia, continue support pt (11) Afib Conclusion/Plan: heart rate is controlled, HR 84 now. stable (12) DM2 (diabetes mellitus, type 2) Conclusion/Plan: pt is on comfort measure, hold insulin now (13) HTN (hypertension) Conclusion/Plan: stable, followup comfort measure (14) Hospice care 10/02 pt is aphasia from her injury. pt's son choose hospice care for pt. Dr. Reyes was consulted for pt's hospice care. Dr. Reyes accepted pt. pt is planned to be d/c to [facility] on tomorrow under the care by for hospice care. (5) Traumatic subdural hemorrhage Qualifiers: Encounter type: initial encounter Loss of consciousness presence/duration: with LOC of unspecified duration Qualified Code(s): S06.5X9A - Traumatic subdural hemorrhage with loss of consciousness of unspecified duration, initial encounter
[2018-10-02] MEDS: MORPHINE 2 MG/ML CARPUJECT IVP SCH (17:49)
[2018-10-03] MEDS: MORPHINE 2 MG/ML CARPUJECT IVP SCH ×2 (00:10→05:36)
[2018-10-03] MEDS: SODIUM CHLORIDE FLUSH 0.9% 10 ML SYRINGE IVP SCH ×2 (00:11→10:28)
[2018-10-03] MEDS: SODIUM CHLORIDE FLUSH 0.9% 10 ML SYRINGE IVP PRN (05:36)
[2018-10-03 08:35] VITALS: BP 159/80
--- NOTE | 2018-10-03 10:08 | Discharge Plan ---
"Discharge Plan for SNF / LONG TERM - Discharge Plan And Transition Orders Problem Reviewed?: Yes Disposition: 50 Hospice/Home DC/Xfer Condition: Serious Allergies and Adverse Reactions: Allergies Allergy/AdvReac Type Severity Reaction Status Date / Time codeine Allergy Edema Verified 05/05/18 07:32 Health Concerns: hospice care Plan of Treatment: followup hospice care team Care Goals: hospice care Assessment: fall, intracranial bleed, unresponsive, and hospice care - SNF / [facility] Transition Orders Admit to (Facility): [facility] Under the care of (Name): Dr. Reyes Discharge Diagnosis: hospice care,fall, intracranial bleed, unresponsive Medicare Certification Statement: I do not certify that [facility] Hospital halfway care is medically necessary on a continuing basis for any of the conditions for which she/he is receiving care during hospitalization. Notify PCP of admission and forward orders to primary provider for signature. Other Notification Orders: Call PCP immediately if patient develops dyspnea, chest pain/tightness or edema. Additional Bowel Program Orders: If no BM after 2 days, nurse may give M.O.M. 30ml PO PRN and/or ducolax Supp 1 DE and/or ARY 250mg P.O., and/or senna 1-2 tabs PO. On day 3 nurse may give repeat above order until residents constipation is resolved. Treatments & Other Orders: followup hospice care after pt is arrival Oxygen Orders: PRN Medication Orders: PLEASE REFER TO THE DISCHARGE MEDICATION LIST. Insulin Orders?: No - Medications New Prescriptions: LORazepam [Ativan] 0.5 mg PO Q6H PRN #10 tablet PRN Reason: Anxiety Morphine Sulfate [Morphine Sulf Oral (Roxanol)] 5 mg PO Q6H PRN #30 ml PRN Reason: Pain/Dyspnea - Therapies | Activity Additional Instructions: pt may followup hospice care"
--- NOTE | 2018-10-03 10:19 | DISCHARGE SUMMARY ---
Discharge Summary Discharge Date: 10/03/18 Discharging Provider: MÁRQUEZ Primary Care Provider: Dr. Brian Condition at Discharge: Serious Discharge Disposition: 50 Hospice/Home DC/Xfer Discharge Facility Name: [facility] - DIAGNOSES Admission Diagnoses: (1) Traumatic intracranial hemorrhage (2) Comfort measures only status (3) Loss of consciousness (4) Fall (5) Traumatic subdural hemorrhage (6) Fracture of left maxilla (7) Fracture of left shoulder (8) Fracture of zygomatic arch (9) UTI (urinary tract infection) (10) Dementia (11) Afib (12) DM2 (diabetes mellitus, type 2) (13) HTN (hypertension) Discharge Diagnoses with Status of Each Condition: (1) Traumatic intracranial hemorrhage hospice care (2) Comfort measures only status pt's son request comfort measure only and hospice care (3) unresponsive continue unresponsive, and hospice care (4) Fall hospice care (5) Traumatic subdural hemorrhage hospice care (6) Fracture of left maxilla pain control, hospice care (7) Fracture of left shoulder pain control, hospice care (8) Fracture of zygomatic arch pain control, hospice care (9) UTI (urinary tract infection) comfort measure only and hospice care (10) Dementia hospice care (11) Afib hospice care (12) DM2 (diabetes mellitus, type 2) hospice care (13) HTN (hypertension) hospice care (14) hospice care pt's son request hospice care - HPI History of Present Illness: is an 83-year-old female with a PMH significant for multiple falls in the past, hx of CVA, AFib, HTN, DM2, advanced Dementia, Depression, periphery neuropathy, who present ER for evaluation of her catastrophic fall. pt did not open her eye, has no verbal response. Pt's son is at the bedside. he did not know what it exactly happened to her mother. pt was last seen in her apartment at [facility] 4:30 PM on yesterday afternoon. Pt did not come for breakfast. patient was found on the floor between her bed and the wall at this morning. There were bruising on the left face, around orbital eye, and on left shoulder. she was found to have no response. Pt was found to have acute focal posttraumatic intraparenchymal hemorrhage adjacent to the encephalomalacia in the right frontal lobe and in the anterior left frontal lobe underlying site of injury, acute subdural blood measuring 7 mm maximum thickness over the right parietal convexity consistent with contrecoup injury, there is no significant mass-effect. Acute fractures of left maxillary sinus and left zygomatic arch, and left shoulder fracture as well. Pt's son state her mother has a request to him that no heroics measures should be done to her in the event of catastrophic illness or injury. She expressed to her son she want to join with her who has two years ago. Pt's son clearly request comfort measure only at this point, no trauma measures, no IVF, no antibiotics to pt. Pt likely had UTI at this time. Her son state he will see how much her mother could recover, and he will discuss with significant another for his mother's condition and come to hospital on tomorrow. - HOSPITAL COURSE Hospital Course: pt was admitt for her Fall and unresponsive. pt was found intraparenchymal hemorrhage, and subdural hematoma, and multiple facial fracture, and left shoulder fracture. pt also was found to have UTI. pt continue unresponsive and aphasia. pt's son, JENNIE, choose comfort measure only, no further intervention. Pt's son request hospice service. Hospice provider, Dr. Reyes saw pt and accepted pt for hospice care. pt is d/c to [facility] for hospice care. 1) Traumatic intracranial hemorrhage hospice care (2) Comfort measures only status pt's son request comfort measure only and hospice care (3) unresponsive continue unresponsive, and hospice care (4) Fall hospice care (5) Traumatic subdural hemorrhage hospice care (6) Fracture of left maxilla pain control, hospice care (7) Fracture of left shoulder pain control, hospice care (8) Fracture of zygomatic arch pain control, hospice care (9) UTI (urinary tract infection) comfort measure only and hospice care (10) Dementia hospice care (11) Afib hospice care (12) DM2 (diabetes mellitus, type 2) hospice care (13) HTN (hypertension) hospice care (14) hospice care pt's son request hospice care - ALLERGIES Allergies/Adverse Reactions: Allergies Allergy/AdvReac Type Severity Reaction Status Date / Time codeine Allergy Edema Verified 05/05/18 07:32 - MEDICATIONS Home Medications: Ambulatory Orders Medication Instructions Recorded Confirmed Atenolol 25 mg PO QPM 02/15/18 10/01/18 Atorvastatin Calcium 40 mg PO QPM 02/15/18 10/01/18 Calcium Citrate/Vitamin D3 1 tab PO DAILY 02/15/18 10/01/18 [Calcium Citrate-Vit D3 Tablet] Docusate Sodium [Dss] 250 mg PO DAILY 02/15/18 10/01/18 Fluticasone [Flonase] 2 sprays CASSANDRA DAILY 02/15/18 10/01/18 Furosemide 20 mg PO Q2D 02/15/18 10/01/18 Lisinopril 10 mg PO DAILY 02/15/18 10/01/18 QUEtiapine [SEROquel] 12.5 mg PO BIDWM 02/15/18 10/01/18 Sennosides [Senna] 8.6 mg PO BIDWM 02/15/18 10/01/18 Sertraline HCl 25 mg PO DAILY 02/15/18 10/01/18 Acetaminophen [Tylenol] 650 mg PO Q6H PRN 10/01/18 10/01/18 Clotrimazole [Clotrimazole AF] 1 applic TOP DAILY 10/01/18 10/01/18 Cyanocobalamin (Vitamin B-12) 1,000 mcg SL DAILY 10/01/18 10/01/18 [Vitamin B-12 (1000 mcg sublingual)] Famotidine [Pepcid] 40 mg PO BIDWM 10/01/18 10/01/18 Multivitamin,Therapeutic [Thera] 1 tab PO DAILY 10/01/18 10/01/18 LORazepam [Ativan] 0.5 mg PO Q6H PRN #10 tablet 10/03/18 Morphine Sulfate [Morphine Sulf 5 mg PO Q6H PRN #30 ml 10/03/18 Oral (Roxanol)] - PHYSICAL EXAM AT DISCHARGE General Appearance: positive: No acute distress, Lethargic Eyes Bilateral: positive: Other (bruise at orbital on left eye) ENT: positive: ENT inspection nml Neck: positive: Nml inspection, Trachea midline. negative: Thyromegaly, Lymphadenopathy (R), Lymphadenopathy (L) Respiratory: positive: Other (slow breath) Cardiovascular: positive: No murmur, No gallop, Tachycardia Abdomen: positive: Nml bowel sounds, No distention Skin: positive: Warm, Dry Extremities: positive: Joint swelling. negative: Preston's sign/cords Neurologic/Psychiatric: negative: Facial droop - LABS Result Diagrams: 10/01/18 10:37 10/01/18 10:37 - SEPSIS Current Stage of Sepsis: Ruled out - FOLLOW UP Follow Up: followup hospice care - TIME SPENT Time Spent in Discharge (Minutes): 55
[2018-10-03] MEDS: POLYETHYLENE GLYCOL 3350 17 GM PACKET PO SCH (10:28)
[2018-10-03] MEDS: MORPHINE 2 MG/ML CARPUJECT IVP PRN (10:31)
== END 2018-10-03 11:59 | disposition hospice, home (50) ==
LOC: EDUNIT# → ED 10:25 → MS2 13:58
PROVIDERS: ADMIT Nurse Practitioner Gerontology; ATTEND Nurse Practitioner Gerontology
DX: S06.309A Unspecified focal traumatic brain injury with loss of consciousness of unspecified duration, initial encounter (principal); W19.XXXA Unspecified fall, initial encounter; Z91.81 History of falling; Y92.003 Bedroom of unspecified non-institutional (private) residence as the place of occurrence of the external cause; S02.40DA Maxillary fracture, left side, initial encounter for closed fracture; S02.40FA Zygomatic fracture, left side, initial encounter for closed fracture; S02.82XA Fracture of other specified skull and facial bones, left side, initial encounter for closed fracture; S42.212A Unspecified displaced fracture of surgical neck of left humerus, initial encounter for closed fracture; N39.0 Urinary tract infection, site not specified; F03.90 Unspecified dementia, unspecified severity, without behavioral disturbance, psychotic disturbance, mood disturbance, and anxiety; I48.91 Unspecified atrial fibrillation; I10 Essential (primary) hypertension; E11.42 Type 2 diabetes mellitus with diabetic polyneuropathy; Z86.73 Personal history of transient ischemic attack (TIA), and cerebral infarction without residual deficits; Z95.0 Presence of cardiac pacemaker; R47.01 Aphasia; Z66 Do not resuscitate
CPT/HCPCS: 36415; 70450; 70486; 71045; 72125; 73030; 80053; 81001; 82550; 82553; 83605; 83690; 85025; 87086; 87181; 96374; 96375; 96376; 99285; G0378; 81003; 85610

== ENCOUNTER 2018-10-03 11:59 | Outpatient (CLI) | payer MEDICARE | END 2018-10-03 12:00 | disposition home or self-care (01) | LOC: EMS 11:59 | PROVIDERS: ATTEND Surgery | DX: S06.309A Unspecified focal traumatic brain injury with loss of consciousness of unspecified duration, initial encounter (principal); W18.30XA Fall on same level, unspecified, initial encounter ==